=== PATIENT | male | born 1965 | race Caucasian/White ===

== ENCOUNTER 2017-12-15 11:01 | Inpatient (IN) | payer OTHER ==
[~2017-12-15] VITALS: Ht 190.5 cm; Wt 96.6 kg
[2017-12-15] MEDS ORDERED: LIDOCAINE 1%/EPI 1:100,000 20 ML VIAL. INJ ONE (11:45)
--- NOTE | 2017-12-15 12:26 | PHYS DOC ---
Past Medical History Past Medical History: Other Additional Past Medical Histor: DVT IN R LEG, 10/2017 Past Surgical History: Knee Replacement Additional Past Surgical Histo: BACK FUSION Alcohol Use: None Drug Use: None Adult General Chief Complaint Chief Complaint: LACERATION/AVULSION HPI HPI Patient is a 52 year old male who presents to the emergency Department today with complaints of a puncture wound to his lower left leg. Patient is in police custody at this time. He states he was getting down from his bunk at the [facility] when he struck his leg on a metal chair in the cell. He reports the site will not stop bleeding. He has bled through 4 pressure dressings. Pt states he is taking xarelto for a DVT in his RLE currently. He denies any numbness or tingling, loss of consciousness, or weakness. States he walked himself to the nurse in [facility] after the incident happened. Currently, he rates his pain an 8 out of 10 on the pain scale. Review of Systems Review of Systems Constitutional: Denies fever or chills [] Musculoskeletal: Denies back pain; reports left lower leg pain Integument: Denies rash, reports laceration/ puncture wound to medial left lower leg Neurologic: Denies focal weakness or sensory changes [] All other systems were reviewed and found to be within normal limits, except as documented in this note. Current Medications Current Medications Current Medications Medications (Trade) Dose Ordered Sig/Francia Start Time Stop Time Status Last Admin Dose Admin Fentanyl Citrate (Fentanyl 2ml Vial) 50 mcg 1X ONCE 12/15/17 12:30 12/15/17 12:56 DC 12/15/17 13:02 50 MCG Gelatin (Gelfoam Size 100) 1 each 1X ONCE 12/15/17 14:15 12/15/17 14:16 DC 12/15/17 14:06 1 EACH Lidocaine/ Epinephrine (LIDOCAINE 1%-EPI 1:100,000 Multi-Dose) 20 ml 1X ONCE 12/15/17 11:45 12/15/17 12:56 DC 12/15/17 14:56 20 ML Allergies Allergies Allergies Coded Allergies Type Severity Reaction Last Updated Verified No Known Drug Allergies 12/15/17 No Physical Exam Physical Exam Constitutional: Well developed, well nourished, no acute distress, non-toxic appearance. [] HENT: Normocephalic, atraumatic, bilateral external ears normal, oropharynx moist, no oral exudates, nose normal. [] Eyes: normal Skin: Warm, dry, V-shaped 2 cm x 2cm puncture/ laceration to medial left lower extremity bleeding controlled only with direct pressure Extremities: No cyanosis, no clubbing, ROM intact, no edemal; medial LLE tender to palpation [] Neurologic: Alert and oriented X 3, normal motor function, normal sensory function, no focal deficits noted. [] Psychologic: Affect normal, judgement normal, mood normal. [] Current Patient Data Vital Signs Vital Signs Date Time Temp Pulse Resp B/P (MAP) Pulse Ox O2 Delivery O2 Flow Rate FiO2 12/15/17 14:52 80 18 151/85 (107) 97 Room Air 12/15/17 11:19 98.2 98.2 Lab Values Laboratory Tests Test 12/15/17 12:43 White Blood Count 8.9 x10^3/uL (4.0-11.0) Red Blood Count 4.80 x10^6/uL (4.30-5.70) Hemoglobin 15.1 g/dL (13.0-17.5) Hematocrit 43.2 % (39.0-53.0) Mean Corpuscular Volume 90 fL (79-100) Mean Corpuscular Hemoglobin 31 pg (25-35) Mean Corpuscular Hemoglobin Concent 35 g/dL (31-37) Red Cell Distribution Width 14.0 % (11.5-14.5) Platelet Count 199 x10^3/uL (140-400) Neutrophils (%) (Auto) 84 % (31-73) H Lymphocytes (%) (Auto) 9 % (24-48) L Monocytes (%) (Auto) 5 % (0-9) Eosinophils (%) (Auto) 2 % (0-3) Basophils (%) (Auto) 1 % (0-3) Neutrophils # (Auto) 7.5 x10^3uL (1.8-7.7) Lymphocytes # (Auto) 0.8 x10^3/uL (1.0-4.8) L Monocytes # (Auto) 0.4 x10^3/uL (0.0-1.1) Eosinophils # (Auto) 0.2 x10^3/uL (0.0-0.7) Basophils # (Auto) 0.0 x10^3/uL (0.0-0.2) Prothrombin Time 21.8 SEC (11.7-14.0) H Prothrombin Time INR 2.0 (0.8-1.1) H Laboratory Tests 12/15/17 12:43 EKG EKG [] Radiology/Procedures Radiology/Procedures [] Course & Med Decision Making Course & Med Decision Making Pertinent Labs and Imaging studies reviewed. (See chart for details) X-ray was negative for any acute fracture. Bleeding ceased after suturing and gelfoam dressing was placed. Pt was instructed to continue taking xarelto and to follow up with primary care doctor or [facility] doctor tomorrow for recheck of the wound and further evalution of need for xarelto. May take tylenol as needed for pain. Activity as tolerated, sutures out in 10 days. Leave the dressing that was placed in the ER on until follow- up tomorrow. Patient verbalized an understanding of home care, medications, follow-up, and return to ED instructions and was in agreement with the plan of care. 1540- after patient ambulated to the bathroom, wound site began bleeding again, hospitalist paged for admit. 1546- spoke with Dr. Langley, will admit patient for further monitoring of laceration with bleeding. Dragon Disclaimer Dragon Disclaimer This electronic medical record was generated, in whole or in part, using a voice recognition dictation system. Departure Departure Impression: Primary Impression: Laceration of left lower leg without foreign body Additional Impression: Contusion of left lower leg, initial encounter Disposition: ADMITTED INPATIENT Admitting Physician: Angelita Langley Condition: STABLE Referrals: NO PCP (PCP) Patient Instructions: Contusion, [id number], Laceration Care, Adult, Easy-to- Read Additional Instructions: Continue taking xarelto. Follow up with primary care doctor or [facility] doctor tomorrow for recheck of the wound and further evaluation of need for xarelto. May take tylenol as needed for pain. Activity as tolerated, sutures out in 10 days. Leave the dressing that was placed in the ER on until follow- up tomorrow. Laceration/Wound Repair Laceration/Wound Repair : Wound Location: lower extremity (medial left lower leg) Wound's Depth, Shape: flap (chayo) Wound Explored: no foreign body removed Irrigated w/ Saline (ccs): 50 Betadine Prep?: Yes Anesthesia: Lidocaine w/ Epi Volume Anesthetic (ccs): 10 Wound Debrided: moderate Wound Repaired With: sutures Suture Size/Type: 3:0 Number of Sutures: 9 Layer Closure?: No Splint Applied?: No Sling Applied?: No Progress patient tolerated procedure well, mild bleeding at suture sites, gelfoam was applied by nurse and bleeding ceased. Problem Qualifiers Primary Impression: Laceration of left lower leg without foreign body Encounter type: initial encounter Qualified Codes: S81.812A - Laceration without foreign body, left lower leg, initial encounter VASYL MOREAU [employer] PROCESSING TECHNICIAN Dec 15, 2017 12:26
--- NOTE | 2017-12-15 12:29 | RAD ---
Left tibia and fibula, 2 view, 12/15/2017. HISTORY: Puncture wound A leg shackle is in place at the ankle. Mild degenerative change is present at the knee. No acute bony abnormality is detected. A partially radiopaque bandage is projected over the soft tissues medially. No radiopaque foreign body is seen in the soft tissues on this limited exam. IMPRESSION: No acute bony abnormality is detected. Electronically signed by: Eduardo Ramirez MD (12/15/2017 12:26 PM) [facility]
[2017-12-15] MEDS ORDERED: fentaNYL PF VIAL 100 MCG/2 ML VIAL IV ONE (12:30)
[2017-12-15 12:55] LABS: BASO % 1 % (0-3); EOS # 0.2 x10^3/uL (0.0-0.7); EOS % 2 % (0-3); HEMATOCRIT 43.2 % (39.0-53.0); HEMOGLOBIN 15.1 g/dL (13.0-17.5); LYMPH # 0.8 x10^3/uL (1.0-4.8); LYMPH % 9 % (24-48); MEAN CORPUSCULAR HEMOGLOBIN 31 pg (25-35); MEAN CORPUSCULAR HGB CONC 35 g/dL (31-37); MEAN CORPUSCULAR VOLUME 90 fL (79-100); MONO # 0.4 x10^3/uL (0.0-1.1); MONO % 5 % (0-9); NEUT # 7.5 x10^3uL (1.8-7.7); NEUT % 84 % (31-73); PLATELET COUNT 199 x10^3/uL (140-400); WHITE BLOOD COUNT 8.9 x10^3/uL (4.0-11.0)
[2017-12-15 13:10] LABS: PROTHROMBIN TIME PATIENT 21.8 SEC (11.7-14.0)
[2017-12-15] MEDS ORDERED: GELATIN SPONGE SIZE 100. ONE (13:58)
[2017-12-15] MEDS ORDERED: GELATIN SPONGE SIZE 100. TP ONE (14:15)
[2017-12-15] MEDS ORDERED: ONDANSETRON PF 4 MG/2 ML VIAL. IV PRN (16:00)
[2017-12-15] MEDS ORDERED: LORazepam 1 MG TABLET PO ONE (16:00)
--- NOTE | 2017-12-15 17:24 | PDOC1 ---
History and Physical Date of Admission Date of Admission DATE: 12/15/17 TIME: 17:20 Identification/Chief Complaint Chief Complaint bleeding Source Source: Chart review, Patient History of Present Illness History of Present Illness Patient Mr Villarreal is a 52 year old male admit for acute leg wound with extensive laceration, is s/p a puncture wound to his lower left leg. He fell out of his bunk and smashed his leg to a metal chair, and tore open his left lower leg on upper anteroir portion,. He bled prfusely as he is on xarleto for recent DVT He denies any numbness or tingling, loss of consciousness, or weakness. States he walked himself to the nurse in [facility] after the incident happened. Currently, he rates his pain an 8 out of 10 on the pain scale. In [facility] on drug charges, he was previously homeless Past Medical History Cardiovascular: No pertinent hx Psych: Anxiety Rheumatologic: No pertinent hx Infectious disease: No pertinent hx ENT: No pertinent hx Social History Smoke: No ALCOHOL: none Drugs: None, Other Current Problem List Problem List Problems Medical Problems: (1) Contusion of left lower leg, initial encounter Status: Acute (2) Laceration of left lower leg without foreign body Status: Acute Current Medications Current Medications Current Medications Lidocaine/ Epinephrine (LIDOCAINE 1%-EPI 1:100,000 Multi-Dose) 20 ml 1X ONCE INJ Last administered on 12/15/17at 14:56; Start 12/15/17 at 11:45; Stop at 12:56; Status DC Fentanyl Citrate (Fentanyl 2ml Vial) 50 mcg 1X ONCE IV Last administered on at 13:02; Start 12/15/17 at 12:30; Stop 12/15/17 at 12:56; Status DC Gelatin (Gelfoam Size 100) 1 each STK-MED ONCE .ROUTE ; Start 12/15/17 at 13:58 ; Stop 12/15/17 at 13:59; Status DC Gelatin (Gelfoam Size 100) 1 each 1X ONCE TP Last administered on 12/15/17at 14:06; Start 12/15/17 at 14:15; Stop 12/15/17 at 14:16; Status DC Lorazepam (Ativan) 1 mg 1X ONCE PO Last administered on 12/15/17at 16:16; Start 12/15/17 at 16:00; Stop 12/15/17 at 16:01; Status DC Ondansetron HCl (Zofran) 4 mg PRN Q8HRS PRN IV NAUSEA/VOMITING; Start 12/15/17 at 16:00; Stop 12/16/17 at 15:59 Fentanyl Citrate (Fentanyl 2ml Vial) 50 mcg PRN Q2HR PRN IV PAIN; Start at 16:00; Stop 12/16/17 at 15:59 Allergies Allergies: Coded Allergies: No Known Drug Allergies (Unverified , 12/15/17) ROS General: No: Chills, Night Sweats, Fatigue, Malaise, Appetite, Other PSYCHOLOGICAL ROS: YES: Anxiety; No: Behavioral Disorder, Concentration difficultie, Decreased libido, Depression, Disorientation, Hallucinations, Hostility, Irritablity, Memory difficulties, Mood Swings, Obsessive thoughts, Physical abuse, Sexual abuse, Sleep disturbances, Suicidal ideation, Other Eyes: No Blurry vision, No Decreased vision, No Double vision, No Dry eyes, No Excessive tearing, No Eye Pain, No Itchy Eyes, No Loss of vision, No Photophobia , No Scotomata, No Uses contacts, No Uses glasses, No Other HEENT: No: Visual Changes, Hearing change, Nasal congestion, Nasal discharge, Oral lesions, Sinus pain, Sore Throat, Epistaxis, Sneezing, Snoring, Tinnitus, Vertigo, Vocal changes, Other Respiratory: No: Cough, Hemoptysis, Orthopnea, Pleuritic Pain, Shortness of breath, SOB with excertion, Sputum Changes, Stridor, Tachypnea, Wheezing, Other Cardiovascular: No Chest Pain, No Palpitations, No Orthopnea, No Paroxysmal Noc. Dyspnea, No Edema, No Lt Headedness, No Other Gastrointestinal: Yes Nausea; No Vomiting, No Abdominal Pain, No Diarrhea, No Constipation, No Melena, No Hematochezia, No Other Genitourinary: No Dysuria, No Frequency, No Incontinence, No Hematuria, No Retention, No Discharge, No Urgency, No Pain, No Flank Pain, No Other, No , No , No , No , No , No , No Musculoskeletal: Yes Joint Pain; No Gait Disturbance, No Joint Stiffness, No Joint Swelling, No Muscle Pain, No Muscular Weakness, No Pain In:, No Swelling In:, No Other Neurological: No Behavorial Changes, No Bowel/Bladder ControlChng, No Confusion , No Dizziness, No Gait Disturbance, No Headaches, No Impaired Coord/balance, No Memory Loss, No Numbness/Tingling, No Seizures, No Speech Problems, No Tremors, No Visual Changes, No Weakness, No Other Skin: Yes Dry Skin; No Eczema, No Hair Changes, No Lumps, No Mole Changes, No Mottling, No Nail Changes, No Pruritus, No Rash, No Skin Lesion Changes, No Other, No Acne Physical Exam General: Alert, Cooperative, mild distress HEENT: PERRLA, EOMI, Mucous membr. moist/pink Lungs: Clear to auscultation Heart: S1S2, RRR, no gallops Extremities: No clubbing, No edema, Normal pulses Skin: No rashes, No significant lesion Neuro: Normal gait, Normal speech, Normal tone, Sensation intact Psych/Mental Status: Mental status NL, Mood NL Vitals Vitals Vital Signs Date Time Temp Pulse Resp B/P (MAP) Pulse Ox O2 Delivery O2 Flow Rate FiO2 12/15/17 14:52 80 18 151/85 (107) 97 Room Air 12/15/17 11:19 98.2 98.2 Labs Labs Laboratory Tests Test 12/15/17 12:43 White Blood Count 8.9 x10^3/uL (4.0-11.0) Red Blood Count 4.80 x10^6/uL (4.30-5.70) Hemoglobin 15.1 g/dL (13.0-17.5) Hematocrit 43.2 % (39.0-53.0) Mean Corpuscular Volume 90 fL (79-100) Mean Corpuscular Hemoglobin 31 pg (25-35) Mean Corpuscular Hemoglobin Concent 35 g/dL (31-37) Red Cell Distribution Width 14.0 % (11.5-14.5) Platelet Count 199 x10^3/uL (140-400) Neutrophils (%) (Auto) 84 % (31-73) Lymphocytes (%) (Auto) 9 % (24-48) Monocytes (%) (Auto) 5 % (0-9) Eosinophils (%) (Auto) 2 % (0-3) Basophils (%) (Auto) 1 % (0-3) Neutrophils # (Auto) 7.5 x10^3uL (1.8-7.7) Lymphocytes # (Auto) 0.8 x10^3/uL (1.0-4.8) Monocytes # (Auto) 0.4 x10^3/uL (0.0-1.1) Eosinophils # (Auto) 0.2 x10^3/uL (0.0-0.7) Basophils # (Auto) 0.0 x10^3/uL (0.0-0.2) Prothrombin Time 21.8 SEC (11.7-14.0) Prothromb Time International Ratio 2.0 (0.8-1.1) Laboratory Tests Test 12/15/17 12:43 White Blood Count 8.9 x10^3/uL (4.0-11.0) Red Blood Count 4.80 x10^6/uL (4.30-5.70) Hemoglobin 15.1 g/dL (13.0-17.5) Hematocrit 43.2 % (39.0-53.0) Mean Corpuscular Volume 90 fL (79-100) Mean Corpuscular Hemoglobin 31 pg (25-35) Mean Corpuscular Hemoglobin Concent 35 g/dL (31-37) Red Cell Distribution Width 14.0 % (11.5-14.5) Platelet Count 199 x10^3/uL (140-400) Neutrophils (%) (Auto) 84 % (31-73) Lymphocytes (%) (Auto) 9 % (24-48) Monocytes (%) (Auto) 5 % (0-9) Eosinophils (%) (Auto) 2 % (0-3) Basophils (%) (Auto) 1 % (0-3) Neutrophils # (Auto) 7.5 x10^3uL (1.8-7.7) Lymphocytes # (Auto) 0.8 x10^3/uL (1.0-4.8) Monocytes # (Auto) 0.4 x10^3/uL (0.0-1.1) Eosinophils # (Auto) 0.2 x10^3/uL (0.0-0.7) Basophils # (Auto) 0.0 x10^3/uL (0.0-0.2) Prothrombin Time 21.8 SEC (11.7-14.0) Prothromb Time International Ratio 2.0 (0.8-1.1) VTE Prophylaxis Ordered VTE Prophylaxis Devices: No VTE Pharmacological Prophylaxi: No Assessment/Plan Assessment/Plan leg laceration, large and with marked blood loss 9 deep sutures placed, now with marked swelling around, attempting ambulation causes marked bleeding on xarelto for contralateral leg DVT incarcerated anxiety d/o, ativan PRN pain control DC when heme stable LUIS CUTLER MD Dec 15, 2017 17:24
[2017-12-15] MEDS ORDERED: LORazepam 0.5 MG TABLET PO PRN (17:30)
[2017-12-15] MEDS: fentaNYL PF VIAL 100 MCG/2 ML VIAL IV PRN (18:24)
[2017-12-15 19:00] VITALS: BP 146/90
[2017-12-15] MEDS: oxyCODONE/APAP 5/325 1 TAB TABLET PO PRN (21:18)
[2017-12-15 23:00] VITALS: BP 156/90
[2017-12-15] MEDS ORDERED: RIVA20TA2 PO (23:35)
[2017-12-16] MEDS: oxyCODONE/APAP 5/325 1 TAB TABLET PO PRN ×4 (01:15→21:08)
[2017-12-16 03:00] VITALS: BP 164/91
[2017-12-16] MEDS ORDERED: INFLUENZA VAX SCREEN BY RX. MC PRN (03:45)
[2017-12-16 04:17] LABS: BASO % 1 % (0-3); EOS # 0.4 x10^3/uL (0.0-0.7); EOS % 5 % (0-3); HEMATOCRIT 38.6 % (39.0-53.0); HEMOGLOBIN 13.6 g/dL (13.0-17.5); LYMPH # 1.5 x10^3/uL (1.0-4.8); LYMPH % 20 % (24-48); MEAN CORPUSCULAR HEMOGLOBIN 32 pg (25-35); MEAN CORPUSCULAR HGB CONC 35 g/dL (31-37); MEAN CORPUSCULAR VOLUME 90 fL (79-100); MONO # 0.6 x10^3/uL (0.0-1.1); MONO % 8 % (0-9); NEUT # 4.8 x10^3uL (1.8-7.7); NEUT % 66 % (31-73); PLATELET COUNT 184 x10^3/uL (140-400); RED BLOOD COUNT 4.28 x10^6/uL (4.30-5.70); RED CELL DISTRIBUTION WIDTH 13.8 % (11.5-14.5); WHITE BLOOD COUNT 7.3 x10^3/uL (4.0-11.0)
[2017-12-16 07:00] VITALS: BP 149/95
--- NOTE | 2017-12-16 10:51 | PDOC ---
PROGRESS NOTES History of Present Illness History of Present Illness Assessment/Plan Assessment/Plan leg laceration, with marked blood loss 9 deep sutures placed, now with marked swelling around, attempting ambulation causes marked bleeding on xarelto for contralateral leg DVT incarcerated anxiety d/o, ativan PRN pain control DC when heme stable Vitals Vitals Vital Signs Date Time Temp Pulse Resp B/P (MAP) Pulse Ox O2 Delivery O2 Flow Rate FiO2 12/16/17 07:00 97.0 82 149/95 (113) 94 Room Air 97.0 12/15/17 23:00 19 Physical Exam General: Alert, Oriented X3, Cooperative, mild distress Heart: Regular rate, Normal S1, Normal S2 Lungs: Clear Abdomen: Normal bowel sounds, Soft Extremities: No clubbing, No edema, Normal pulses Skin: No rashes, No significant lesion, Other (laceration dressed) Labs LABS Laboratory Tests Test 12/15/17 12:43 12/16/17 03:58 White Blood Count 8.9 x10^3/uL (4.0-11.0) 7.3 x10^3/uL (4.0-11.0) Red Blood Count 4.80 x10^6/uL (4.30-5.70) 4.28 x10^6/uL (4.30-5.70) Hemoglobin 15.1 g/dL (13.0-17.5) 13.6 g/dL (13.0-17.5) Hematocrit 43.2 % (39.0-53.0) 38.6 % (39.0-53.0) Mean Corpuscular Volume 90 fL (79-100) 90 fL (79-100) Mean Corpuscular Hemoglobin 31 pg (25-35) 32 pg (25-35) Mean Corpuscular Hemoglobin Concent 35 g/dL (31-37) 35 g/dL (31-37) Red Cell Distribution Width 14.0 % (11.5-14.5) 13.8 % (11.5-14.5) Platelet Count 199 x10^3/uL (140-400) 184 x10^3/uL (140-400) Neutrophils (%) (Auto) 84 % (31-73) 66 % (31-73) Lymphocytes (%) (Auto) 9 % (24-48) 20 % (24-48) Monocytes (%) (Auto) 5 % (0-9) 8 % (0-9) Eosinophils (%) (Auto) 2 % (0-3) 5 % (0-3) Basophils (%) (Auto) 1 % (0-3) 1 % (0-3) Neutrophils # (Auto) 7.5 x10^3uL (1.8-7.7) 4.8 x10^3uL (1.8-7.7) Lymphocytes # (Auto) 0.8 x10^3/uL (1.0-4.8) 1.5 x10^3/uL (1.0-4.8) Monocytes # (Auto) 0.4 x10^3/uL (0.0-1.1) 0.6 x10^3/uL (0.0-1.1) Eosinophils # (Auto) 0.2 x10^3/uL (0.0-0.7) 0.4 x10^3/uL (0.0-0.7) Basophils # (Auto) 0.0 x10^3/uL (0.0-0.2) 0.0 x10^3/uL (0.0-0.2) Prothrombin Time 21.8 SEC (11.7-14.0) Prothromb Time International Ratio 2.0 (0.8-1.1) Assessment and Plan Assessmemt and Plan Problems Medical Problems: (1) Contusion of left lower leg, initial encounter Status: Acute (2) Laceration of left lower leg without foreign body Status: Acute Comment Review of Relevant I have reviewed the following items jono (where applicable) has been applied. Labs Laboratory Tests Test 12/15/17 12:43 12/16/17 03:58 White Blood Count 8.9 x10^3/uL (4.0-11.0) 7.3 x10^3/uL (4.0-11.0) Red Blood Count 4.80 x10^6/uL (4.30-5.70) 4.28 x10^6/uL (4.30-5.70) Hemoglobin 15.1 g/dL (13.0-17.5) 13.6 g/dL (13.0-17.5) Hematocrit 43.2 % (39.0-53.0) 38.6 % (39.0-53.0) Mean Corpuscular Volume 90 fL (79-100) 90 fL (79-100) Mean Corpuscular Hemoglobin 31 pg (25-35) 32 pg (25-35) Mean Corpuscular Hemoglobin Concent 35 g/dL (31-37) 35 g/dL (31-37) Red Cell Distribution Width 14.0 % (11.5-14.5) 13.8 % (11.5-14.5) Platelet Count 199 x10^3/uL (140-400) 184 x10^3/uL (140-400) Neutrophils (%) (Auto) 84 % (31-73) 66 % (31-73) Lymphocytes (%) (Auto) 9 % (24-48) 20 % (24-48) Monocytes (%) (Auto) 5 % (0-9) 8 % (0-9) Eosinophils (%) (Auto) 2 % (0-3) 5 % (0-3) Basophils (%) (Auto) 1 % (0-3) 1 % (0-3) Neutrophils # (Auto) 7.5 x10^3uL (1.8-7.7) 4.8 x10^3uL (1.8-7.7) Lymphocytes # (Auto) 0.8 x10^3/uL (1.0-4.8) 1.5 x10^3/uL (1.0-4.8) Monocytes # (Auto) 0.4 x10^3/uL (0.0-1.1) 0.6 x10^3/uL (0.0-1.1) Eosinophils # (Auto) 0.2 x10^3/uL (0.0-0.7) 0.4 x10^3/uL (0.0-0.7) Basophils # (Auto) 0.0 x10^3/uL (0.0-0.2) 0.0 x10^3/uL (0.0-0.2) Prothrombin Time 21.8 SEC (11.7-14.0) Prothromb Time International Ratio 2.0 (0.8-1.1) Laboratory Tests Test 12/15/17 12:43 12/16/17 03:58 White Blood Count 8.9 x10^3/uL (4.0-11.0) 7.3 x10^3/uL (4.0-11.0) Red Blood Count 4.80 x10^6/uL (4.30-5.70) 4.28 x10^6/uL (4.30-5.70) Hemoglobin 15.1 g/dL (13.0-17.5) 13.6 g/dL (13.0-17.5) Hematocrit 43.2 % (39.0-53.0) 38.6 % (39.0-53.0) Mean Corpuscular Volume 90 fL (79-100) 90 fL (79-100) Mean Corpuscular Hemoglobin 31 pg (25-35) 32 pg (25-35) Mean Corpuscular Hemoglobin Concent 35 g/dL (31-37) 35 g/dL (31-37) Red Cell Distribution Width 14.0 % (11.5-14.5) 13.8 % (11.5-14.5) Platelet Count 199 x10^3/uL (140-400) 184 x10^3/uL (140-400) Neutrophils (%) (Auto) 84 % (31-73) 66 % (31-73) Lymphocytes (%) (Auto) 9 % (24-48) 20 % (24-48) Monocytes (%) (Auto) 5 % (0-9) 8 % (0-9) Eosinophils (%) (Auto) 2 % (0-3) 5 % (0-3) Basophils (%) (Auto) 1 % (0-3) 1 % (0-3) Neutrophils # (Auto) 7.5 x10^3uL (1.8-7.7) 4.8 x10^3uL (1.8-7.7) Lymphocytes # (Auto) 0.8 x10^3/uL (1.0-4.8) 1.5 x10^3/uL (1.0-4.8) Monocytes # (Auto) 0.4 x10^3/uL (0.0-1.1) 0.6 x10^3/uL (0.0-1.1) Eosinophils # (Auto) 0.2 x10^3/uL (0.0-0.7) 0.4 x10^3/uL (0.0-0.7) Basophils # (Auto) 0.0 x10^3/uL (0.0-0.2) 0.0 x10^3/uL (0.0-0.2) Prothrombin Time 21.8 SEC (11.7-14.0) Prothromb Time International Ratio 2.0 (0.8-1.1) Medications Current Medications Lidocaine/ Epinephrine (LIDOCAINE 1%-EPI 1:100,000 Multi-Dose) 20 ml 1X ONCE INJ Last administered on 12/15/17at 14:56; Start 12/15/17 at 11:45; Stop at 12:56; Status DC Fentanyl Citrate (Fentanyl 2ml Vial) 50 mcg 1X ONCE IV Last administered on at 13:02; Start 12/15/17 at 12:30; Stop 12/15/17 at 12:56; Status DC Gelatin (Gelfoam Size 100) 1 each STK-MED ONCE .ROUTE ; Start 12/15/17 at 13:58 ; Stop 12/15/17 at 13:59; Status DC Gelatin (Gelfoam Size 100) 1 each 1X ONCE TP Last administered on 12/15/17at 14:06; Start 12/15/17 at 14:15; Stop 12/15/17 at 14:16; Status DC Lorazepam (Ativan) 1 mg 1X ONCE PO Last administered on 12/15/17at 16:16; Start 12/15/17 at 16:00; Stop 12/15/17 at 16:01; Status DC Ondansetron HCl (Zofran) 4 mg PRN Q8HRS PRN IV NAUSEA/VOMITING; Start 12/15/17 at 16:00; Stop 12/16/17 at 15:59 Fentanyl Citrate (Fentanyl 2ml Vial) 50 mcg PRN Q2HR PRN IV PAIN Last administered on 12/15/17at 18:24; Start 12/15/17 at 16:00; Stop 12/17/17 at 15:58 Oxycodone/ Acetaminophen (Percocet 5/325) 1 tab PRN Q4HRS PRN PO PAIN Last administered on 12/16/17at 05:18; Start 9/19/18 at 17:30 Lorazepam (Ativan) 0.5 mg PRN Q8HRS PRN PO ANXIETY / AGITATION; Start 12/15/17 at 17:30 Influenza Virus Vaccine (Afluria Trivalent 3128-8757 Syringe) 0.5 ml ONCE ONCE VAX IM ; Start 12/16/17 at 09:00; Stop 12/16/17 at 09:01; Status DC Info (Do NOT chart on this placeholder) 1 each PRN 1X PRN MC SEE COMMENTS; Start 12/16/17 at 03:45; Status Cancel Active Scripts Active Reported Xarelto (Rivaroxaban) 20 Mg Tablet 20 Mg PO DAILY Vitals/I & O Vital Sign - Last 24 Hours 12/15/17 12/15/17 12/15/17 12/15/17 11:19 13:38 14:52 15:22 Temp 98.2 98.2 Pulse 79 82 80 80 Resp 18 16 18 16 B/P (MAP) 151/100 (117) 145/93 (110) 151/85 (107) 147/85 (105) Pulse Ox 97 100 97 97 O2 Delivery Room Air Room Air Room Air Room Air 12/15/17 12/15/17 12/15/17 12/15/17 16:22 16:52 17:22 17:52 Pulse 80 87 110 79 Resp 18 18 B/P (MAP) 159/87 (111) 142/82 (102) 169/134 (146) 148/89 (108) Pulse Ox 97 96 96 96 O2 Delivery Room Air Room Air Room Air Room Air 12/15/17 12/15/17 12/15/17 12/15/17 18:24 19:00 19:00 20:00 Temp 97.7 97.7 Pulse 104 Resp 18 B/P (MAP) 146/90 (108) Pulse Ox 99 95 95 O2 Delivery Room Air Room Air 12/15/17 12/15/17 12/15/17 12/16/17 21:18 22:15 23:00 01:15 Temp 97.7 97.7 Pulse 82 Resp 19 B/P (MAP) 156/90 (112) Pulse Ox 95 95 95 95 O2 Delivery Room Air Room Air Room Air 12/16/17 12/16/17 12/16/17 12/16/17 03:00 05:18 06:18 07:00 Temp 97.7 97.0 97.7 97.0 Pulse 80 82 B/P (MAP) 164/91 (115) 149/95 (113) Pulse Ox 95 95 94 O2 Delivery Room Air Room Air Room Air Room Air Intake and Output 12/15/17 12/15/17 12/16/17 15:00 23:00 07:00 Intake Total 550 ml Output Total 1450 ml Balance -900 ml KAREN LÓPEZ MD Dec 16, 2017 10:50
[2017-12-16 11:00] VITALS: BP 143/103
[2017-12-16 15:00] VITALS: BP 146/95
--- NOTE | 2017-12-16 16:30 | PDOC2 ---
CONSULT Date of Consult Date of Consult DATE: 12/16/17 TIME: 16:25 Reason for Consult Reason for Consult: Bethany is a 52 yo male inmate who fell from his bunk and struck the anterior aspect of his LLE creating a v shaped skin laceration. Reportedly had some "deep stitches" placed. Is having pain, bleeding with ambulation. Referring Physician Referring Physician: HARJEET Identification/Chief Complaint Chief Complaint LLE pain Source Source: Chart review, Patient History of Present Illness Reason for Visit: See reason for consult Past Medical History Cardiovascular: No pertinent hx Psych: Anxiety Rheumatologic: No pertinent hx Infectious disease: No pertinent hx ENT: No pertinent hx Social History No ALCOHOL: none Drugs: None, Other Current Problem List Problem List Problems Medical Problems: (1) Contusion of left lower leg, initial encounter Status: Acute (2) Laceration of left lower leg without foreign body Status: Acute Current Medications Current Medications Current Medications Lidocaine/ Epinephrine (LIDOCAINE 1%-EPI 1:100,000 Multi-Dose) 20 ml 1X ONCE INJ Last administered on 12/15/17at 14:56; Start 12/15/17 at 11:45; Stop at 12:56; Status DC Fentanyl Citrate (Fentanyl 2ml Vial) 50 mcg 1X ONCE IV Last administered on at 13:02; Start 12/15/17 at 12:30; Stop 12/15/17 at 12:56; Status DC Gelatin (Gelfoam Size 100) 1 each STK-MED ONCE .ROUTE ; Start 12/15/17 at 13:58 ; Stop 12/15/17 at 13:59; Status DC Gelatin (Gelfoam Size 100) 1 each 1X ONCE TP Last administered on 12/15/17at 14:06; Start 12/15/17 at 14:15; Stop 12/15/17 at 14:16; Status DC Lorazepam (Ativan) 1 mg 1X ONCE PO Last administered on 12/15/17at 16:16; Start 12/15/17 at 16:00; Stop 12/15/17 at 16:01; Status DC Ondansetron HCl (Zofran) 4 mg PRN Q8HRS PRN IV NAUSEA/VOMITING; Start 12/15/17 at 16:00; Stop 12/16/17 at 15:59; Status DC Fentanyl Citrate (Fentanyl 2ml Vial) 50 mcg PRN Q2HR PRN IV PAIN Last administered on 12/15/17at 18:24; Start 12/15/17 at 16:00; Stop 12/17/17 at 15:58 Oxycodone/ Acetaminophen (Percocet 5/325) 1 tab PRN Q4HRS PRN PO PAIN Last administered on 12/16/17at 11:16; Start 12/15/17 at 17:30 Lorazepam (Ativan) 0.5 mg PRN Q8HRS PRN PO ANXIETY / AGITATION; Start 12/15/17 at 17:30 Influenza Virus Vaccine (Afluria Trivalent 2954-7090 Syringe) 0.5 ml ONCE ONCE VAX IM Last administered on 12/16/17at 11:20; Start 12/16/17 at 09:00; Stop at 09:01; Status DC Info (Do NOT chart on this placeholder) 1 each PRN 1X PRN MC SEE COMMENTS; Start 12/16/17 at 03:45; Status Cancel Active Scripts Active Reported Xarelto (Rivaroxaban) 20 Mg Tablet 20 Mg PO DAILY Allergies Allergies: Coded Allergies: No Known Drug Allergies (Unverified , 12/15/17) ROS Review of System negative with exception of present complaints Physical Exam General: Alert, Oriented X3, No acute distress HEENT: Atraumatic Lungs: Normal air movement Heart: Regular rate Extremities: Other (LLE with some edema, pulses present, dusky skin edges in wound) Vitals VITALS Vital Signs Date Time Temp Pulse Resp B/P (MAP) Pulse Ox O2 Delivery O2 Flow Rate FiO2 12/16/17 15:00 97.0 100 146/95 (112) 96 Room Air 97.0 12/16/17 11:16 14 Labs Labs Laboratory Tests Test 12/15/17 12:43 12/16/17 03:58 White Blood Count 8.9 x10^3/uL (4.0-11.0) 7.3 x10^3/uL (4.0-11.0) Red Blood Count 4.80 x10^6/uL (4.30-5.70) 4.28 x10^6/uL (4.30-5.70) Hemoglobin 15.1 g/dL (13.0-17.5) 13.6 g/dL (13.0-17.5) Hematocrit 43.2 % (39.0-53.0) 38.6 % (39.0-53.0) Mean Corpuscular Volume 90 fL (79-100) 90 fL (79-100) Mean Corpuscular Hemoglobin 31 pg (25-35) 32 pg (25-35) Mean Corpuscular Hemoglobin Concent 35 g/dL (31-37) 35 g/dL (31-37) Red Cell Distribution Width 14.0 % (11.5-14.5) 13.8 % (11.5-14.5) Platelet Count 199 x10^3/uL (140-400) 184 x10^3/uL (140-400) Neutrophils (%) (Auto) 84 % (31-73) 66 % (31-73) Lymphocytes (%) (Auto) 9 % (24-48) 20 % (24-48) Monocytes (%) (Auto) 5 % (0-9) 8 % (0-9) Eosinophils (%) (Auto) 2 % (0-3) 5 % (0-3) Basophils (%) (Auto) 1 % (0-3) 1 % (0-3) Neutrophils # (Auto) 7.5 x10^3uL (1.8-7.7) 4.8 x10^3uL (1.8-7.7) Lymphocytes # (Auto) 0.8 x10^3/uL (1.0-4.8) 1.5 x10^3/uL (1.0-4.8) Monocytes # (Auto) 0.4 x10^3/uL (0.0-1.1) 0.6 x10^3/uL (0.0-1.1) Eosinophils # (Auto) 0.2 x10^3/uL (0.0-0.7) 0.4 x10^3/uL (0.0-0.7) Basophils # (Auto) 0.0 x10^3/uL (0.0-0.2) 0.0 x10^3/uL (0.0-0.2) Prothrombin Time 21.8 SEC (11.7-14.0) Prothromb Time International Ratio 2.0 (0.8-1.1) Laboratory Tests Test 12/16/17 03:58 White Blood Count 7.3 x10^3/uL (4.0-11.0) Red Blood Count 4.28 x10^6/uL (4.30-5.70) Hemoglobin 13.6 g/dL (13.0-17.5) Hematocrit 38.6 % (39.0-53.0) Mean Corpuscular Volume 90 fL (79-100) Mean Corpuscular Hemoglobin 32 pg (25-35) Mean Corpuscular Hemoglobin Concent 35 g/dL (31-37) Red Cell Distribution Width 13.8 % (11.5-14.5) Platelet Count 184 x10^3/uL (140-400) Neutrophils (%) (Auto) 66 % (31-73) Lymphocytes (%) (Auto) 20 % (24-48) Monocytes (%) (Auto) 8 % (0-9) Eosinophils (%) (Auto) 5 % (0-3) Basophils (%) (Auto) 1 % (0-3) Neutrophils # (Auto) 4.8 x10^3uL (1.8-7.7) Lymphocytes # (Auto) 1.5 x10^3/uL (1.0-4.8) Monocytes # (Auto) 0.6 x10^3/uL (0.0-1.1) Eosinophils # (Auto) 0.4 x10^3/uL (0.0-0.7) Basophils # (Auto) 0.0 x10^3/uL (0.0-0.2) Assessment/Plan Assessment/Plan blunt injury to soft tissue anterior LLE suggest ortho eval to further assess wound will follow as needed Thanks JAYA BAPTISTE MD Dec 16, 2017 16:30
[2017-12-16 19:00] VITALS: BP 146/86
[2017-12-16 23:00] VITALS: BP 147/87
[2017-12-17 03:00] VITALS: BP 155/91
[2017-12-17 04:44] LABS: BASO % 1 % (0-3); EOS # 0.4 x10^3/uL (0.0-0.7); EOS % 6 % (0-3); HEMATOCRIT 40.1 % (39.0-53.0); HEMOGLOBIN 14.1 g/dL (13.0-17.5); LYMPH # 1.5 x10^3/uL (1.0-4.8); LYMPH % 22 % (24-48); MEAN CORPUSCULAR HEMOGLOBIN 32 pg (25-35); MEAN CORPUSCULAR HGB CONC 35 g/dL (31-37); MEAN CORPUSCULAR VOLUME 91 fL (79-100); MONO # 0.6 x10^3/uL (0.0-1.1); MONO % 9 % (0-9); NEUT # 4.2 x10^3uL (1.8-7.7); NEUT % 63 % (31-73); PLATELET COUNT 181 x10^3/uL (140-400); RED BLOOD COUNT 4.42 x10^6/uL (4.30-5.70); RED CELL DISTRIBUTION WIDTH 14.3 % (11.5-14.5); WHITE BLOOD COUNT 6.7 x10^3/uL (4.0-11.0)
[2017-12-17] MEDS: fentaNYL PF VIAL 100 MCG/2 ML VIAL IV PRN ×4 (05:24→16:10)
[2017-12-17 05:35] LABS: ALBUMIN 3.2 g/dL (3.4-5.0); CALCIUM 8.3 mg/dL (8.5-10.1); GFR 78.5; POTASSIUM 4.1 mmol/L (3.5-5.1); TOTAL BILIRUBIN 0.2 mg/dL (0.2-1.0); TOTAL PROTEIN 6.3 g/dL (6.4-8.2)
[2017-12-17 07:00] VITALS: BP 154/95
[2017-12-17] MEDS ORDERED: IV RINGERS,LACTATED 1000ML 1,000 ML IV SCH (09:53)
[2017-12-17] MEDS ORDERED: LIDOCAINE 1% PF 2 ML VIAL. ID PRN (10:00)
[2017-12-17] MEDS ORDERED: ONDANSETRON PF 4 MG/2 ML VIAL. IV PRN (10:00)
[2017-12-17] MEDS ORDERED: fentaNYL PF VIAL 100 MCG/2 ML VIAL IV PRN (10:00)
[2017-12-17] MEDS ORDERED: MORPHINE SULFATE 2 MG/ML VIAL. IV PRN (10:00)
[2017-12-17] MEDS ORDERED: PROCHLORPERAZINE 10 MG/2 ML VIAL. IV PRN (10:00)
[2017-12-17] MEDS ORDERED: HYDROmorphone 2 MG/ML VIAL IV PRN (10:00)
[2017-12-17] MEDS: oxyCODONE/APAP 5/325 1 TAB TABLET PO PRN ×3 (10:04→23:24)
[2017-12-17 11:00] VITALS: BP 133/86
--- NOTE | 2017-12-17 12:56 | PDOC ---
PROGRESS NOTES Chief Complaint Chief Complaint blunt injury to soft tissue anterior LLE leg laceration, with marked blood loss s/p deep sutures on xarelto for contralateral leg DVT incarcerated anxiety d/o, History of Present Illness History of Present Illness For surgery on the left leg by orthopedics-Dr. Wilson I appreciate [facility]-they recommended ortho On Xarelto for right leg DVT in October 2017, first episode, seems unprovoked, of course Xarelto being held for the above sx RN and pt tells me now patient is complaining of some sensation of difficulty breathing No hypoxia, not tachycardic Creatinine is normal Plan: CT angio chest rule out DVT In the meantime hold off Xarelto for the above surgical procedure Post op labs Empiric abx Vitals Vitals Vital Signs Date Time Temp Pulse Resp B/P (MAP) Pulse Ox O2 Delivery O2 Flow Rate FiO2 12/17/17 10:04 18 94 Room Air 12/17/17 07:00 97.9 85 154/95 (114) 97.9 Physical Exam General: Alert, Oriented X3, No acute distress Heart: Regular rate Lungs: Clear Abdomen: Normal bowel sounds, Soft Extremities: Other (LLE with some edema, pulses present, dusky skin edges in wound) Skin: No rashes, No significant lesion, Other (laceration dressed) Labs LABS Laboratory Tests Test 12/17/17 03:45 White Blood Count 6.7 x10^3/uL (4.0-11.0) Red Blood Count 4.42 x10^6/uL (4.30-5.70) Hemoglobin 14.1 g/dL (13.0-17.5) Hematocrit 40.1 % (39.0-53.0) Mean Corpuscular Volume 91 fL (79-100) Mean Corpuscular Hemoglobin 32 pg (25-35) Mean Corpuscular Hemoglobin Concent 35 g/dL (31-37) Red Cell Distribution Width 14.3 % (11.5-14.5) Platelet Count 181 x10^3/uL (140-400) Neutrophils (%) (Auto) 63 % (31-73) Lymphocytes (%) (Auto) 22 % (24-48) Monocytes (%) (Auto) 9 % (0-9) Eosinophils (%) (Auto) 6 % (0-3) Basophils (%) (Auto) 1 % (0-3) Neutrophils # (Auto) 4.2 x10^3uL (1.8-7.7) Lymphocytes # (Auto) 1.5 x10^3/uL (1.0-4.8) Monocytes # (Auto) 0.6 x10^3/uL (0.0-1.1) Eosinophils # (Auto) 0.4 x10^3/uL (0.0-0.7) Basophils # (Auto) 0.0 x10^3/uL (0.0-0.2) Sodium Level 141 mmol/L (136-145) Potassium Level 4.1 mmol/L (3.5-5.1) Chloride Level 106 mmol/L (98-107) Carbon Dioxide Level 25 mmol/L (21-32) Anion Gap 10 (6-14) Blood Urea Nitrogen 13 mg/dL (8-26) Creatinine 1.0 mg/dL (0.7-1.3) Estimated GFR (Cockcroft-Gault) 78.5 BUN/Creatinine Ratio 13 (6-20) Glucose Level 80 mg/dL (70-99) Calcium Level 8.3 mg/dL (8.5-10.1) Total Bilirubin 0.2 mg/dL (0.2-1.0) Aspartate Amino Transf (AST/SGOT) 13 U/L (15-37) Alanine Aminotransferase (ALT/SGPT) 26 U/L (16-63) Alkaline Phosphatase 55 U/L (46-116) Total Protein 6.3 g/dL (6.4-8.2) Albumin 3.2 g/dL (3.4-5.0) Albumin/Globulin Ratio 1.0 (1.0-1.7) Review of Systems Review of Systems As per above history of present illness the rest -14 point Assessment and Plan Assessmemt and Plan Problems Medical Problems: (1) Contusion of left lower leg, initial encounter Status: Acute (2) Laceration of left lower leg without foreign body Status: Acute Comment Review of Relevant I have reviewed the following items jono (where applicable) has been applied. Labs Laboratory Tests Test 12/16/17 03:58 12/17/17 03:45 White Blood Count 7.3 x10^3/uL (4.0-11.0) 6.7 x10^3/uL (4.0-11.0) Red Blood Count 4.28 x10^6/uL (4.30-5.70) 4.42 x10^6/uL (4.30-5.70) Hemoglobin 13.6 g/dL (13.0-17.5) 14.1 g/dL (13.0-17.5) Hematocrit 38.6 % (39.0-53.0) 40.1 % (39.0-53.0) Mean Corpuscular Volume 90 fL (79-100) 91 fL (79-100) Mean Corpuscular Hemoglobin 32 pg (25-35) 32 pg (25-35) Mean Corpuscular Hemoglobin Concent 35 g/dL (31-37) 35 g/dL (31-37) Red Cell Distribution Width 13.8 % (11.5-14.5) 14.3 % (11.5-14.5) Platelet Count 184 x10^3/uL (140-400) 181 x10^3/uL (140-400) Neutrophils (%) (Auto) 66 % (31-73) 63 % (31-73) Lymphocytes (%) (Auto) 20 % (24-48) 22 % (24-48) Monocytes (%) (Auto) 8 % (0-9) 9 % (0-9) Eosinophils (%) (Auto) 5 % (0-3) 6 % (0-3) Basophils (%) (Auto) 1 % (0-3) 1 % (0-3) Neutrophils # (Auto) 4.8 x10^3uL (1.8-7.7) 4.2 x10^3uL (1.8-7.7) Lymphocytes # (Auto) 1.5 x10^3/uL (1.0-4.8) 1.5 x10^3/uL (1.0-4.8) Monocytes # (Auto) 0.6 x10^3/uL (0.0-1.1) 0.6 x10^3/uL (0.0-1.1) Eosinophils # (Auto) 0.4 x10^3/uL (0.0-0.7) 0.4 x10^3/uL (0.0-0.7) Basophils # (Auto) 0.0 x10^3/uL (0.0-0.2) 0.0 x10^3/uL (0.0-0.2) Sodium Level 141 mmol/L (136-145) Potassium Level 4.1 mmol/L (3.5-5.1) Chloride Level 106 mmol/L (98-107) Carbon Dioxide Level 25 mmol/L (21-32) Anion Gap 10 (6-14) Blood Urea Nitrogen 13 mg/dL (8-26) Creatinine 1.0 mg/dL (0.7-1.3) Estimated GFR (Cockcroft-Gault) 78.5 BUN/Creatinine Ratio 13 (6-20) Glucose Level 80 mg/dL (70-99) Calcium Level 8.3 mg/dL (8.5-10.1) Total Bilirubin 0.2 mg/dL (0.2-1.0) Aspartate Amino Transf (AST/SGOT) 13 U/L (15-37) Alanine Aminotransferase (ALT/SGPT) 26 U/L (16-63) Alkaline Phosphatase 55 U/L (46-116) Total Protein 6.3 g/dL (6.4-8.2) Albumin 3.2 g/dL (3.4-5.0) Albumin/Globulin Ratio 1.0 (1.0-1.7) Laboratory Tests Test 12/17/17 03:45 White Blood Count 6.7 x10^3/uL (4.0-11.0) Red Blood Count 4.42 x10^6/uL (4.30-5.70) Hemoglobin 14.1 g/dL (13.0-17.5) Hematocrit 40.1 % (39.0-53.0) Mean Corpuscular Volume 91 fL (79-100) Mean Corpuscular Hemoglobin 32 pg (25-35) Mean Corpuscular Hemoglobin Concent 35 g/dL (31-37) Red Cell Distribution Width 14.3 % (11.5-14.5) Platelet Count 181 x10^3/uL (140-400) Neutrophils (%) (Auto) 63 % (31-73) Lymphocytes (%) (Auto) 22 % (24-48) Monocytes (%) (Auto) 9 % (0-9) Eosinophils (%) (Auto) 6 % (0-3) Basophils (%) (Auto) 1 % (0-3) Neutrophils # (Auto) 4.2 x10^3uL (1.8-7.7) Lymphocytes # (Auto) 1.5 x10^3/uL (1.0-4.8) Monocytes # (Auto) 0.6 x10^3/uL (0.0-1.1) Eosinophils # (Auto) 0.4 x10^3/uL (0.0-0.7) Basophils # (Auto) 0.0 x10^3/uL (0.0-0.2) Sodium Level 141 mmol/L (136-145) Potassium Level 4.1 mmol/L (3.5-5.1) Chloride Level 106 mmol/L (98-107) Carbon Dioxide Level 25 mmol/L (21-32) Anion Gap 10 (6-14) Blood Urea Nitrogen 13 mg/dL (8-26) Creatinine 1.0 mg/dL (0.7-1.3) Estimated GFR (Cockcroft-Gault) 78.5 BUN/Creatinine Ratio 13 (6-20) Glucose Level 80 mg/dL (70-99) Calcium Level 8.3 mg/dL (8.5-10.1) Total Bilirubin 0.2 mg/dL (0.2-1.0) Aspartate Amino Transf (AST/SGOT) 13 U/L (15-37) Alanine Aminotransferase (ALT/SGPT) 26 U/L (16-63) Alkaline Phosphatase 55 U/L (46-116) Total Protein 6.3 g/dL (6.4-8.2) Albumin 3.2 g/dL (3.4-5.0) Albumin/Globulin Ratio 1.0 (1.0-1.7) Medications Current Medications Lidocaine/ Epinephrine (LIDOCAINE 1%-EPI 1:100,000 Multi-Dose) 20 ml 1X ONCE INJ Last administered on 12/15/17at 14:56; Start 12/15/17 at 11:45; Stop at 12:56; Status DC Fentanyl Citrate (Fentanyl 2ml Vial) 50 mcg 1X ONCE IV Last administered on at 13:02; Start 12/15/17 at 12:30; Stop 12/15/17 at 12:56; Status DC Gelatin (Gelfoam Size 100) 1 each STK-MED ONCE .ROUTE ; Start 12/15/17 at 13:58 ; Stop 12/15/17 at 13:59; Status DC Gelatin (Gelfoam Size 100) 1 each 1X ONCE TP Last administered on 12/15/17at 14:06; Start 12/15/17 at 14:15; Stop 12/15/17 at 14:16; Status DC Lorazepam (Ativan) 1 mg 1X ONCE PO Last administered on 12/15/17at 16:16; Start 12/15/17 at 16:00; Stop 12/15/17 at 16:01; Status DC Ondansetron HCl (Zofran) 4 mg PRN Q8HRS PRN IV NAUSEA/VOMITING; Start 12/15/17 at 16:00; Stop 12/16/17 at 15:59; Status DC Fentanyl Citrate (Fentanyl 2ml Vial) 50 mcg PRN Q2HR PRN IV PAIN Last administered on 12/17/17at 08:51; Start 12/15/17 at 16:00; Stop 12/17/17 at 15:58 Oxycodone/ Acetaminophen (Percocet 5/325) 1 tab PRN Q4HRS PRN PO MODERATE- SEVERE PAIN Last administered on 12/17/17at 10:04; Start 12/15/17 at 17:30 Lorazepam (Ativan) 0.5 mg PRN Q8HRS PRN PO ANXIETY / AGITATION; Start 12/15/17 at 17:30 Influenza Virus Vaccine (Afluria Trivalent [id number] Syringe) 0.5 ml ONCE ONCE VAX IM Last administered on 12/16/17at 11:20; Start 12/16/17 at 09:00; Stop at 09:01; Status DC Info (Do NOT chart on this placeholder) 1 each PRN 1X PRN MC SEE COMMENTS; Start 12/16/17 at 03:45; Status Cancel Ondansetron HCl (Zofran) 4 mg PRN Q6HRS PRN IV NAUSEA/VOMITING; Start 12/17/17 at 10:00; Stop 12/18/17 at 09:59 Fentanyl Citrate (Fentanyl 2ml Vial) 25 mcg PRN Q5MIN PRN IV MILD PAIN; Start 12/17/17 at 10:00; Stop 12/18/17 at 09:59 Fentanyl Citrate (Fentanyl 2ml Vial) 50 mcg PRN Q5MIN PRN IV MODERATE TO SEVERE PAIN; Start 12/17/17 at 10:00; Stop 12/18/17 at 09:59 Morphine Sulfate (Morphine Sulfate) 1 mg PRN Q10MIN PRN IV SEVERE PAIN; Start 12/17/17 at 10:00; Stop 12/18/17 at 09:59 Ringer's Solution 1,000 ml @ 30 mls/hr Q24H IV ; Start 12/17/17 at 09:53; Stop 12/17/17 at 21:52 Lidocaine HCl (Xylocaine-Mpf 1% 2ml Vial) 2 ml 1X PRN PRN ID IV START; Start at 10:00; Stop 12/18/17 at 09:59 Hydromorphone HCl (Dilaudid) 0.5 mg PRN Q10MIN PRN IV SEV PAIN, Second choice; Start 12/17/17 at 10:00; Stop 12/18/17 at 09:59 Prochlorperazine Edisylate (Compazine) 5 mg PACU PRN PRN IV NAUSEA, MRX1; Start 12/17/17 at 10:00; Stop 12/18/17 at 09:59 Albuterol Sulfate (Ventolin Neb Soln) 2.5 mg PRN Q4HRS PRN NEB SHORTNESS OF BREATH; Start 12/17/17 at 13:00 Acetaminophen (Tylenol) 500 mg PRN Q6HRS PRN PO MILD PAIN / TEMP; Start at 13:00 Active Scripts Active Reported Xarelto (Rivaroxaban) 20 Mg Tablet 20 Mg PO DAILY Vitals/I & O Vital Sign - Last 24 Hours 12/16/17 12/16/17 12/16/17 12/16/17 15:00 19:00 20:00 21:08 Temp 97.0 98.8 97.0 98.8 Pulse 100 97 B/P (MAP) 146/95 (112) 146/86 (106) Pulse Ox 96 95 O2 Delivery Room Air Room Air Room Air Room Air 12/16/17 12/17/17 12/17/17 12/17/17 23:00 03:00 05:24 07:00 Temp 98.1 97.7 97.9 98.1 97.7 97.9 Pulse 79 71 85 Resp 18 18 16 B/P (MAP) 147/87 (107) 155/91 (112) 154/95 (114) Pulse Ox 92 94 94 O2 Delivery Room Air Room Air Room Air Room Air 12/17/17 12/17/17 12/17/17 08:51 09:21 10:04 Resp 18 18 18 Pulse Ox 94 94 94 O2 Delivery Room Air Room Air Room Air Intake and Output 12/16/17 12/16/17 12/17/17 15:00 23:00 07:00 Intake Total 400 ml Output Total 1360 ml 1200 ml Balance -960 ml -1200 ml SARAH VINES MD Dec 17, 2017 12:56
[2017-12-17] MEDS ORDERED: ALBUTEROL SULFATE 2.5 MG/3 ML NEBU. NEB PRN (13:00)
[2017-12-17] MEDS ORDERED: PROPOFOL 20 ML IV ONE (14:00)
[2017-12-17] MEDS ORDERED: DEXAMETHASONE SOD PHOS 20 MG/5 ML VIAL. ONE (14:00)
[2017-12-17] MEDS ORDERED: FAMOTIDINE 20 MG/2 ML VIAL ONE (14:00)
[2017-12-17] MEDS ORDERED: MIDAZOLAM HCL/PF 2 MG/2 ML VIAL. ONE (14:00)
[2017-12-17] MEDS ORDERED: ONDANSETRON PF 4 MG/2 ML VIAL. ONE (14:00)
[2017-12-17] MEDS ORDERED: fentaNYL PF VIAL 100 MCG/2 ML VIAL ONE ×2 (14:00→15:41)
[2017-12-17 15:00] VITALS: BP 145/86
[2017-12-17] MEDS ORDERED: PHENYLEPHRINE in 0.9% NACL PF 1 MG/10 ML SYRINGE. IV ONE (15:01)
[2017-12-17] MEDS ORDERED: SEVOFLURANE 31 TO 60 MINUTES. IH ONE (15:08)
--- NOTE | 2017-12-17 16:06 | PDOC4 ---
Operative Note Operative Note Date of surgery: 12/17/2017 Preoperative diagnosis left leg laceration with surrounding swelling redness possible hematoma versus abscess Postoperative diagnosis: Left leg laceration with hematoma Operative procedure: Irrigation debridement left leg wound with hematoma evacuation and closure Surgeon: Katie Anesthesia: Gen. Estimated blood loss: 15 mL exclusive of hematoma Intraoperative cultures sent Complications: None Operative indications: Bethany is a 52-year-old male that injured himself in his presence cell when he was getting down off his bunk in this leg hit him metal table. He subsequently had a V-shaped laceration and developed a lot of swelling pain and redness in blood through several dressings. He is on Xarelto due to a DVT in the right lower extremity and was evaluated with a concern of possible abscess infection surrounding the left leg wound. He verbalizes understanding of the surgical risks of bleeding and may undergo multiple procedures if there is an issue with ongoing infection. All his questions were answered he wishes to proceed with surgical evaluation and treatment Operative text: Patient was identified procedure verified patient placed in the supine position on the operating table. After adequate amounts of general anesthesia were administered the left lower extremity was prepped and draped in standard sterile fashion with a thigh tourniquet. After timeout was performed patient procedure identified and verified sutures were removed from the previous closure he was noted to have some compromise of the inner portion of the distal wound as it formed a "v". There was no gross. Lengths noted however intraoperative cultures were obtained of the hematoma which was thoroughly debrided from the area and expressed. After evacuation of the hematoma thorough irrigation carried out with normal saline solution no significant bleeding was noted. A loose closure was accomplished of the skin edges with nylon suture sterile dressings were applied and a light wrap with cast padding and Girma wrap. Tourniquet was not inflated throughout the procedure patient was returned to recovery room in stable condition having tolerated procedure well LISA BRUMFIELD MD Dec 17, 2017 16:06
[2017-12-17 19:00] VITALS: BP 131/85
[2017-12-17] MEDS: MORPHINE SULFATE 2 MG/ML VIAL. IV PRN (20:06)
[2017-12-17] MEDS ORDERED: CONTRAST GIVEN. MC PRN (22:00)
[2017-12-17] MEDS ORDERED: IOHEXOL 300 MG/ML 100ML VIAL. IT ONE (22:00)
[2017-12-17 23:00] VITALS: BP 136/86
--- NOTE | 2017-12-17 23:14 | CONS ---
DATE OF CONSULTATION: 12/17/2017 ORTHOPEDIC CONSULTATION REQUESTING PHYSICIAN: Georgi Monterroso M.D. REASON FOR CONSULTATION: Left leg wound. HISTORY OF PRESENT ILLNESS: The patient is a 52-year-old male who is currently incarcerated, who was getting down from his bunk at the long term when he struck his leg on a metal chair in his cell. He was initially treated with pressure dressings and bled through several of those and his ongoing bleeding was a concern as he was taking Xarelto for a right lower extremity DVT. After the area was sutured up, he subsequently developed a large swollen area that was red, painful. It is not necessarily worse with weightbearing, but throbs if it is in the dependent position. Denies any radiating pain, numbness or tingling. PAST MEDICAL HISTORY: Significant for the DVT in his right leg. PAST SURGICAL HISTORY: Back fusion and knee replacement. ALLERGIES: He has no known drug allergies. MEDICATIONS: Medication list is reviewed. SOCIAL HISTORY: Incarcerated. Denies alcohol or drug use. REVIEW OF SYSTEMS: Again, denies any fever, chills, worsening right leg swelling, joint pain, radiating pain, numbness or tingling in the extremities. Significant really for the left leg swelling, around the area of the laceration, pain and redness. PHYSICAL EXAMINATION: On examination of the left leg, he has an irregular V-shaped laceration of his leg that is currently sutured. He has a large, perhaps a hematoma or other fluid collection with some surrounding redness that is very tender to palpation around the area of the swelling only. Really not any distal or proximal problem in terms of sensitivity and directly tender on palpation only. He has normal alignment and stability of bilateral hips, knees and ankles. IMPRESSION: Left leg laceration with hematoma, possible abscess. TREATMENT PLAN: I had gone over with him that there is certainly concern for infection and he is very tender over this area. I told him that our plan would be to open this area up, obtain cultures and treat him appropriately based on the exploration and findings intraoperatively. All his questions were answered. He wishes to proceed with surgical evaluation and treatment, which will occur today pending adequate time for n.p.o. status as he had had breakfast this morning. LISA BRUMFIELD MD DR: KIARRA/perez JOB#: [id number] / [id number]
--- NOTE | 2017-12-17 23:31 | RAD ---
CTA scan of the Chest with Contrast (Pulmonary Embolism protocol) 12/17/2017 Clinical History: Chest pain. History of DVT. Technique: After the intravenous administration of 75 cc of Omnipaque 300, contiguous, 0.625 mm axial sections were obtained through the chest. 2 mm axial and 3D MIP coronal and sagittal reconstructed images were obtained. One or more of the following individualized dose reduction techniques were utilized for this study: 1. Automated exposure control. 2. Adjustment of the mA and/or kV according to patient size. 3. Use of iterative reconstruction technique. Findings: No filling defect is seen within the major branches of either pulmonary artery. There is no CT evidence of pulmonary embolism. The heart is normal in size. The thoracic aorta is mildly tortuous but tapers normally. Dependent subsegmental atelectasis is seen involving both lungs. Linear bands of subsegmental atelectasis are seen involving both lower lobes. No area of consolidation is seen. No pneumothorax or pleural effusion is seen. Impression: There is no CT evidence of pulmonary embolism. Electronically signed by: Manan Murillo MD (12/17/2017 11:28 PM) [facility]
[2017-12-18] MEDS: ACETAMINOPHEN 500 MG TABLET PO PRN ×2 (01:12→14:48)
[2017-12-18 03:00] VITALS: BP 153/76
[2017-12-18 05:45] LABS: BASO % 0 % (0-3); EOS % 0 % (0-3); HEMATOCRIT 41.4 % (39.0-53.0); HEMOGLOBIN 14.3 g/dL (13.0-17.5); LYMPH # 0.7 x10^3/uL (1.0-4.8); LYMPH % 6 % (24-48); MEAN CORPUSCULAR HEMOGLOBIN 31 pg (25-35); MEAN CORPUSCULAR HGB CONC 35 g/dL (31-37); MEAN CORPUSCULAR VOLUME 90 fL (79-100); MONO # 0.5 x10^3/uL (0.0-1.1); MONO % 5 % (0-9); NEUT # 9.5 x10^3uL (1.8-7.7); NEUT % 89 % (31-73); PLATELET COUNT 204 x10^3/uL (140-400); RED BLOOD COUNT 4.58 x10^6/uL (4.30-5.70); WHITE BLOOD COUNT 10.7 x10^3/uL (4.0-11.0)
[2017-12-18 06:10] LABS: ALBUMIN 3.4 g/dL (3.4-5.0); ALBUMIN/GLOBULIN RATIO 0.9 (1.0-1.7); CALCIUM 9.6 mg/dL (8.5-10.1); CREATININE 0.9 mg/dL (0.7-1.3); GFR 88.6; TOTAL PROTEIN 7.1 g/dL (6.4-8.2)
[2017-12-18 06:11] LABS: POTASSIUM 4.2 mmol/L (3.5-5.1); TOTAL BILIRUBIN 0.3 mg/dL (0.2-1.0)
[2017-12-18 07:00] VITALS: BP 145/84
[2017-12-18] MEDS: oxyCODONE/APAP 5/325 1 TAB TABLET PO PRN ×3 (08:09→19:24)
[2017-12-18 09:15] LABS: % ATYL 1 % (0-0); % BANDS 3 % (0-9); % LYMPHS 9 % (24-48); % MONOS 5 % (0-10); % SEGS 82 % (35-66); PLT ESTIMATE ADEQUATE (ADEQUATE)
[2017-12-18 11:34] VITALS: BP 131/87
--- NOTE | 2017-12-18 12:27 | PDOC ---
PROGRESS NOTES Chief Complaint Chief Complaint blunt injury to soft tissue anterior LLE leg laceration, with marked blood loss s/p deep sutures on xarelto for contralateral leg DVT incarcerated anxiety d/o, right arm and leg weakness with parathesia, allodynia and tingling pain, History of Present Illness History of Present Illness s/p surg Dr. 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 Figueroa, probable Meralgia paresthetica Vitals Vitals Vital Signs Date Time Temp Pulse Resp B/P (MAP) Pulse Ox O2 Delivery O2 Flow Rate FiO2 12/18/17 11:34 97.5 94 16 131/87 (102) 96 Room Air 97.5 12/17/17 16:40 10.0 Physical Exam General: Alert, Oriented X3, No acute distress Heart: Regular rate Lungs: Clear Abdomen: Normal bowel sounds, Soft Extremities: Other (LLE with some edema, pulses present, dusky skin edges in wound) Skin: No rashes, No significant lesion, Other (laceration dressed) Labs LABS Laboratory Tests Test 12/18/17 04:40 White Blood Count 10.7 x10^3/uL (4.0-11.0) Red Blood Count 4.58 x10^6/uL (4.30-5.70) Hemoglobin 14.3 g/dL (13.0-17.5) Hematocrit 41.4 % (39.0-53.0) Mean Corpuscular Volume 90 fL (79-100) Mean Corpuscular Hemoglobin 31 pg (25-35) Mean Corpuscular Hemoglobin Concent 35 g/dL (31-37) Red Cell Distribution Width 14.0 % (11.5-14.5) Platelet Count 204 x10^3/uL (140-400) Neutrophils (%) (Auto) 89 % (31-73) Lymphocytes (%) (Auto) 6 % (24-48) Monocytes (%) (Auto) 5 % (0-9) Eosinophils (%) (Auto) 0 % (0-3) Basophils (%) (Auto) 0 % (0-3) Neutrophils # (Auto) 9.5 x10^3uL (1.8-7.7) Lymphocytes # (Auto) 0.7 x10^3/uL (1.0-4.8) Monocytes # (Auto) 0.5 x10^3/uL (0.0-1.1) Eosinophils # (Auto) 0.0 x10^3/uL (0.0-0.7) Basophils # (Auto) 0.0 x10^3/uL (0.0-0.2) Segmented Neutrophils % 82 % (35-66) Band Neutrophils % 3 % (0-9) Lymphocytes % 9 % (24-48) Atypical Lymphocytes % (Manual) 1 % (0-0) Monocytes % 5 % (0-10) Platelet Estimate Adequate (ADEQUATE) Sodium Level 138 mmol/L (136-145) Potassium Level 4.2 mmol/L (3.5-5.1) Chloride Level 102 mmol/L (98-107) Carbon Dioxide Level 27 mmol/L (21-32) Anion Gap 9 (6-14) Blood Urea Nitrogen 12 mg/dL (8-26) Creatinine 0.9 mg/dL (0.7-1.3) Estimated GFR (Cockcroft-Gault) 88.6 BUN/Creatinine Ratio 13 (6-20) Glucose Level 152 mg/dL (70-99) Calcium Level 9.6 mg/dL (8.5-10.1) Total Bilirubin 0.3 mg/dL (0.2-1.0) Aspartate Amino Transf (AST/SGOT) 13 U/L (15-37) Alanine Aminotransferase (ALT/SGPT) 28 U/L (16-63) Alkaline Phosphatase 60 U/L (46-116) Total Protein 7.1 g/dL (6.4-8.2) Albumin 3.4 g/dL (3.4-5.0) Albumin/Globulin Ratio 0.9 (1.0-1.7) Assessment and Plan Assessmemt and Plan Problems Medical Problems: (1) Contusion of left lower leg, initial encounter Status: Acute (2) Laceration of left lower leg without foreign body Status: Acute Comment Review of Relevant I have reviewed the following items jono (where applicable) has been applied. Labs Laboratory Tests Test 12/16/17 22:30 12/17/17 03:45 12/18/17 04:40 Nasal Screen MRSA (PCR) Negative (Negative) White Blood Count 6.7 x10^3/uL (4.0-11.0) 10.7 x10^3/uL (4.0-11.0) Red Blood Count 4.42 x10^6/uL (4.30-5.70) 4.58 x10^6/uL (4.30-5.70) Hemoglobin 14.1 g/dL (13.0-17.5) 14.3 g/dL (13.0-17.5) Hematocrit 40.1 % (39.0-53.0) 41.4 % (39.0-53.0) Mean Corpuscular Volume 91 fL (79-100) 90 fL (79-100) Mean Corpuscular Hemoglobin 32 pg (25-35) 31 pg (25-35) Mean Corpuscular Hemoglobin Concent 35 g/dL (31-37) 35 g/dL (31-37) Red Cell Distribution Width 14.3 % (11.5-14.5) 14.0 % (11.5-14.5) Platelet Count 181 x10^3/uL (140-400) 204 x10^3/uL (140-400) Neutrophils (%) (Auto) 63 % (31-73) 89 % (31-73) Lymphocytes (%) (Auto) 22 % (24-48) 6 % (24-48) Monocytes (%) (Auto) 9 % (0-9) 5 % (0-9) Eosinophils (%) (Auto) 6 % (0-3) 0 % (0-3) Basophils (%) (Auto) 1 % (0-3) 0 % (0-3) Neutrophils # (Auto) 4.2 x10^3uL (1.8-7.7) 9.5 x10^3uL (1.8-7.7) Lymphocytes # (Auto) 1.5 x10^3/uL (1.0-4.8) 0.7 x10^3/uL (1.0-4.8) Monocytes # (Auto) 0.6 x10^3/uL (0.0-1.1) 0.5 x10^3/uL (0.0-1.1) Eosinophils # (Auto) 0.4 x10^3/uL (0.0-0.7) 0.0 x10^3/uL (0.0-0.7) Basophils # (Auto) 0.0 x10^3/uL (0.0-0.2) 0.0 x10^3/uL (0.0-0.2) Sodium Level 141 mmol/L (136-145) 138 mmol/L (136-145) Potassium Level 4.1 mmol/L (3.5-5.1) 4.2 mmol/L (3.5-5.1) Chloride Level 106 mmol/L (98-107) 102 mmol/L (98-107) Carbon Dioxide Level 25 mmol/L (21-32) 27 mmol/L (21-32) Anion Gap 10 (6-14) 9 (6-14) Blood Urea Nitrogen 13 mg/dL (8-26) 12 mg/dL (8-26) Creatinine 1.0 mg/dL (0.7-1.3) 0.9 mg/dL (0.7-1.3) Estimated GFR (Cockcroft-Gault) 78.5 88.6 BUN/Creatinine Ratio 13 (6-20) 13 (6-20) Glucose Level 80 mg/dL (70-99) 152 mg/dL (70-99) Calcium Level 8.3 mg/dL (8.5-10.1) 9.6 mg/dL (8.5-10.1) Total Bilirubin 0.2 mg/dL (0.2-1.0) 0.3 mg/dL (0.2-1.0) Aspartate Amino Transf (AST/SGOT) 13 U/L (15-37) 13 U/L (15-37) Alanine Aminotransferase (ALT/SGPT) 26 U/L (16-63) 28 U/L (16-63) Alkaline Phosphatase 55 U/L (46-116) 60 U/L (46-116) Total Protein 6.3 g/dL (6.4-8.2) 7.1 g/dL (6.4-8.2) Albumin 3.2 g/dL (3.4-5.0) 3.4 g/dL (3.4-5.0) Albumin/Globulin Ratio 1.0 (1.0-1.7) 0.9 (1.0-1.7) Segmented Neutrophils % 82 % (35-66) Band Neutrophils % 3 % (0-9) Lymphocytes % 9 % (24-48) Atypical Lymphocytes % (Manual) 1 % (0-0) Monocytes % 5 % (0-10) Platelet Estimate Adequate (ADEQUATE) Laboratory Tests Test 12/18/17 04:40 White Blood Count 10.7 x10^3/uL (4.0-11.0) Red Blood Count 4.58 x10^6/uL (4.30-5.70) Hemoglobin 14.3 g/dL (13.0-17.5) Hematocrit 41.4 % (39.0-53.0) Mean Corpuscular Volume 90 fL (79-100) Mean Corpuscular Hemoglobin 31 pg (25-35) Mean Corpuscular Hemoglobin Concent 35 g/dL (31-37) Red Cell Distribution Width 14.0 % (11.5-14.5) Platelet Count 204 x10^3/uL (140-400) Neutrophils (%) (Auto) 89 % (31-73) Lymphocytes (%) (Auto) 6 % (24-48) Monocytes (%) (Auto) 5 % (0-9) Eosinophils (%) (Auto) 0 % (0-3) Basophils (%) (Auto) 0 % (0-3) Neutrophils # (Auto) 9.5 x10^3uL (1.8-7.7) Lymphocytes # (Auto) 0.7 x10^3/uL (1.0-4.8) Monocytes # (Auto) 0.5 x10^3/uL (0.0-1.1) Eosinophils # (Auto) 0.0 x10^3/uL (0.0-0.7) Basophils # (Auto) 0.0 x10^3/uL (0.0-0.2) Segmented Neutrophils % 82 % (35-66) Band Neutrophils % 3 % (0-9) Lymphocytes % 9 % (24-48) Atypical Lymphocytes % (Manual) 1 % (0-0) Monocytes % 5 % (0-10) Platelet Estimate Adequate (ADEQUATE) Sodium Level 138 mmol/L (136-145) Potassium Level 4.2 mmol/L (3.5-5.1) Chloride Level 102 mmol/L (98-107) Carbon Dioxide Level 27 mmol/L (21-32) Anion Gap 9 (6-14) Blood Urea Nitrogen 12 mg/dL (8-26) Creatinine 0.9 mg/dL (0.7-1.3) Estimated GFR (Cockcroft-Gault) 88.6 BUN/Creatinine Ratio 13 (6-20) Glucose Level 152 mg/dL (70-99) Calcium Level 9.6 mg/dL (8.5-10.1) Total Bilirubin 0.3 mg/dL (0.2-1.0) Aspartate Amino Transf (AST/SGOT) 13 U/L (15-37) Alanine Aminotransferase (ALT/SGPT) 28 U/L (16-63) Alkaline Phosphatase 60 U/L (46-116) Total Protein 7.1 g/dL (6.4-8.2) Albumin 3.4 g/dL (3.4-5.0) Albumin/Globulin Ratio 0.9 (1.0-1.7) Medications Current Medications Lidocaine/ Epinephrine (LIDOCAINE 1%-EPI 1:100,000 Multi-Dose) 20 ml 1X ONCE INJ Last administered on 12/15/17at 14:56; Start 12/15/17 at 11:45; Stop at 12:56; Status DC Fentanyl Citrate (Fentanyl 2ml Vial) 50 mcg 1X ONCE IV Last administered on at 13:02; Start 12/15/17 at 12:30; Stop 12/15/17 at 12:56; Status DC Gelatin (Gelfoam Size 100) 1 each STK-MED ONCE .ROUTE ; Start 12/15/17 at 13:58 ; Stop 12/15/17 at 13:59; Status DC Gelatin (Gelfoam Size 100) 1 each 1X ONCE TP Last administered on 12/15/17at 14:06; Start 12/15/17 at 14:15; Stop 12/15/17 at 14:16; Status DC Lorazepam (Ativan) 1 mg 1X ONCE PO Last administered on 12/15/17at 16:16; Start 12/15/17 at 16:00; Stop 12/15/17 at 16:01; Status DC Ondansetron HCl (Zofran) 4 mg PRN Q8HRS PRN IV NAUSEA/VOMITING; Start 12/15/17 at 16:00; Stop 12/16/17 at 15:59; Status DC Fentanyl Citrate (Fentanyl 2ml Vial) 50 mcg PRN Q2HR PRN IV PAIN Last administered on 12/17/17at 08:51; Start 12/15/17 at 16:00; Stop 12/17/17 at 15:58 ; Status DC Oxycodone/ Acetaminophen (Percocet 5/325) 1 tab PRN Q4HRS PRN PO MODERATE- SEVERE PAIN Last administered on 12/18/17at 08:09; Start 12/15/17 at 17:30 Lorazepam (Ativan) 0.5 mg PRN Q8HRS PRN PO ANXIETY / AGITATION; Start 12/15/17 at 17:30 Influenza Virus Vaccine (Afluria Trivalent [id number] Syringe) 0.5 ml ONCE ONCE VAX IM Last administered on 12/16/17at 11:20; Start 12/16/17 at 09:00; Stop at 09:01; Status DC Info (Do NOT chart on this placeholder) 1 each PRN 1X PRN MC SEE COMMENTS; Start 12/16/17 at 03:45; Status Cancel Ondansetron HCl (Zofran) 4 mg PRN Q6HRS PRN IV NAUSEA/VOMITING; Start 12/17/17 at 10:00; Stop 12/18/17 at 09:59; Status DC Fentanyl Citrate (Fentanyl 2ml Vial) 25 mcg PRN Q5MIN PRN IV MILD PAIN; Start 12/17/17 at 10:00; Stop 12/18/17 at 09:59; Status DC Fentanyl Citrate (Fentanyl 2ml Vial) 50 mcg PRN Q5MIN PRN IV MODERATE TO SEVERE PAIN Last administered on 12/17/17at 16:10; Start 12/17/17 at 10:00; Stop 12/18/17 at 09:59; Status DC Morphine Sulfate (Morphine Sulfate) 1 mg PRN Q10MIN PRN IV SEVERE PAIN; Start 12/17/17 at 10:00; Stop 12/18/17 at 09:59; Status DC Ringer's Solution 1,000 ml @ 30 mls/hr Q24H IV Last administered on 12/17/17at 09:53; Start 12/17/17 at 09:53; Stop 12/17/17 at 17:08; Status DC Lidocaine HCl (Xylocaine-Mpf 1% 2ml Vial) 2 ml 1X PRN PRN ID IV START; Start at 10:00; Stop 12/18/17 at 09:59; Status DC Hydromorphone HCl (Dilaudid) 0.5 mg PRN Q10MIN PRN IV SEV PAIN, Second choice; Start 12/17/17 at 10:00; Stop 12/18/17 at 09:59; Status DC Prochlorperazine Edisylate (Compazine) 5 mg PACU PRN PRN IV NAUSEA, MRX1; Start 12/17/17 at 10:00; Stop 12/18/17 at 09:59; Status DC Albuterol Sulfate (Ventolin Neb Soln) 2.5 mg PRN Q4HRS PRN NEB SHORTNESS OF BREATH; Start 12/17/17 at 13:00 Acetaminophen (Tylenol) 500 mg PRN Q6HRS PRN PO MILD PAIN / TEMP Last administered on 12/18/17at 01:12; Start 12/17/17 at 13:00 Dexamethasone Sodium Phosphate (Decadron) 20 mg STK-MED ONCE .ROUTE ; Start at 14:00; Stop 12/17/17 at 14:01; Status DC Famotidine (Pepcid Vial) 20 mg STK-MED ONCE .ROUTE ; Start 12/17/17 at 14:00; Stop 12/17/17 at 14:01; Status DC Ondansetron HCl (Zofran) 4 mg STK-MED ONCE .ROUTE ; Start 12/17/17 at 14:00; Stop 12/17/17 at 14:01; Status DC Propofol 20 ml @ As Directed STK-MED ONCE IV ; Start 12/17/17 at 14:00; Stop at 14:01; Status DC Fentanyl Citrate (Fentanyl 2ml Vial) 100 mcg STK-MED ONCE .ROUTE ; Start at 14:00; Stop 12/17/17 at 14:01; Status DC Midazolam HCl (Versed) 2 mg STK-MED ONCE .ROUTE ; Start 12/17/17 at 14:00; Stop 12/17/17 at 14:02; Status DC Phenylephrine HCl (PHENYLEPHRINE in 0.9% NACL PF) 1 mg STK-MED ONCE IV ; Start 12/17/17 at 15:01; Stop 12/17/17 at 15:02; Status DC Sevoflurane (Ultane) 30 ml STK-MED ONCE IH ; Start 12/17/17 at 15:08; Stop 12/17 at 15:09; Status DC Fentanyl Citrate (Fentanyl 2ml Vial) 100 mcg STK-MED ONCE .ROUTE ; Start at 15:41; Stop 12/17/17 at 15:42; Status DC Morphine Sulfate (Morphine Sulfate) 2 mg PRN Q4HRS PRN IV PAIN Last administered on 12/17/17at 20:06; Start 12/17/17 at 19:45 Iohexol (Omnipaque 300 Mg/ml) 75 ml 1X ONCE IT Last administered on 12/17/17at 22:00; Start 12/17/17 at 22:00; Stop 12/17/17 at 22:01; Status DC Info (CONTRAST GIVEN -- Rx MONITORING) 1 each PRN DAILY PRN MC SEE COMMENTS; Start 12/17/17 at 22:00; Stop 12/19/17 at 21:59 Enoxaparin Sodium (Lovenox 40mg Syringe) 40 mg 1X ONCE SQ ; Start 12/18/17 at 12:30; Stop 12/18/17 at 12:31 Active Scripts Active Reported Xarelto (Rivaroxaban) 20 Mg Tablet 20 Mg PO DAILY Vitals/I & O Vital Sign - Last 24 Hours 12/17/17 12/17/17 12/17/17 12/17/17 13:56 15:00 15:29 15:44 Temp 97.3 98.4 97.7 97.3 98.4 97.7 Pulse 82 90 88 82 Resp 15 16 18 18 B/P (MAP) 147/93 145/86 (105) 141/86 141/86 Pulse Ox 94 94 98 94 O2 Delivery Room Air Room Air Simple Mask Room Air O2 Flow Rate 10 12/17/17 12/17/17 12/17/17 12/17/17 15:46 15:59 16:10 16:13 Temp 98.1 98.1 Pulse 93 82 Resp 18 16 18 16 B/P (MAP) 157/97 154/99 Pulse Ox 93 95 97 94 O2 Delivery Room Air Room Air Room Air Room Air 12/17/17 12/17/17 12/17/17 12/17/17 16:40 16:52 19:00 20:00 Temp 97.5 97.5 Pulse 97 Resp 18 B/P (MAP) 131/85 (100) Pulse Ox 94 94 92 O2 Delivery Room Air Room Air Room Air Room Air O2 Flow Rate 10.0 12/17/17 12/17/17 12/17/17 12/17/17 20:06 20:36 23:00 23:24 Temp 97.9 97.9 Pulse 93 Resp 18 B/P (MAP) 136/86 (103) Pulse Ox 93 O2 Delivery Room Air Room Air Room Air Room Air 12/18/17 12/18/17 12/18/17 12/18/17 03:00 07:00 08:09 09:09 Temp 97.9 97.4 97.9 97.4 Pulse 98 87 Resp 18 16 20 20 B/P (MAP) 153/76 (101) 145/84 (104) Pulse Ox 95 95 95 95 O2 Delivery Room Air Room Air Room Air Room Air 12/18/17 11:34 Temp 97.5 97.5 Pulse 94 Resp 16 B/P (MAP) 131/87 (102) Pulse Ox 96 O2 Delivery Room Air Intake and Output 12/17/17 12/17/17 12/18/17 15:00 23:00 07:00 Intake Total 190 ml 1080 ml Output Total 2000 ml 950 ml Balance -1810 ml 130 ml LUIS CUTLER MD Dec 18, 2017 12:27
[2017-12-18] MEDS ORDERED: MAGNESIUM HYDROXIDE 2,400 MG/30 ML ORAL.SUSP. PO PRN (12:30)
[2017-12-18] MEDS ORDERED: BISACODYL 10 MG SUPP.RECT. PR PRN (12:30)
[2017-12-18] MEDS ORDERED: ENOXAPARIN 40 MG/0.4 ML SYRINGE. SQ ONE (12:30)
[2017-12-18] MEDS ORDERED: POLYETHYLENE GLYCOL 3350 17 GM PACKET. PO ONE (12:30)
[2017-12-18] MEDS ORDERED: DOCUSATE SODIUM 100 MG CAPSULE. PO PRN (12:30)
[2017-12-18] MEDS ORDERED: GADOBUTROL 10 MMOL/10 ML VIAL IV ONE (14:00)
[2017-12-18] MEDS: GABAPENTIN 300 MG CAPSULE. PO SCH ×2 (14:41→20:46)
--- NOTE | 2017-12-18 15:10 | RAD ---
MRI Cervical Spine with and without contrast History:] Arm and leg tingling, numbness Technique: Multiplanar, multi sequential pre and postcontrast MR imaging was performed of the cervical spine. Contrast: 9 cc Gadavist Comparison: None Findings: There is some motion degradation Cervical vertebral body stature is overall maintained other than some inferior plate concavity and Schmorl's node of C5. Cervical cord caliber is within normal limits without significant focal signal abnormality or enhancement allowing for artifact. There is negligible grade 1 anterior spondylolisthesis at C3-4, negligible posterior subluxation C5 relative to C6. There is more advanced degenerative disc disease C5-6 and to lesser degree C6-7. There is degenerative endplate change and minimal endplate edema at C3-5-6 and to lesser degree at C6-C7. There is no significant abnormality of the cervical medullary junction. There is small mucous retention cyst at the floor of the left maxillary sinus about 1.7 cm. C2-C3: Neural foramina and spinal canal are adequate. C3-C4: There is severe right facet degenerative change, to lesser degree on the left. Spinal canal and left neural foramen are adequate, mild narrowing of the right neural foramen. C4-C5: There is bilateral facet hypertrophic change. Spinal canal is adequate. Neural foramina are overall adequate. C5-C6: There is broad posterior disc osteophyte complex. Central canal is borderline about 10 mm, mild left lateral recess stenosis. There is bilateral facet hypertrophic change, also uncovertebral degenerative change greater on the left. There is fairly severe narrowing of the left neural foramen, probable moderate to severe narrowing on the right. C6-C7: There is minimal disc osteophyte complex. Central canal is adequate about 12 mm. There is facet degenerative change, also minimal uncovertebral degenerative change. Neural foramina are overall adequate. C7-T1: Spinal canal and neural foramina are adequate. Impression: 1. There is degenerative disc disease greatest at C5-C6 and to lesser degree at C6-7. There is also spondylosis at the same levels. There is mild left lateral recess stenosis C5-6. There is left greater than right C5-C6 neural foramina compromise due to facet and uncovertebral degenerative change. There is mild abnormal alignment, multilevel facet degenerative change. Electronically signed by: Serg Goins MD (12/18/2017 3:07 PM) [place] [id number]
[2017-12-18 15:31] VITALS: BP 133/89
[2017-12-18 15:57] LABS: BARBITURATES NEG (NEG); BENZODIAZEPINES NEG (NEG); CANNABINOIDS NEG (NEG); COCAINE NEG (NEG); METHADONE NEG (NEG); OPIATES POS (NEG); PHENCYCLIDINE NEG (NEG)
[2017-12-18 15:58] LABS: AMPHETAMINE/METHAMPHETAMINE NEG (NEG)
--- NOTE | 2017-12-18 16:50 | PDOC2 ---
NEUROLOGY CONSULT Date of Admission Date of Admission DATE: 12/18/17 TIME: 16:33 Reason for Consult Reason for Consult: IMPRESSION: Right UE and LE numbness, tingling and pain. Right side neck pain. Right lateral femoral cutaneous neuropathy? Punctuate wound and laceration in left LE. Right LE DVT, Hx. Degenerative C-spine disease. RECOMMENDATIONS/PLAN: Continue Neurontin. Brain MRI w/o contrast. Lab: see orders. Wound care. Treat medical diseases. HISTORY OF THE PRESENT ILLNESS: This is a 52 year old male admit for acute left leg wound with extensive laceration, is s/p a puncture wound to his lower left leg. He fell out of his bunk and smashed his leg to a metal chair, and tore open his left lower leg on upper anterior portion. He bled perfusely as he is on Xarelto for recent DVT. He has symptoms of numbness, paresthesia, tingling and pain in his right UE and LE associated with pain in his right side of neck. He stated he felt obvious numbness in his lateral femoral aspect. Past Medical History Cardiovascular: No pertinent hx Psych: Anxiety Rheumatologic: No pertinent hx Infectious disease: No pertinent hx ENT: No pertinent hx PAST SURGERY HISTORY: Back surgery. Knee replacement. ALLERGY: NKDA MEDICATIONS: Refer to [facility] FAMILY HISTORY: Non contributory. SOCIAL HISTORY: Currently in half-way. Denies current smoking, drinking, and illicit drug use. REVIEW OF SYSTEMS: Constitutional: No cachexia. Head: No traumatic brain or head injury. Skin: No edema, or rash. Ear: No infection. Eyes: No vision loss or color blindness. Nose: No bleeding or purulent discharges. Hearing: No hearing decrease. Neck: neck pain. Cardiac: No W[place], arrhythmia,claudication, DVT. Pulmonary: No COPD. GI: No GI ulcer, GI bleeding. Urinary/genital: No dysuria, incontinence, urinary retention. Endocrinologic: No cousin face, craniofacial dysmorphism, polydactyly. Skeletomuscular: No muscular atrophy, deformity. Neurological: see HP. Psychiatric: Denies drug use/abuse. Otherwise, not [id number] review of systems. PHYSICAL EXAMINATION: General appearance is in subacute distress. HEENT: Normocephalic and nontraumatic. Eyes, nose, ears, and throat are unremarkable. Neck is supple. No lymphadenopathy. No bruits are heard over the carotid artery. No crepitus. Cardiovascular: S1, S2, regular rate and rhythm. Pulmonary: Clear to auscultation bilaterally. Abdomen: Bowel sounds are positive. Abdomen is soft, nontender, and nondistended. Extremities: No rash, lesions, or edema. Mild restriction of range of motion in left LE due to wound. NEUROLOGICAL EXAMINATION: Alert Oriented to time, place and person. PERRL. EOMI. CN: no focal findings. Muscle tone: within normal. Muscle strength: 5- right UE, 5 the rest. DTR: 2- Plantar reflex: Flexor response bilaterally Gait: not examined in bed. Sensory exam: no abnormal findings. No cerebellar signs elicited. F-T-N test accurate. Current Medications Current Medications Current Medications Lidocaine/ Epinephrine (LIDOCAINE 1%-EPI 1:100,000 Multi-Dose) 20 ml 1X ONCE INJ Last administered on 12/15/17at 14:56; Start 12/15/17 at 11:45; Stop at 12:56; Status DC Fentanyl Citrate (Fentanyl 2ml Vial) 50 mcg 1X ONCE IV Last administered on at 13:02; Start 12/15/17 at 12:30; Stop 12/15/17 at 12:56; Status DC Gelatin (Gelfoam Size 100) 1 each STK-MED ONCE .ROUTE ; Start 12/15/17 at 13:58 ; Stop 12/15/17 at 13:59; Status DC Gelatin (Gelfoam Size 100) 1 each 1X ONCE TP Last administered on 12/15/17at 14:06; Start 12/15/17 at 14:15; Stop 12/15/17 at 14:16; Status DC Lorazepam (Ativan) 1 mg 1X ONCE PO Last administered on 12/15/17at 16:16; Start 12/15/17 at 16:00; Stop 12/15/17 at 16:01; Status DC Ondansetron HCl (Zofran) 4 mg PRN Q8HRS PRN IV NAUSEA/VOMITING; Start 12/15/17 at 16:00; Stop 12/16/17 at 15:59; Status DC Fentanyl Citrate (Fentanyl 2ml Vial) 50 mcg PRN Q2HR PRN IV PAIN Last administered on 12/17/17at 08:51; Start 12/15/17 at 16:00; Stop 12/17/17 at 15:58 ; Status DC Oxycodone/ Acetaminophen (Percocet 5/325) 1 tab PRN Q4HRS PRN PO MODERATE- SEVERE PAIN Last administered on 12/18/17at 12:30; Start 12/15/17 at 17:30 Lorazepam (Ativan) 0.5 mg PRN Q8HRS PRN PO ANXIETY / AGITATION; Start 12/15/17 at 17:30 Influenza Virus Vaccine (Afluria Trivalent [id number] Syringe) 0.5 ml ONCE ONCE VAX IM Last administered on 12/16/17at 11:20; Start 12/16/17 at 09:00; Stop at 09:01; Status DC Info (Do NOT chart on this placeholder) 1 each PRN 1X PRN MC SEE COMMENTS; Start 12/16/17 at 03:45; Status Cancel Ondansetron HCl (Zofran) 4 mg PRN Q6HRS PRN IV NAUSEA/VOMITING; Start 12/17/17 at 10:00; Stop 12/18/17 at 09:59; Status DC Fentanyl Citrate (Fentanyl 2ml Vial) 25 mcg PRN Q5MIN PRN IV MILD PAIN; Start 12/17/17 at 10:00; Stop 12/18/17 at 09:59; Status DC Fentanyl Citrate (Fentanyl 2ml Vial) 50 mcg PRN Q5MIN PRN IV MODERATE TO SEVERE PAIN Last administered on 12/17/17at 16:10; Start 12/17/17 at 10:00; Stop 12/18/17 at 09:59; Status DC Morphine Sulfate (Morphine Sulfate) 1 mg PRN Q10MIN PRN IV SEVERE PAIN; Start 12/17/17 at 10:00; Stop 12/18/17 at 09:59; Status DC Ringer's Solution 1,000 ml @ 30 mls/hr Q24H IV Last administered on 12/17/17at 09:53; Start 12/17/17 at 09:53; Stop 12/17/17 at 17:08; Status DC Lidocaine HCl (Xylocaine-Mpf 1% 2ml Vial) 2 ml 1X PRN PRN ID IV START; Start at 10:00; Stop 12/18/17 at 09:59; Status DC Hydromorphone HCl (Dilaudid) 0.5 mg PRN Q10MIN PRN IV SEV PAIN, Second choice; Start 12/17/17 at 10:00; Stop 12/18/17 at 09:59; Status DC Prochlorperazine Edisylate (Compazine) 5 mg PACU PRN PRN IV NAUSEA, MRX1; Start 12/17/17 at 10:00; Stop 12/18/17 at 09:59; Status DC Albuterol Sulfate (Ventolin Neb Soln) 2.5 mg PRN Q4HRS PRN NEB SHORTNESS OF BREATH; Start 12/17/17 at 13:00 Acetaminophen (Tylenol) 500 mg PRN Q6HRS PRN PO MILD PAIN / TEMP Last administered on 12/18/17at 14:48; Start 12/17/17 at 13:00 Dexamethasone Sodium Phosphate (Decadron) 20 mg STK-MED ONCE .ROUTE ; Start at 14:00; Stop 12/17/17 at 14:01; Status DC Famotidine (Pepcid Vial) 20 mg STK-MED ONCE .ROUTE ; Start 12/17/17 at 14:00; Stop 12/17/17 at 14:01; Status DC Ondansetron HCl (Zofran) 4 mg STK-MED ONCE .ROUTE ; Start 12/17/17 at 14:00; Stop 12/17/17 at 14:01; Status DC Propofol 20 ml @ As Directed STK-MED ONCE IV ; Start 12/17/17 at 14:00; Stop at 14:01; Status DC Fentanyl Citrate (Fentanyl 2ml Vial) 100 mcg STK-MED ONCE .ROUTE ; Start at 14:00; Stop 12/17/17 at 14:01; Status DC Midazolam HCl (Versed) 2 mg STK-MED ONCE .ROUTE ; Start 12/17/17 at 14:00; Stop 12/17/17 at 14:02; Status DC Phenylephrine HCl (PHENYLEPHRINE in 0.9% NACL PF) 1 mg STK-MED ONCE IV ; Start 12/17/17 at 15:01; Stop 12/17/17 at 15:02; Status DC Sevoflurane (Ultane) 30 ml STK-MED ONCE IH ; Start 12/17/17 at 15:08; Stop 12/17 at 15:09; Status DC Fentanyl Citrate (Fentanyl 2ml Vial) 100 mcg STK-MED ONCE .ROUTE ; Start at 15:41; Stop 12/17/17 at 15:42; Status DC Morphine Sulfate (Morphine Sulfate) 2 mg PRN Q4HRS PRN IV PAIN Last administered on 12/17/17at 20:06; Start 12/17/17 at 19:45 Iohexol (Omnipaque 300 Mg/ml) 75 ml 1X ONCE IT Last administered on 12/17/17at 22:00; Start 12/17/17 at 22:00; Stop 12/17/17 at 22:01; Status DC Info (CONTRAST GIVEN -- Rx MONITORING) 1 each PRN DAILY PRN MC SEE COMMENTS; Start 12/17/17 at 22:00; Stop 12/19/17 at 21:59 Enoxaparin Sodium (Lovenox 40mg Syringe) 40 mg 1X ONCE SQ ; Start 12/18/17 at 12:30; Stop 12/18/17 at 12:30; Status DC Docusate Sodium (Colace) 100 mg DAILY PO ; Start 12/19/17 at 09:00 Docusate Sodium (Colace) 100 mg PRN DAILY PRN PO CONSTIPATION (1st Choice); Start 12/18/17 at 12:30 Polyethylene Glycol (miraLAX PACKET) 17 gm 1X ONCE PO Last administered on at 14:41; Start 12/18/17 at 12:30; Stop 12/18/17 at 12:31; Status DC Polyethylene Glycol (miraLAX PACKET) 17 gm DAILY PO ; Start 12/19/17 at 09:00 Magnesium Hydroxide (Milk Of Magnesia) 2,400 mg PRN DAILY PRN PO CONSTIPATION ( 2nd Choice); Start 12/18/17 at 12:30 Bisacodyl (Dulcolax Supp) 10 mg PRN DAILY PRN [place] CONSTIPATION; Start 12/18/17 at 12:30 Rivaroxaban (Xarelto) 20 mg DAILYWSUP PO ; Start 12/18/17 at 17:00 Info (Anti-Coagulation Monitoring By Pharmacy) 1 each PRN DAILY PRN MC SEE COMMENTS; Start 12/18/17 at 12:45 Gabapentin (Neurontin) 300 mg TID PO Last administered on 12/18/17at 14:41; Start 12/18/17 at 14:00 Gadobutrol (Gadavist) 9 mmol 1X ONCE IV Last administered on 12/18/17at 14:19; Start 12/18/17 at 14:00; Stop 12/18/17 at 14:01; Status DC Active Scripts Active Reported Xarelto (Rivaroxaban) 20 Mg Tablet 20 Mg PO DAILY Allergies Allergies: Allergies Coded Allergies Type Severity Reaction Last Updated Verified No Known Drug Allergies 12/15/17 No ROS Review of System The patient denies any associated fevers, chills, headache, ear pain, rhinorrhea , sore throat, stiff neck, productive cough, chest pain, shortness of breath, back or flank pain, abdominal pain, nausea, vomiting, diarrhea, constipation, dysuria, rash, numbness, weakness, tingling, incontinence, difficulty ambulating, or diaphoresis. Physical Exam Physical Exam General: Well developed, well nourished, no acute distress, well appearing HEENT: Pupils equally round and reactive to light, EOMI, no discharge, normal conjunctiva Neck: Supple, no nuchal rigidity, no JVD, trachea midline, no tenderness Cardiac: RRR, no murmurs, no gallops, no rubs Chest/Lungs: CTAB, no wheeze, no rhonchi, no crackles Abdomen: soft, non-distended, no guarding, no peritoneal signs, non-tender Back: No tenderness Extremities: no edema, pulses intact, non-tender,capillary refill <3 sec bilateral upper and lower extremities, Neuro: Alert and oriented x 4, no focal deficits, normal speech Vitals Vitals: Vital Signs Date Time Temp Pulse Resp B/P (MAP) Pulse Ox O2 Delivery O2 Flow Rate FiO2 12/18/17 15:31 98.6 99 16 133/89 (104) 95 Room Air 98.6 12/17/17 16:40 10.0 Labs Labs Laboratory Tests Test 12/16/17 22:30 12/17/17 03:45 12/18/17 04:40 12/18/17 15:05 Nasal Screen MRSA (PCR) Negative (Negative) White Blood Count 6.7 x10^3/uL (4.0-11.0) 10.7 x10^3/uL (4.0-11.0) Red Blood Count 4.42 x10^6/uL (4.30-5.70) 4.58 x10^6/uL (4.30-5.70) Hemoglobin 14.1 g/dL (13.0-17.5) 14.3 g/dL (13.0-17.5) Hematocrit 40.1 % (39.0-53.0) 41.4 % (39.0-53.0) Mean Corpuscular Volume 91 fL (79-100) 90 fL (79-100) Mean Corpuscular Hemoglobin 32 pg (25-35) 31 pg (25-35) Mean Corpuscular Hemoglobin Concent 35 g/dL (31-37) 35 g/dL (31-37) Red Cell Distribution Width 14.3 % (11.5-14.5) 14.0 % (11.5-14.5) Platelet Count 181 x10^3/uL (140-400) 204 x10^3/uL (140-400) Neutrophils (%) (Auto) 63 % (31-73) 89 % (31-73) Lymphocytes (%) (Auto) 22 % (24-48) 6 % (24-48) Monocytes (%) (Auto) 9 % (0-9) 5 % (0-9) Eosinophils (%) (Auto) 6 % (0-3) 0 % (0-3) Basophils (%) (Auto) 1 % (0-3) 0 % (0-3) Neutrophils # (Auto) 4.2 x10^3uL (1.8-7.7) 9.5 x10^3uL (1.8-7.7) Lymphocytes # (Auto) 1.5 x10^3/uL (1.0-4.8) 0.7 x10^3/uL (1.0-4.8) Monocytes # (Auto) 0.6 x10^3/uL (0.0-1.1) 0.5 x10^3/uL (0.0-1.1) Eosinophils # (Auto) 0.4 x10^3/uL (0.0-0.7) 0.0 x10^3/uL (0.0-0.7) Basophils # (Auto) 0.0 x10^3/uL (0.0-0.2) 0.0 x10^3/uL (0.0-0.2) Sodium Level 141 mmol/L (136-145) 138 mmol/L (136-145) Potassium Level 4.1 mmol/L (3.5-5.1) 4.2 mmol/L (3.5-5.1) Chloride Level 106 mmol/L (98-107) 102 mmol/L (98-107) Carbon Dioxide Level 25 mmol/L (21-32) 27 mmol/L (21-32) Anion Gap 10 (6-14) 9 (6-14) Blood Urea Nitrogen 13 mg/dL (8-26) 12 mg/dL (8-26) Creatinine 1.0 mg/dL (0.7-1.3) 0.9 mg/dL (0.7-1.3) Estimated GFR (Cockcroft-Gault) 78.5 88.6 BUN/Creatinine Ratio 13 (6-20) 13 (6-20) Glucose Level 80 mg/dL (70-99) 152 mg/dL (70-99) Calcium Level 8.3 mg/dL (8.5-10.1) 9.6 mg/dL (8.5-10.1) Total Bilirubin 0.2 mg/dL (0.2-1.0) 0.3 mg/dL (0.2-1.0) Aspartate Amino Transf (AST/SGOT) 13 U/L (15-37) 13 U/L (15-37) Alanine Aminotransferase (ALT/SGPT) 26 U/L (16-63) 28 U/L (16-63) Alkaline Phosphatase 55 U/L (46-116) 60 U/L (46-116) Total Protein 6.3 g/dL (6.4-8.2) 7.1 g/dL (6.4-8.2) Albumin 3.2 g/dL (3.4-5.0) 3.4 g/dL (3.4-5.0) Albumin/Globulin Ratio 1.0 (1.0-1.7) 0.9 (1.0-1.7) Segmented Neutrophils % 82 % (35-66) Band Neutrophils % 3 % (0-9) Lymphocytes % 9 % (24-48) Atypical Lymphocytes % (Manual) 1 % (0-0) Monocytes % 5 % (0-10) Platelet Estimate Adequate (ADEQUATE) Urine Opiates Screen Pos (NEG) Urine Methadone Screen Neg (NEG) Urine Barbiturates Neg (NEG) Urine Phencyclidine Screen Neg (NEG) Urine Amphetamine/Methamphetamine Neg (NEG) Urine Benzodiazepines Screen Neg (NEG) Urine Cocaine Screen Neg (NEG) Urine Cannabinoids Screen Neg (NEG) Urine Ethyl Alcohol Neg (NEG) Laboratory Tests Test 12/18/17 04:40 12/18/17 15:05 White Blood Count 10.7 x10^3/uL (4.0-11.0) Red Blood Count 4.58 x10^6/uL (4.30-5.70) Hemoglobin 14.3 g/dL (13.0-17.5) Hematocrit 41.4 % (39.0-53.0) Mean Corpuscular Volume 90 fL (79-100) Mean Corpuscular Hemoglobin 31 pg (25-35) Mean Corpuscular Hemoglobin Concent 35 g/dL (31-37) Red Cell Distribution Width 14.0 % (11.5-14.5) Platelet Count 204 x10^3/uL (140-400) Neutrophils (%) (Auto) 89 % (31-73) Lymphocytes (%) (Auto) 6 % (24-48) Monocytes (%) (Auto) 5 % (0-9) Eosinophils (%) (Auto) 0 % (0-3) Basophils (%) (Auto) 0 % (0-3) Neutrophils # (Auto) 9.5 x10^3uL (1.8-7.7) Lymphocytes # (Auto) 0.7 x10^3/uL (1.0-4.8) Monocytes # (Auto) 0.5 x10^3/uL (0.0-1.1) Eosinophils # (Auto) 0.0 x10^3/uL (0.0-0.7) Basophils # (Auto) 0.0 x10^3/uL (0.0-0.2) Segmented Neutrophils % 82 % (35-66) Band Neutrophils % 3 % (0-9) Lymphocytes % 9 % (24-48) Atypical Lymphocytes % (Manual) 1 % (0-0) Monocytes % 5 % (0-10) Platelet Estimate Adequate (ADEQUATE) Sodium Level 138 mmol/L (136-145) Potassium Level 4.2 mmol/L (3.5-5.1) Chloride Level 102 mmol/L (98-107) Carbon Dioxide Level 27 mmol/L (21-32) Anion Gap 9 (6-14) Blood Urea Nitrogen 12 mg/dL (8-26) Creatinine 0.9 mg/dL (0.7-1.3) Estimated GFR (Cockcroft-Gault) 88.6 BUN/Creatinine Ratio 13 (6-20) Glucose Level 152 mg/dL (70-99) Calcium Level 9.6 mg/dL (8.5-10.1) Total Bilirubin 0.3 mg/dL (0.2-1.0) Aspartate Amino Transf (AST/SGOT) 13 U/L (15-37) Alanine Aminotransferase (ALT/SGPT) 28 U/L (16-63) Alkaline Phosphatase 60 U/L (46-116) Total Protein 7.1 g/dL (6.4-8.2) Albumin 3.4 g/dL (3.4-5.0) Albumin/Globulin Ratio 0.9 (1.0-1.7) Urine Opiates Screen Pos (NEG) Urine Methadone Screen Neg (NEG) Urine Barbiturates Neg (NEG) Urine Phencyclidine Screen Neg (NEG) Urine Amphetamine/Methamphetamine Neg (NEG) Urine Benzodiazepines Screen Neg (NEG) Urine Cocaine Screen Neg (NEG) Urine Cannabinoids Screen Neg (NEG) Urine Ethyl Alcohol Neg (NEG) DAPHNE MARIE MD Dec 18, 2017 16:50
[2017-12-18] MEDS: RIVAROXABAN 10 MG TABLET. PO SCH (17:30)
[2017-12-18 19:00] VITALS: BP 131/75
[2017-12-18 23:00] VITALS: BP 162/85
[2017-12-19 03:00] VITALS: BP 143/87
[2017-12-19 07:00] VITALS: BP 140/89
[2017-12-19] MEDS: GABAPENTIN 300 MG CAPSULE. PO SCH ×2 (08:30→14:54)
[2017-12-19] MEDS: POLYETHYLENE GLYCOL 3350 17 GM PACKET. PO SCH (08:30)
[2017-12-19] MEDS: DOCUSATE SODIUM 100 MG CAPSULE. PO SCH (08:30)
[2017-12-19] MEDS: oxyCODONE/APAP 5/325 1 TAB TABLET PO PRN ×2 (08:35→19:09)
[2017-12-19 11:53] VITALS: BP 133/83
--- NOTE | 2017-12-19 12:00 | RAD ---
MRI Brain without contrast History: Right-sided paresthesia and pain Technique: Multiplanar, multisequential noncontrast MR imaging was performed of the brain. Contrast: None Comparison: None Findings: There is motion degradation. There is no evidence of recent infarct or cytotoxic edema. The ventricles, sulci, and cisterns are within normal limits in size and configuration. There is no significant midline shift, intraaxial mass effect, or focal abnormal extra-axial fluid collection. There is very minimal T2 and FLAIR hyperintense signal such as near the occipital and frontal horns, degree which can be seen in asymptomatic individuals. There is also probable tiny focus of the left frontal deep white matter. There is no significant hemosiderin deposition of the brain parenchyma. There is preservation of the major intracranial flow-voids at the skull base. The mastoid air cells are aerated. The cerebellar tonsils are normal in location. There is no significant abnormality of the pineal gland or pituitary gland. There is patchy fdtp-ha-scjhrlll ethmoid air cell mucosal thickening, mild left maxillary sinus mucosal thickening and left maxillary sinus mucous retention cyst about 1.3 cm. There is preserved marrow signal of the clivus. Impression: 1. There is no evidence of recent infarct or intracranial mass effect. There is very minimal T2 and FLAIR hyperintense signal of the periventricular white matter, degree of which can be seen in asymptomatic individuals, also likely tiny focus of nonspecific gliosis of the left frontal deep white matter. 2. There is patchy vsao-yq-ipygohaz ethmoid air cell mucosal thickening bilaterally. Electronically signed by: Serg Goins MD (12/19/2017 11:56 AM) [facility]
--- NOTE | 2017-12-19 14:33 | PDOC ---
PROGRESS NOTES Assessment Assessment Right UE and LE numbness, tingling and pain. Right side neck pain. Right lateral femoral cutaneous neuropathy? Punctuate wound and laceration in left LE. Right LE DVT, Hx. Degenerative C-spine disease. No evidence of acute CVA this time. RECOMMENDATIONS/PLAN: Continue Neurontin, increase to 400 mg tid. Wound care, left LE.. Treat medical diseases. HISTORY OF THE PRESENT ILLNESS: This is a 52 year old male admit for acute left leg wound with extensive laceration, is s/p a puncture wound to his lower left leg. He fell out of his bunk and smashed his leg to a metal chair, and tore open his left lower leg on upper anterior portion. He bled perfuselly as he is on Xarelto for recent DVT. He has symptoms of numbness, paresthesia, tingling and pain in his right UE and LE at right lateral femoral aspect associated with pain in his right side of neck. He stated he felt obvious numbness in his lateral femoral aspect. Past Medical History Cardiovascular: No pertinent hx Psych: Anxiety Rheumatologic: No pertinent hx Infectious disease: No pertinent hx ENT: No pertinent hx PAST SURGERY HISTORY: Back surgery. Knee replacement. ALLERGY: NKDA MEDICATIONS: Refer to [facility] FAMILY HISTORY: Non contributory. SOCIAL HISTORY: Currently in half-way. Denies current smoking, drinking, and illicit drug use. REVIEW OF SYSTEMS: Constitutional: No cachexia. Head: No traumatic brain or head injury. Skin: No edema, or rash. Ear: No infection. Eyes: No vision loss or color blindness. Nose: No bleeding or purulent discharges. Hearing: No hearing decrease. Neck: neck pain. Cardiac: No GA, arrhythmia,claudication, DVT. Pulmonary: No COPD. GI: No GI ulcer, GI bleeding. Urinary/genital: No dysuria, incontinence, urinary retention. Endocrinologic: No cousin face, craniofacial dysmorphism, polydactyly. Skeletomuscular: No muscular atrophy, deformity. Neurological: see HP. Psychiatric: Denies drug use/abuse. Otherwise, not [id number] review of systems. PHYSICAL EXAMINATION: General appearance is in subacute distress. HEENT: Normocephalic and nontraumatic. Eyes, nose, ears, and throat are unremarkable. Neck is supple. No lymphadenopathy. No bruits are heard over the carotid artery. No crepitus. Cardiovascular: S1, S2, regular rate and rhythm. Pulmonary: Clear to auscultation bilaterally. Abdomen: Bowel sounds are positive. Abdomen is soft, nontender, and nondistended. Extremities: No rash, lesions, or edema. Mild restriction of range of motion in left LE due to wound. NEUROLOGICAL EXAMINATION: Alert Oriented to time, place and person. PERRL. EOMI. CN: no focal findings. Muscle tone: within normal. Muscle strength: 5. DTR: 2- Plantar reflex: Flexor response bilaterally Gait: not examined in bed. Sensory exam: no abnormal findings. No cerebellar signs elicited. F-T-N test accurate. Objective Objective Vital Signs Date Time Temp Pulse Resp B/P (MAP) Pulse Ox O2 Delivery O2 Flow Rate FiO2 12/19/17 11:53 97.7 83 16 133/83 (100) 94 Room Air 97.7 Intake and Output 12/19/17 07:00 Intake Total 580 ml Output Total 2000 ml Balance -1420 ml Intake Oral 580 ml Output Urine Total 2000 ml # Voids 1 Vitals Signs Vitals VS - Last 72 Hours, by Label Date Time Temp Pulse Resp B/P (MAP) Pulse Ox O2 Delivery O2 Flow Rate FiO2 12/19/17 11:53 97.7 83 16 133/83 (100) 94 Room Air 97.7 12/19/17 09:35 20 94 Room Air 12/19/17 08:35 20 94 Room Air 12/19/17 07:00 97.7 78 16 140/89 (106) 95 Room Air 97.7 12/19/17 03:00 97.9 81 18 143/87 (105) 94 Room Air 97.9 12/18/17 23:00 97.9 95 18 162/85 (110) 94 Room Air 97.9 12/18/17 19:24 16 95 Room Air 12/18/17 19:05 Room Air 12/18/17 19:00 98.1 99 18 131/75 (93) 94 Room Air 98.1 12/18/17 15:31 98.6 99 16 133/89 (104) 95 Room Air 98.6 12/18/17 12:30 20 96 Room Air 12/18/17 11:34 97.5 94 16 131/87 (102) 96 Room Air 97.5 9/22/18 08:09 20 95 Room Air 12/18/17 08:00 Room Air 12/18/17 07:00 97.4 87 16 145/84 (104) 95 Room Air 97.4 Laboratory Laboratory Laboratory Tests Test 12/18/17 15:05 12/19/17 03:55 12/19/17 04:00 Urine Opiates Screen Pos (NEG) Urine Methadone Screen Neg (NEG) Urine Barbiturates Neg (NEG) Urine Phencyclidine Screen Neg (NEG) Urine Amphetamine/Methamphetamine Neg (NEG) Urine Benzodiazepines Screen Neg (NEG) Urine Cocaine Screen Neg (NEG) Urine Cannabinoids Screen Neg (NEG) Urine Ethyl Alcohol Neg (NEG) Erythrocyte Sedimentation Rate 12 (0-15) Thyroid Stimulating Hormone (TSH) 1.331 uIU/mL (0.358-3.74) Microbiology 12/17/17 Anaerobic/Aerobic Culture, Resulted Pending 12/17/17 Anaerobic Culture Result 1 (BO), Resulted Pending 12/17/17 Aerobic Culture, Resulted Pending 12/17/17 Aerobic Culture Result 1 (BO), Resulted Pending 12/17/17 Gram Stain - Final, Resulted 12/17/17 Gram Stain Result 1 (BO) - Final, Resulted 12/17/17 Gram Stain Result 2 (BO) - Final, Resulted Medication Medications Current Medications Docusate Sodium (Colace) 100 mg DAILY PO Last administered on 12/19/17at 08:30; Start 12/19/17 at 09:00 Polyethylene Glycol (miraLAX PACKET) 17 gm DAILY PO Last administered on at 08:30; Start 12/19/17 at 09:00 Rivaroxaban (Xarelto) 20 mg DAILYWSUP PO Last administered on 12/18/17at 17:30; Start 12/18/17 at 17:00 Comment Review of Relevant I have reviewed the following items jono (where applicable) has been applied. DAPHNE MARIE MD Dec 19, 2017 14:33
[2017-12-19 15:27] VITALS: BP 144/83
[2017-12-19] MEDS: RIVAROXABAN 10 MG TABLET. PO SCH (17:17)
[2017-12-19 19:00] VITALS: BP 164/92
[2017-12-19] MEDS: GABAPENTIN 400 MG CAPSULE. PO SCH (20:33)
[2017-12-19 22:55] VITALS: BP 131/83
--- NOTE | 2017-12-20 01:01 | PDOC ---
PROGRESS NOTES Subjective Subjective Problems overnight: Left leg is sore tonight but overall much better since the hematoma was evacuated during surgery Objective Vital Signs Vital Signs Date Time Temp Pulse Resp B/P (MAP) Pulse Ox O2 Delivery O2 Flow Rate FiO2 12/19/17 22:55 97.9 94 18 131/83 (99) 93 Room Air 97.9 12/17/17 16:40 10.0 Physical Exam Incision appears to be healing well with some minimal bloody drainage overlying skin is overall viable with the most at risk area at the distal the portion of the laceration on the left leg Labs Laboratory Tests Test 12/18/17 04:40 12/18/17 15:05 12/19/17 03:55 12/19/17 04:00 White Blood Count 10.7 x10^3/uL (4.0-11.0) Red Blood Count 4.58 x10^6/uL (4.30-5.70) Hemoglobin 14.3 g/dL (13.0-17.5) Hematocrit 41.4 % (39.0-53.0) Mean Corpuscular Volume 90 fL (79-100) Mean Corpuscular Hemoglobin 31 pg (25-35) Mean Corpuscular Hemoglobin Concent 35 g/dL (31-37) Red Cell Distribution Width 14.0 % (11.5-14.5) Platelet Count 204 x10^3/uL (140-400) Neutrophils (%) (Auto) 89 % (31-73) Lymphocytes (%) (Auto) 6 % (24-48) Monocytes (%) (Auto) 5 % (0-9) Eosinophils (%) (Auto) 0 % (0-3) Basophils (%) (Auto) 0 % (0-3) Neutrophils # (Auto) 9.5 x10^3uL (1.8-7.7) Lymphocytes # (Auto) 0.7 x10^3/uL (1.0-4.8) Monocytes # (Auto) 0.5 x10^3/uL (0.0-1.1) Eosinophils # (Auto) 0.0 x10^3/uL (0.0-0.7) Basophils # (Auto) 0.0 x10^3/uL (0.0-0.2) Segmented Neutrophils % 82 % (35-66) Band Neutrophils % 3 % (0-9) Lymphocytes % 9 % (24-48) Atypical Lymphocytes % (Manual) 1 % (0-0) Monocytes % 5 % (0-10) Platelet Estimate Adequate (ADEQUATE) Sodium Level 138 mmol/L (136-145) Potassium Level 4.2 mmol/L (3.5-5.1) Chloride Level 102 mmol/L (98-107) Carbon Dioxide Level 27 mmol/L (21-32) Anion Gap 9 (6-14) Blood Urea Nitrogen 12 mg/dL (8-26) Creatinine 0.9 mg/dL (0.7-1.3) Estimated GFR (Cockcroft-Gault) 88.6 BUN/Creatinine Ratio 13 (6-20) Glucose Level 152 mg/dL (70-99) Calcium Level 9.6 mg/dL (8.5-10.1) Total Bilirubin 0.3 mg/dL (0.2-1.0) Aspartate Amino Transf (AST/SGOT) 13 U/L (15-37) Alanine Aminotransferase (ALT/SGPT) 28 U/L (16-63) Alkaline Phosphatase 60 U/L (46-116) Total Protein 7.1 g/dL (6.4-8.2) Albumin 3.4 g/dL (3.4-5.0) Albumin/Globulin Ratio 0.9 (1.0-1.7) Urine Opiates Screen Pos (NEG) Urine Methadone Screen Neg (NEG) Urine Barbiturates Neg (NEG) Urine Phencyclidine Screen Neg (NEG) Urine Amphetamine/Methamphetamine Neg (NEG) Urine Benzodiazepines Screen Neg (NEG) Urine Cocaine Screen Neg (NEG) Urine Cannabinoids Screen Neg (NEG) Urine Ethyl Alcohol Neg (NEG) Erythrocyte Sedimentation Rate 12 (0-15) Thyroid Stimulating Hormone (TSH) 1.331 uIU/mL (0.358-3.74) Laboratory Tests Test 12/19/17 03:55 12/19/17 04:00 Erythrocyte Sedimentation Rate 12 (0-15) Thyroid Stimulating Hormone (TSH) 1.331 uIU/mL (0.358-3.74) Assessment Assessment POD# [], S/P [irrigation debridement left leg with evacuation hematoma] Plan Plan of Care Cultures pending, no gross evidence of deep infection only hematoma Routine wound care, antibiotics pending culture results Weightbearing as tolerated activity as tolerated LISA BRUMFIELD MD Dec 20, 2017 01:00
[2017-12-20 03:00] VITALS: BP 138/86
[2017-12-20 05:29] LABS: BASO # 0.1 x10^3/uL (0.0-0.2); BASO % 1 % (0-3); EOS # 0.5 x10^3/uL (0.0-0.7); EOS % 6 % (0-3); HEMATOCRIT 41.6 % (39.0-53.0); HEMOGLOBIN 14.5 g/dL (13.0-17.5); LYMPH # 1.5 x10^3/uL (1.0-4.8); LYMPH % 18 % (24-48); MEAN CORPUSCULAR HEMOGLOBIN 32 pg (25-35); MEAN CORPUSCULAR HGB CONC 35 g/dL (31-37); MEAN CORPUSCULAR VOLUME 91 fL (79-100); MONO # 0.7 x10^3/uL (0.0-1.1); MONO % 9 % (0-9); NEUT # 5.8 x10^3uL (1.8-7.7); NEUT % 67 % (31-73); PLATELET COUNT 231 x10^3/uL (140-400); RED BLOOD COUNT 4.58 x10^6/uL (4.30-5.70); RED CELL DISTRIBUTION WIDTH 14.6 % (11.5-14.5); WHITE BLOOD COUNT 8.6 x10^3/uL (4.0-11.0)
[2017-12-20 05:46] LABS: ALBUMIN 3.2 g/dL (3.4-5.0); ALBUMIN/GLOBULIN RATIO 0.9 (1.0-1.7); CALCIUM 9.3 mg/dL (8.5-10.1); TOTAL PROTEIN 6.7 g/dL (6.4-8.2)
[2017-12-20 05:47] LABS: GFR 78.5; POTASSIUM 4.2 mmol/L (3.5-5.1); TOTAL BILIRUBIN 0.3 mg/dL (0.2-1.0)
[2017-12-20 07:00] VITALS: BP 138/95
[2017-12-20] MEDS: oxyCODONE/APAP 5/325 1 TAB TABLET PO PRN ×4 (07:08→23:05)
[2017-12-20] MEDS: GABAPENTIN 400 MG CAPSULE. PO SCH ×3 (08:50→20:52)
[2017-12-20] MEDS: DOCUSATE SODIUM 100 MG CAPSULE. PO SCH (08:51)
[2017-12-20] MEDS: POLYETHYLENE GLYCOL 3350 17 GM PACKET. PO SCH (08:51)
[2017-12-20 11:00] VITALS: BP 142/78
--- NOTE | 2017-12-20 11:59 | PDOC ---
PROGRESS NOTES Chief Complaint Chief Complaint blunt injury to soft tissue anterior LLE leg laceration, with marked blood loss s/p deep sutures on xarelto for contralateral leg DVT incarcerated anxiety d/o, right arm and leg weakness with parathesia, allodynia and tingling pain, BEGINNING AMBULATION [facility] History of Present Illness History of Present Illness s/p surg Dr. 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 Figueroa, probable Meralgia paresthetica Vitals Vitals Vital Signs Date Time Temp Pulse Resp B/P (MAP) Pulse Ox O2 Delivery O2 Flow Rate FiO2 12/20/17 08:53 Room Air 12/20/17 07:08 16 94 12/20/17 07:00 97.9 83 138/95 (109) 97.9 Physical Exam General: Alert, Oriented X3, Cooperative, No acute distress Heart: Regular rate, Normal S1, Normal S2 Lungs: Clear Abdomen: Normal bowel sounds, Soft Extremities: No cyanosis, Other (LLE with some edema, pulses present, skin edges in wound) Skin: No rashes, No significant lesion, Other (laceration dressed) Labs LABS Laboratory Tests Test 12/20/17 04:50 White Blood Count 8.6 x10^3/uL (4.0-11.0) Red Blood Count 4.58 x10^6/uL (4.30-5.70) Hemoglobin 14.5 g/dL (13.0-17.5) Hematocrit 41.6 % (39.0-53.0) Mean Corpuscular Volume 91 fL (79-100) Mean Corpuscular Hemoglobin 32 pg (25-35) Mean Corpuscular Hemoglobin Concent 35 g/dL (31-37) Red Cell Distribution Width 14.6 % (11.5-14.5) Platelet Count 231 x10^3/uL (140-400) Neutrophils (%) (Auto) 67 % (31-73) Lymphocytes (%) (Auto) 18 % (24-48) Monocytes (%) (Auto) 9 % (0-9) Eosinophils (%) (Auto) 6 % (0-3) Basophils (%) (Auto) 1 % (0-3) Neutrophils # (Auto) 5.8 x10^3uL (1.8-7.7) Lymphocytes # (Auto) 1.5 x10^3/uL (1.0-4.8) Monocytes # (Auto) 0.7 x10^3/uL (0.0-1.1) Eosinophils # (Auto) 0.5 x10^3/uL (0.0-0.7) Basophils # (Auto) 0.1 x10^3/uL (0.0-0.2) Sodium Level 140 mmol/L (136-145) Potassium Level 4.2 mmol/L (3.5-5.1) Chloride Level 103 mmol/L (98-107) Carbon Dioxide Level 31 mmol/L (21-32) Anion Gap 6 (6-14) Blood Urea Nitrogen 14 mg/dL (8-26) Creatinine 1.0 mg/dL (0.7-1.3) Estimated GFR (Cockcroft-Gault) 78.5 BUN/Creatinine Ratio 14 (6-20) Glucose Level 94 mg/dL (70-99) Calcium Level 9.3 mg/dL (8.5-10.1) Total Bilirubin 0.3 mg/dL (0.2-1.0) Aspartate Amino Transf (AST/SGOT) 11 U/L (15-37) Alanine Aminotransferase (ALT/SGPT) 29 U/L (16-63) Alkaline Phosphatase 79 U/L (46-116) Total Protein 6.7 g/dL (6.4-8.2) Albumin 3.2 g/dL (3.4-5.0) Albumin/Globulin Ratio 0.9 (1.0-1.7) Assessment and Plan Assessmemt and Plan Problems Medical Problems: (1) Contusion of left lower leg, initial encounter Status: Acute (2) Laceration of left lower leg without foreign body Status: Acute Comment Review of Relevant I have reviewed the following items jono (where applicable) has been applied. Labs Laboratory Tests Test 12/18/17 15:05 12/19/17 03:55 12/19/17 04:00 12/20/17 04:50 Urine Opiates Screen Pos (NEG) Urine Methadone Screen Neg (NEG) Urine Barbiturates Neg (NEG) Urine Phencyclidine Screen Neg (NEG) Urine Amphetamine/Methamphetamine Neg (NEG) Urine Benzodiazepines Screen Neg (NEG) Urine Cocaine Screen Neg (NEG) Urine Cannabinoids Screen Neg (NEG) Urine Ethyl Alcohol Neg (NEG) Erythrocyte Sedimentation Rate 12 (0-15) Vitamin B12 Level 350 pg/mL (247-911) Thyroid Stimulating Hormone (TSH) 1.331 uIU/mL (0.358-3.74) White Blood Count 8.6 x10^3/uL (4.0-11.0) Red Blood Count 4.58 x10^6/uL (4.30-5.70) Hemoglobin 14.5 g/dL (13.0-17.5) Hematocrit 41.6 % (39.0-53.0) Mean Corpuscular Volume 91 fL (79-100) Mean Corpuscular Hemoglobin 32 pg (25-35) Mean Corpuscular Hemoglobin Concent 35 g/dL (31-37) Red Cell Distribution Width 14.6 % (11.5-14.5) Platelet Count 231 x10^3/uL (140-400) Neutrophils (%) (Auto) 67 % (31-73) Lymphocytes (%) (Auto) 18 % (24-48) Monocytes (%) (Auto) 9 % (0-9) Eosinophils (%) (Auto) 6 % (0-3) Basophils (%) (Auto) 1 % (0-3) Neutrophils # (Auto) 5.8 x10^3uL (1.8-7.7) Lymphocytes # (Auto) 1.5 x10^3/uL (1.0-4.8) Monocytes # (Auto) 0.7 x10^3/uL (0.0-1.1) Eosinophils # (Auto) 0.5 x10^3/uL (0.0-0.7) Basophils # (Auto) 0.1 x10^3/uL (0.0-0.2) Sodium Level 140 mmol/L (136-145) Potassium Level 4.2 mmol/L (3.5-5.1) Chloride Level 103 mmol/L (98-107) Carbon Dioxide Level 31 mmol/L (21-32) Anion Gap 6 (6-14) Blood Urea Nitrogen 14 mg/dL (8-26) Creatinine 1.0 mg/dL (0.7-1.3) Estimated GFR (Cockcroft-Gault) 78.5 BUN/Creatinine Ratio 14 (6-20) Glucose Level 94 mg/dL (70-99) Calcium Level 9.3 mg/dL (8.5-10.1) Total Bilirubin 0.3 mg/dL (0.2-1.0) Aspartate Amino Transf (AST/SGOT) 11 U/L (15-37) Alanine Aminotransferase (ALT/SGPT) 29 U/L (16-63) Alkaline Phosphatase 79 U/L (46-116) Total Protein 6.7 g/dL (6.4-8.2) Albumin 3.2 g/dL (3.4-5.0) Albumin/Globulin Ratio 0.9 (1.0-1.7) Laboratory Tests Test 12/20/17 04:50 White Blood Count 8.6 x10^3/uL (4.0-11.0) Red Blood Count 4.58 x10^6/uL (4.30-5.70) Hemoglobin 14.5 g/dL (13.0-17.5) Hematocrit 41.6 % (39.0-53.0) Mean Corpuscular Volume 91 fL (79-100) Mean Corpuscular Hemoglobin 32 pg (25-35) Mean Corpuscular Hemoglobin Concent 35 g/dL (31-37) Red Cell Distribution Width 14.6 % (11.5-14.5) Platelet Count 231 x10^3/uL (140-400) Neutrophils (%) (Auto) 67 % (31-73) Lymphocytes (%) (Auto) 18 % (24-48) Monocytes (%) (Auto) 9 % (0-9) Eosinophils (%) (Auto) 6 % (0-3) Basophils (%) (Auto) 1 % (0-3) Neutrophils # (Auto) 5.8 x10^3uL (1.8-7.7) Lymphocytes # (Auto) 1.5 x10^3/uL (1.0-4.8) Monocytes # (Auto) 0.7 x10^3/uL (0.0-1.1) Eosinophils # (Auto) 0.5 x10^3/uL (0.0-0.7) Basophils # (Auto) 0.1 x10^3/uL (0.0-0.2) Sodium Level 140 mmol/L (136-145) Potassium Level 4.2 mmol/L (3.5-5.1) Chloride Level 103 mmol/L (98-107) Carbon Dioxide Level 31 mmol/L (21-32) Anion Gap 6 (6-14) Blood Urea Nitrogen 14 mg/dL (8-26) Creatinine 1.0 mg/dL (0.7-1.3) Estimated GFR (Cockcroft-Gault) 78.5 BUN/Creatinine Ratio 14 (6-20) Glucose Level 94 mg/dL (70-99) Calcium Level 9.3 mg/dL (8.5-10.1) Total Bilirubin 0.3 mg/dL (0.2-1.0) Aspartate Amino Transf (AST/SGOT) 11 U/L (15-37) Alanine Aminotransferase (ALT/SGPT) 29 U/L (16-63) Alkaline Phosphatase 79 U/L (46-116) Total Protein 6.7 g/dL (6.4-8.2) Albumin 3.2 g/dL (3.4-5.0) Albumin/Globulin Ratio 0.9 (1.0-1.7) Microbiology 12/17/17 Anaerobic/Aerobic Culture, Resulted Pending 12/17/17 Anaerobic Culture Result 1 (BO), Resulted Pending 12/17/17 Aerobic Culture - Preliminary, Resulted 12/17/17 Aerobic Culture Result 1 (BO) - Preliminary, Resulted 12/17/17 Gram Stain - Final, Resulted 12/17/17 Gram Stain Result 1 (BO) - Final, Resulted 12/17/17 Gram Stain Result 2 (BO) - Final, Resulted Medications Current Medications Lidocaine/ Epinephrine (LIDOCAINE 1%-EPI 1:100,000 Multi-Dose) 20 ml 1X ONCE INJ Last administered on 12/15/17at 14:56; Start 12/15/17 at 11:45; Stop at 12:56; Status DC Fentanyl Citrate (Fentanyl 2ml Vial) 50 mcg 1X ONCE IV Last administered on at 13:02; Start 12/15/17 at 12:30; Stop 12/15/17 at 12:56; Status DC Gelatin (Gelfoam Size 100) 1 each STK-MED ONCE .ROUTE ; Start 12/15/17 at 13:58 ; Stop 12/15/17 at 13:59; Status DC Gelatin (Gelfoam Size 100) 1 each 1X ONCE TP Last administered on 12/15/17at 14:06; Start 12/15/17 at 14:15; Stop 12/15/17 at 14:16; Status DC Lorazepam (Ativan) 1 mg 1X ONCE PO Last administered on 12/15/17at 16:16; Start 12/15/17 at 16:00; Stop 12/15/17 at 16:01; Status DC Ondansetron HCl (Zofran) 4 mg PRN Q8HRS PRN IV NAUSEA/VOMITING; Start 12/15/17 at 16:00; Stop 12/16/17 at 15:59; Status DC Fentanyl Citrate (Fentanyl 2ml Vial) 50 mcg PRN Q2HR PRN IV PAIN Last administered on 12/17/17at 08:51; Start 12/15/17 at 16:00; Stop 12/17/17 at 15:58 ; Status DC Oxycodone/ Acetaminophen (Percocet 5/325) 1 tab PRN Q4HRS PRN PO MODERATE- SEVERE PAIN Last administered on 12/20/17at 07:08; Start 12/15/17 at 17:30 Lorazepam (Ativan) 0.5 mg PRN Q8HRS PRN PO ANXIETY / AGITATION; Start 12/15/17 at 17:30 Influenza Virus Vaccine (Afluria Trivalent [id number] Syringe) 0.5 ml ONCE ONCE VAX IM Last administered on 12/16/17at 11:20; Start 12/16/17 at 09:00; Stop at 09:01; Status DC Info (Do NOT chart on this placeholder) 1 each PRN 1X PRN MC SEE COMMENTS; Start 12/16/17 at 03:45; Status Cancel Ondansetron HCl (Zofran) 4 mg PRN Q6HRS PRN IV NAUSEA/VOMITING; Start 12/17/17 at 10:00; Stop 12/18/17 at 09:59; Status DC Fentanyl Citrate (Fentanyl 2ml Vial) 25 mcg PRN Q5MIN PRN IV MILD PAIN; Start 12/17/17 at 10:00; Stop 12/18/17 at 09:59; Status DC Fentanyl Citrate (Fentanyl 2ml Vial) 50 mcg PRN Q5MIN PRN IV MODERATE TO SEVERE PAIN Last administered on 12/17/17at 16:10; Start 12/17/17 at 10:00; Stop 12/18/17 at 09:59; Status DC Morphine Sulfate (Morphine Sulfate) 1 mg PRN Q10MIN PRN IV SEVERE PAIN; Start 12/17/17 at 10:00; Stop 12/18/17 at 09:59; Status DC Ringer's Solution 1,000 ml @ 30 mls/hr Q24H IV Last administered on 12/17/17at 09:53; Start 12/17/17 at 09:53; Stop 12/17/17 at 17:08; Status DC Lidocaine HCl (Xylocaine-Mpf 1% 2ml Vial) 2 ml 1X PRN PRN ID IV START; Start at 10:00; Stop 12/18/17 at 09:59; Status DC Hydromorphone HCl (Dilaudid) 0.5 mg PRN Q10MIN PRN IV SEV PAIN, Second choice; Start 12/17/17 at 10:00; Stop 12/18/17 at 09:59; Status DC Prochlorperazine Edisylate (Compazine) 5 mg PACU PRN PRN IV NAUSEA, MRX1; Start 12/17/17 at 10:00; Stop 12/18/17 at 09:59; Status DC Albuterol Sulfate (Ventolin Neb Soln) 2.5 mg PRN Q4HRS PRN NEB SHORTNESS OF BREATH; Start 12/17/17 at 13:00 Acetaminophen (Tylenol) 500 mg PRN Q6HRS PRN PO MILD PAIN / TEMP Last administered on 12/18/17at 14:48; Start 12/17/17 at 13:00 Dexamethasone Sodium Phosphate (Decadron) 20 mg STK-MED ONCE .ROUTE ; Start at 14:00; Stop 12/17/17 at 14:01; Status DC Famotidine (Pepcid Vial) 20 mg STK-MED ONCE .ROUTE ; Start 12/17/17 at 14:00; Stop 12/17/17 at 14:01; Status DC Ondansetron HCl (Zofran) 4 mg STK-MED ONCE .ROUTE ; Start 12/17/17 at 14:00; Stop 12/17/17 at 14:01; Status DC Propofol 20 ml @ As Directed STK-MED ONCE IV ; Start 12/17/17 at 14:00; Stop at 14:01; Status DC Fentanyl Citrate (Fentanyl 2ml Vial) 100 mcg STK-MED ONCE .ROUTE ; Start at 14:00; Stop 12/17/17 at 14:01; Status DC Midazolam HCl (Versed) 2 mg STK-MED ONCE .ROUTE ; Start 12/17/17 at 14:00; Stop 12/17/17 at 14:02; Status DC Phenylephrine HCl (PHENYLEPHRINE in 0.9% NACL PF) 1 mg STK-MED ONCE IV ; Start 12/17/17 at 15:01; Stop 12/17/17 at 15:02; Status DC Sevoflurane (Ultane) 30 ml STK-MED ONCE IH ; Start 12/17/17 at 15:08; Stop 12/17 at 15:09; Status DC Fentanyl Citrate (Fentanyl 2ml Vial) 100 mcg STK-MED ONCE .ROUTE ; Start at 15:41; Stop 12/17/17 at 15:42; Status DC Morphine Sulfate (Morphine Sulfate) 2 mg PRN Q4HRS PRN IV PAIN Last administered on 12/17/17at 20:06; Start 12/17/17 at 19:45 Iohexol (Omnipaque 300 Mg/ml) 75 ml 1X ONCE IT Last administered on 12/17/17at 22:00; Start 12/17/17 at 22:00; Stop 12/17/17 at 22:01; Status DC Info (CONTRAST GIVEN -- Rx MONITORING) 1 each PRN DAILY PRN MC SEE COMMENTS; Start 12/17/17 at 22:00; Stop 12/19/17 at 21:59; Status DC Enoxaparin Sodium (Lovenox 40mg Syringe) 40 mg 1X ONCE SQ ; Start 12/18/17 at 12:30; Stop 12/18/17 at 12:30; Status DC Docusate Sodium (Colace) 100 mg DAILY PO Last administered on 12/20/17at 08:51; Start 12/19/17 at 09:00 Docusate Sodium (Colace) 100 mg PRN DAILY PRN PO CONSTIPATION (1st Choice); Start 12/18/17 at 12:30 Polyethylene Glycol (miraLAX PACKET) 17 gm 1X ONCE PO Last administered on at 14:41; Start 12/18/17 at 12:30; Stop 12/18/17 at 12:31; Status DC Polyethylene Glycol (miraLAX PACKET) 17 gm DAILY PO Last administered on at 08:51; Start 12/19/17 at 09:00 Magnesium Hydroxide (Milk Of Magnesia) 2,400 mg PRN DAILY PRN PO CONSTIPATION ( 2nd Choice); Start 12/18/17 at 12:30 Bisacodyl (Dulcolax Supp) 10 mg PRN DAILY PRN [place] CONSTIPATION; Start 12/18/17 at 12:30 Rivaroxaban (Xarelto) 20 mg DAILYWSUP PO Last administered on 12/19/17at 17:17; Start 12/18/17 at 17:00 Info (Anti-Coagulation Monitoring By Pharmacy) 1 each PRN DAILY PRN MC SEE COMMENTS; Start 12/18/17 at 12:45 Gabapentin (Neurontin) 300 mg TID PO Last administered on 12/19/17at 14:54; Start 12/18/17 at 14:00; Stop 12/19/17 at 16:42; Status DC Gadobutrol (Gadavist) 9 mmol 1X ONCE IV Last administered on 12/18/17at 14:19; Start 12/18/17 at 14:00; Stop 12/18/17 at 14:01; Status DC Gabapentin (Neurontin) 400 mg TID PO Last administered on 12/20/17at 08:50; Start 12/19/17 at 21:00 Active Scripts Active Reported Xarelto (Rivaroxaban) 20 Mg Tablet 20 Mg PO DAILY Vitals/I & O Vital Sign - Last 24 Hours 12/19/17 12/19/17 12/19/17 12/19/17 15:27 19:00 19:00 19:09 Temp 97.7 98.1 97.7 98.1 Pulse 97 112 Resp 16 18 16 B/P (MAP) 144/83 (103) 164/92 (116) Pulse Ox 95 94 95 O2 Delivery Room Air Room Air Room Air Room Air 9/12/19/17 12/20/17 12/20/17 19:59 22:55 03:00 07:00 Temp 97.9 97.9 97.9 97.9 97.9 97.9 Pulse 94 92 83 Resp 16 18 18 18 B/P (MAP) 131/83 (99) 138/86 (103) 138/95 (109) Pulse Ox 95 93 94 93 O2 Delivery Room Air Room Air Room Air 12/20/17 12/20/17 07:08 08:53 Resp 16 Pulse Ox 94 O2 Delivery Room Air Room Air Intake and Output 12/19/17 12/19/17 12/20/17 15:00 23:00 07:00 Intake Total 1000 ml Output Total 700 ml 2700 ml Balance -700 ml -1700 ml KAREN LÓPEZ MD Dec 20, 2017 11:59
--- NOTE | 2017-12-20 12:12 | PDOC ---
PROGRESS NOTES Assessment Problems Medical Problems: (1) Contusion of left lower leg, initial encounter Status: Acute (2) Laceration of left lower leg without foreign body Status: Acute Right arm and leg paresthesias, right-sided neck pain, workup negative for stroke or myelopathy Right lateral femoral cutaneous neuropathy? Punctuate wound and laceration in left LE. Right LE DVT, Hx. Degenerative C-spine disease. Plan Continue Neurontin, increase to 400 mg tid. Wound care, left LE.. Treat medical diseases. Okay for discharge any time from neurological perspective Objective Vital Signs Date Time Temp Pulse Resp B/P (MAP) Pulse Ox O2 Delivery O2 Flow Rate FiO2 12/20/17 08:53 Room Air 12/20/17 07:08 16 94 12/20/17 07:00 97.9 83 138/95 (109) 97.9 Intake and Output 12/20/17 07:00 Intake Total 1000 ml Output Total 3400 ml Balance -2400 ml Intake Oral 1000 ml Output Urine Total 3400 ml # Bowel Movements 1 PHYSICAL EXAM Alert. Oriented to time, place and person. PERRL. EOMI. CN: no focal findings. Muscle tone: normal. Muscle strength: 5/5 DTR: 2+ Plantar reflex: flexor Gait: not examined. Sensory exam: patchy loss in right thigh. No cerebellar signs elicited. Review of Relevant I have reviewed the following items jono (where applicable) has been applied. Labs Laboratory Tests Test 12/18/17 15:05 12/19/17 03:55 12/19/17 04:00 12/20/17 04:50 Urine Opiates Screen Pos (NEG) Urine Methadone Screen Neg (NEG) Urine Barbiturates Neg (NEG) Urine Phencyclidine Screen Neg (NEG) Urine Amphetamine/Methamphetamine Neg (NEG) Urine Benzodiazepines Screen Neg (NEG) Urine Cocaine Screen Neg (NEG) Urine Cannabinoids Screen Neg (NEG) Urine Ethyl Alcohol Neg (NEG) Erythrocyte Sedimentation Rate 12 (0-15) Vitamin B12 Level 350 pg/mL (247-911) Thyroid Stimulating Hormone (TSH) 1.331 uIU/mL (0.358-3.74) White Blood Count 8.6 x10^3/uL (4.0-11.0) Red Blood Count 4.58 x10^6/uL (4.30-5.70) Hemoglobin 14.5 g/dL (13.0-17.5) Hematocrit 41.6 % (39.0-53.0) Mean Corpuscular Volume 91 fL (79-100) Mean Corpuscular Hemoglobin 32 pg (25-35) Mean Corpuscular Hemoglobin Concent 35 g/dL (31-37) Red Cell Distribution Width 14.6 % (11.5-14.5) Platelet Count 231 x10^3/uL (140-400) Neutrophils (%) (Auto) 67 % (31-73) Lymphocytes (%) (Auto) 18 % (24-48) Monocytes (%) (Auto) 9 % (0-9) Eosinophils (%) (Auto) 6 % (0-3) Basophils (%) (Auto) 1 % (0-3) Neutrophils # (Auto) 5.8 x10^3uL (1.8-7.7) Lymphocytes # (Auto) 1.5 x10^3/uL (1.0-4.8) Monocytes # (Auto) 0.7 x10^3/uL (0.0-1.1) Eosinophils # (Auto) 0.5 x10^3/uL (0.0-0.7) Basophils # (Auto) 0.1 x10^3/uL (0.0-0.2) Sodium Level 140 mmol/L (136-145) Potassium Level 4.2 mmol/L (3.5-5.1) Chloride Level 103 mmol/L (98-107) Carbon Dioxide Level 31 mmol/L (21-32) Anion Gap 6 (6-14) Blood Urea Nitrogen 14 mg/dL (8-26) Creatinine 1.0 mg/dL (0.7-1.3) Estimated GFR (Cockcroft-Gault) 78.5 BUN/Creatinine Ratio 14 (6-20) Glucose Level 94 mg/dL (70-99) Calcium Level 9.3 mg/dL (8.5-10.1) Total Bilirubin 0.3 mg/dL (0.2-1.0) Aspartate Amino Transf (AST/SGOT) 11 U/L (15-37) Alanine Aminotransferase (ALT/SGPT) 29 U/L (16-63) Alkaline Phosphatase 79 U/L (46-116) Total Protein 6.7 g/dL (6.4-8.2) Albumin 3.2 g/dL (3.4-5.0) Albumin/Globulin Ratio 0.9 (1.0-1.7) Laboratory Tests Test 12/20/17 04:50 White Blood Count 8.6 x10^3/uL (4.0-11.0) Red Blood Count 4.58 x10^6/uL (4.30-5.70) Hemoglobin 14.5 g/dL (13.0-17.5) Hematocrit 41.6 % (39.0-53.0) Mean Corpuscular Volume 91 fL (79-100) Mean Corpuscular Hemoglobin 32 pg (25-35) Mean Corpuscular Hemoglobin Concent 35 g/dL (31-37) Red Cell Distribution Width 14.6 % (11.5-14.5) Platelet Count 231 x10^3/uL (140-400) Neutrophils (%) (Auto) 67 % (31-73) Lymphocytes (%) (Auto) 18 % (24-48) Monocytes (%) (Auto) 9 % (0-9) Eosinophils (%) (Auto) 6 % (0-3) Basophils (%) (Auto) 1 % (0-3) Neutrophils # (Auto) 5.8 x10^3uL (1.8-7.7) Lymphocytes # (Auto) 1.5 x10^3/uL (1.0-4.8) Monocytes # (Auto) 0.7 x10^3/uL (0.0-1.1) Eosinophils # (Auto) 0.5 x10^3/uL (0.0-0.7) Basophils # (Auto) 0.1 x10^3/uL (0.0-0.2) Sodium Level 140 mmol/L (136-145) Potassium Level 4.2 mmol/L (3.5-5.1) Chloride Level 103 mmol/L (98-107) Carbon Dioxide Level 31 mmol/L (21-32) Anion Gap 6 (6-14) Blood Urea Nitrogen 14 mg/dL (8-26) Creatinine 1.0 mg/dL (0.7-1.3) Estimated GFR (Cockcroft-Gault) 78.5 BUN/Creatinine Ratio 14 (6-20) Glucose Level 94 mg/dL (70-99) Calcium Level 9.3 mg/dL (8.5-10.1) Total Bilirubin 0.3 mg/dL (0.2-1.0) Aspartate Amino Transf (AST/SGOT) 11 U/L (15-37) Alanine Aminotransferase (ALT/SGPT) 29 U/L (16-63) Alkaline Phosphatase 79 U/L (46-116) Total Protein 6.7 g/dL (6.4-8.2) Albumin 3.2 g/dL (3.4-5.0) Albumin/Globulin Ratio 0.9 (1.0-1.7) Microbiology 12/17/17 Anaerobic/Aerobic Culture, Resulted Pending 12/17/17 Anaerobic Culture Result 1 (BO), Resulted Pending 12/17/17 Aerobic Culture - Preliminary, Resulted 12/17/17 Aerobic Culture Result 1 (BO) - Preliminary, Resulted 12/17/17 Gram Stain - Final, Resulted 12/17/17 Gram Stain Result 1 (BO) - Final, Resulted 12/17/17 Gram Stain Result 2 (BO) - Final, Resulted Medications Current Medications Lidocaine/ Epinephrine (LIDOCAINE 1%-EPI 1:100,000 Multi-Dose) 20 ml 1X ONCE INJ Last administered on 12/15/17at 14:56; Start 12/15/17 at 11:45; Stop at 12:56; Status DC Fentanyl Citrate (Fentanyl 2ml Vial) 50 mcg 1X ONCE IV Last administered on at 13:02; Start 12/15/17 at 12:30; Stop 12/15/17 at 12:56; Status DC Gelatin (Gelfoam Size 100) 1 each STK-MED ONCE .ROUTE ; Start 12/15/17 at 13:58 ; Stop 12/15/17 at 13:59; Status DC Gelatin (Gelfoam Size 100) 1 each 1X ONCE TP Last administered on 12/15/17at 14:06; Start 12/15/17 at 14:15; Stop 12/15/17 at 14:16; Status DC Lorazepam (Ativan) 1 mg 1X ONCE PO Last administered on 12/15/17at 16:16; Start 12/15/17 at 16:00; Stop 12/15/17 at 16:01; Status DC Ondansetron HCl (Zofran) 4 mg PRN Q8HRS PRN IV NAUSEA/VOMITING; Start 12/15/17 at 16:00; Stop 12/16/17 at 15:59; Status DC Fentanyl Citrate (Fentanyl 2ml Vial) 50 mcg PRN Q2HR PRN IV PAIN Last administered on 12/17/17at 08:51; Start 12/15/17 at 16:00; Stop 12/17/17 at 15:58 ; Status DC Oxycodone/ Acetaminophen (Percocet 5/325) 1 tab PRN Q4HRS PRN PO MODERATE- SEVERE PAIN Last administered on 12/20/17at 07:08; Start 12/15/17 at 17:30 Lorazepam (Ativan) 0.5 mg PRN Q8HRS PRN PO ANXIETY / AGITATION; Start 12/15/17 at 17:30 Influenza Virus Vaccine (Afluria Trivalent [id number] Syringe) 0.5 ml ONCE ONCE VAX IM Last administered on 12/16/17at 11:20; Start 12/16/17 at 09:00; Stop at 09:01; Status DC Info (Do NOT chart on this placeholder) 1 each PRN 1X PRN MC SEE COMMENTS; Start 12/16/17 at 03:45; Status Cancel Ondansetron HCl (Zofran) 4 mg PRN Q6HRS PRN IV NAUSEA/VOMITING; Start 12/17/17 at 10:00; Stop 12/18/17 at 09:59; Status DC Fentanyl Citrate (Fentanyl 2ml Vial) 25 mcg PRN Q5MIN PRN IV MILD PAIN; Start 12/17/17 at 10:00; Stop 12/18/17 at 09:59; Status DC Fentanyl Citrate (Fentanyl 2ml Vial) 50 mcg PRN Q5MIN PRN IV MODERATE TO SEVERE PAIN Last administered on 12/17/17at 16:10; Start 12/17/17 at 10:00; Stop 12/18/17 at 09:59; Status DC Morphine Sulfate (Morphine Sulfate) 1 mg PRN Q10MIN PRN IV SEVERE PAIN; Start 12/17/17 at 10:00; Stop 12/18/17 at 09:59; Status DC Ringer's Solution 1,000 ml @ 30 mls/hr Q24H IV Last administered on 12/17/17at 09:53; Start 12/17/17 at 09:53; Stop 12/17/17 at 17:08; Status DC Lidocaine HCl (Xylocaine-Mpf 1% 2ml Vial) 2 ml 1X PRN PRN ID IV START; Start at 10:00; Stop 12/18/17 at 09:59; Status DC Hydromorphone HCl (Dilaudid) 0.5 mg PRN Q10MIN PRN IV SEV PAIN, Second choice; Start 12/17/17 at 10:00; Stop 12/18/17 at 09:59; Status DC Prochlorperazine Edisylate (Compazine) 5 mg PACU PRN PRN IV NAUSEA, MRX1; Start 12/17/17 at 10:00; Stop 12/18/17 at 09:59; Status DC Albuterol Sulfate (Ventolin Neb Soln) 2.5 mg PRN Q4HRS PRN NEB SHORTNESS OF BREATH; Start 12/17/17 at 13:00 Acetaminophen (Tylenol) 500 mg PRN Q6HRS PRN PO MILD PAIN / TEMP Last administered on 12/18/17at 14:48; Start 12/17/17 at 13:00 Dexamethasone Sodium Phosphate (Decadron) 20 mg STK-MED ONCE .ROUTE ; Start at 14:00; Stop 12/17/17 at 14:01; Status DC Famotidine (Pepcid Vial) 20 mg STK-MED ONCE .ROUTE ; Start 12/17/17 at 14:00; Stop 12/17/17 at 14:01; Status DC Ondansetron HCl (Zofran) 4 mg STK-MED ONCE .ROUTE ; Start 12/17/17 at 14:00; Stop 12/17/17 at 14:01; Status DC Propofol 20 ml @ As Directed STK-MED ONCE IV ; Start 12/17/17 at 14:00; Stop at 14:01; Status DC Fentanyl Citrate (Fentanyl 2ml Vial) 100 mcg STK-MED ONCE .ROUTE ; Start at 14:00; Stop 12/17/17 at 14:01; Status DC Midazolam HCl (Versed) 2 mg STK-MED ONCE .ROUTE ; Start 12/17/17 at 14:00; Stop 12/17/17 at 14:02; Status DC Phenylephrine HCl (PHENYLEPHRINE in 0.9% NACL PF) 1 mg STK-MED ONCE IV ; Start 12/17/17 at 15:01; Stop 12/17/17 at 15:02; Status DC Sevoflurane (Ultane) 30 ml STK-MED ONCE IH ; Start 12/17/17 at 15:08; Stop 12/17 at 15:09; Status DC Fentanyl Citrate (Fentanyl 2ml Vial) 100 mcg STK-MED ONCE .ROUTE ; Start at 15:41; Stop 12/17/17 at 15:42; Status DC Morphine Sulfate (Morphine Sulfate) 2 mg PRN Q4HRS PRN IV PAIN Last administered on 12/17/17at 20:06; Start 12/17/17 at 19:45 Iohexol (Omnipaque 300 Mg/ml) 75 ml 1X ONCE IT Last administered on 12/17/17at 22:00; Start 12/17/17 at 22:00; Stop 12/17/17 at 22:01; Status DC Info (CONTRAST GIVEN -- Rx MONITORING) 1 each PRN DAILY PRN MC SEE COMMENTS; Start 12/17/17 at 22:00; Stop 12/19/17 at 21:59; Status DC Enoxaparin Sodium (Lovenox 40mg Syringe) 40 mg 1X ONCE SQ ; Start 12/18/17 at 12:30; Stop 12/18/17 at 12:30; Status DC Docusate Sodium (Colace) 100 mg DAILY PO Last administered on 12/20/17at 08:51; Start 12/19/17 at 09:00 Docusate Sodium (Colace) 100 mg PRN DAILY PRN PO CONSTIPATION (1st Choice); Start 12/18/17 at 12:30 Polyethylene Glycol (miraLAX PACKET) 17 gm 1X ONCE PO Last administered on at 14:41; Start 12/18/17 at 12:30; Stop 12/18/17 at 12:31; Status DC Polyethylene Glycol (miraLAX PACKET) 17 gm DAILY PO Last administered on at 08:51; Start 12/19/17 at 09:00 Magnesium Hydroxide (Milk Of Magnesia) 2,400 mg PRN DAILY PRN PO CONSTIPATION ( 2nd Choice); Start 12/18/17 at 12:30 Bisacodyl (Dulcolax Supp) 10 mg PRN DAILY PRN SC CONSTIPATION; Start 12/18/17 at 12:30 Rivaroxaban (Xarelto) 20 mg DAILYWSUP PO Last administered on 12/19/17at 17:17; Start 12/18/17 at 17:00 Info (Anti-Coagulation Monitoring By Pharmacy) 1 each PRN DAILY PRN MC SEE COMMENTS; Start 12/18/17 at 12:45 Gabapentin (Neurontin) 300 mg TID PO Last administered on 12/19/17at 14:54; Start 12/18/17 at 14:00; Stop 12/19/17 at 16:42; Status DC Gadobutrol (Gadavist) 9 mmol 1X ONCE IV Last administered on 12/18/17at 14:19; Start 12/18/17 at 14:00; Stop 12/18/17 at 14:01; Status DC Gabapentin (Neurontin) 400 mg TID PO Last administered on 12/20/17at 08:50; Start 12/19/17 at 21:00 Active Scripts Active Reported Xarelto (Rivaroxaban) 20 Mg Tablet 20 Mg PO DAILY Vitals/I & O Vital Sign - Last 24 Hours 12/19/17 12/19/17 12/19/17 12/19/17 15:27 19:00 19:00 19:09 Temp 97.7 98.1 97.7 98.1 Pulse 97 112 Resp 16 18 16 B/P (MAP) 144/83 (103) 164/92 (116) Pulse Ox 95 94 95 O2 Delivery Room Air Room Air Room Air Room Air 12/19/17 12/19/17 12/20/17 12/20/17 19:59 22:55 03:00 07:00 Temp 97.9 97.9 97.9 97.9 97.9 97.9 Pulse 94 92 83 Resp 16 18 18 18 B/P (MAP) 131/83 (99) 138/86 (103) 138/95 (109) Pulse Ox 95 93 94 93 O2 Delivery Room Air Room Air Room Air 12/20/17 12/20/17 07:08 08:53 Resp 16 Pulse Ox 94 O2 Delivery Room Air Room Air Intake and Output 12/19/17 12/19/17 12/20/17 15:00 23:00 07:00 Intake Total 1000 ml Output Total 700 ml 2700 ml Balance -700 ml -1700 ml MANSI SANTOS MD Dec 20, 2017 12:12
[2017-12-20] MEDS: ANTI-COAG MONITOR BY PHARMACY. MC PRN (14:24)
[2017-12-20 15:00] VITALS: BP 140/95
--- NOTE | 2017-12-20 15:23 | PDOC ---
PROGRESS NOTES Chief Complaint Chief Complaint LATE ENTRY, pt seen 12/19 blunt injury to soft tissue anterior LLE leg laceration, with marked blood loss s/p deep sutures on xarelto for contralateral leg DVT, restarted after surgery, incarcerated anxiety d/o, right arm and leg weakness with parathesia, allodynia and tingling pain, cervical spine with mult problems on Mri degenerative disc disease C5-C6 w/ spondylosis and mild stenosis History of Present Illness History of Present Illness s/p surg Dr. Wilson, area looks much improved from admit, less swollen restarted Xarelto for right leg DVT - Dx October 2017, first episode, Creatinine is normal anxiety is better today 12/19 will MRI C-spine showed mult problems, discussed with Dr. Figueroa, probable Meralgia paresthetica Vitals Vitals Vital Signs Date Time Temp Pulse Resp B/P (MAP) Pulse Ox O2 Delivery O2 Flow Rate FiO2 12/20/17 13:30 Room Air 12/20/17 11:00 97.9 84 18 142/78 (99) 92 97.9 Physical Exam General: Alert, Oriented X3, No acute distress Heart: Regular rate Lungs: Clear Abdomen: Normal bowel sounds, Soft Extremities: Other (LLE with some edema, pulses present, dusky skin edges in wound) Skin: No rashes, No significant lesion, Other (laceration dressed) Labs LABS Laboratory Tests Test 12/20/17 04:50 White Blood Count 8.6 x10^3/uL (4.0-11.0) Red Blood Count 4.58 x10^6/uL (4.30-5.70) Hemoglobin 14.5 g/dL (13.0-17.5) Hematocrit 41.6 % (39.0-53.0) Mean Corpuscular Volume 91 fL (79-100) Mean Corpuscular Hemoglobin 32 pg (25-35) Mean Corpuscular Hemoglobin Concent 35 g/dL (31-37) Red Cell Distribution Width 14.6 % (11.5-14.5) Platelet Count 231 x10^3/uL (140-400) Neutrophils (%) (Auto) 67 % (31-73) Lymphocytes (%) (Auto) 18 % (24-48) Monocytes (%) (Auto) 9 % (0-9) Eosinophils (%) (Auto) 6 % (0-3) Basophils (%) (Auto) 1 % (0-3) Neutrophils # (Auto) 5.8 x10^3uL (1.8-7.7) Lymphocytes # (Auto) 1.5 x10^3/uL (1.0-4.8) Monocytes # (Auto) 0.7 x10^3/uL (0.0-1.1) Eosinophils # (Auto) 0.5 x10^3/uL (0.0-0.7) Basophils # (Auto) 0.1 x10^3/uL (0.0-0.2) Sodium Level 140 mmol/L (136-145) Potassium Level 4.2 mmol/L (3.5-5.1) Chloride Level 103 mmol/L (98-107) Carbon Dioxide Level 31 mmol/L (21-32) Anion Gap 6 (6-14) Blood Urea Nitrogen 14 mg/dL (8-26) Creatinine 1.0 mg/dL (0.7-1.3) Estimated GFR (Cockcroft-Gault) 78.5 BUN/Creatinine Ratio 14 (6-20) Glucose Level 94 mg/dL (70-99) Calcium Level 9.3 mg/dL (8.5-10.1) Total Bilirubin 0.3 mg/dL (0.2-1.0) Aspartate Amino Transf (AST/SGOT) 11 U/L (15-37) Alanine Aminotransferase (ALT/SGPT) 29 U/L (16-63) Alkaline Phosphatase 79 U/L (46-116) Total Protein 6.7 g/dL (6.4-8.2) Albumin 3.2 g/dL (3.4-5.0) Albumin/Globulin Ratio 0.9 (1.0-1.7) Assessment and Plan Assessmemt and Plan Problems Medical Problems: (1) Contusion of left lower leg, initial encounter Status: Acute (2) Laceration of left lower leg without foreign body Status: Acute Comment Review of Relevant I have reviewed the following items jono (where applicable) has been applied. Labs Laboratory Tests Test 12/19/17 03:55 12/19/17 04:00 12/20/17 04:50 Erythrocyte Sedimentation Rate 12 (0-15) Vitamin B12 Level 350 pg/mL (247-911) Thyroid Stimulating Hormone (TSH) 1.331 uIU/mL (0.358-3.74) White Blood Count 8.6 x10^3/uL (4.0-11.0) Red Blood Count 4.58 x10^6/uL (4.30-5.70) Hemoglobin 14.5 g/dL (13.0-17.5) Hematocrit 41.6 % (39.0-53.0) Mean Corpuscular Volume 91 fL (79-100) Mean Corpuscular Hemoglobin 32 pg (25-35) Mean Corpuscular Hemoglobin Concent 35 g/dL (31-37) Red Cell Distribution Width 14.6 % (11.5-14.5) Platelet Count 231 x10^3/uL (140-400) Neutrophils (%) (Auto) 67 % (31-73) Lymphocytes (%) (Auto) 18 % (24-48) Monocytes (%) (Auto) 9 % (0-9) Eosinophils (%) (Auto) 6 % (0-3) Basophils (%) (Auto) 1 % (0-3) Neutrophils # (Auto) 5.8 x10^3uL (1.8-7.7) Lymphocytes # (Auto) 1.5 x10^3/uL (1.0-4.8) Monocytes # (Auto) 0.7 x10^3/uL (0.0-1.1) Eosinophils # (Auto) 0.5 x10^3/uL (0.0-0.7) Basophils # (Auto) 0.1 x10^3/uL (0.0-0.2) Sodium Level 140 mmol/L (136-145) Potassium Level 4.2 mmol/L (3.5-5.1) Chloride Level 103 mmol/L (98-107) Carbon Dioxide Level 31 mmol/L (21-32) Anion Gap 6 (6-14) Blood Urea Nitrogen 14 mg/dL (8-26) Creatinine 1.0 mg/dL (0.7-1.3) Estimated GFR (Cockcroft-Gault) 78.5 BUN/Creatinine Ratio 14 (6-20) Glucose Level 94 mg/dL (70-99) Calcium Level 9.3 mg/dL (8.5-10.1) Total Bilirubin 0.3 mg/dL (0.2-1.0) Aspartate Amino Transf (AST/SGOT) 11 U/L (15-37) Alanine Aminotransferase (ALT/SGPT) 29 U/L (16-63) Alkaline Phosphatase 79 U/L (46-116) Total Protein 6.7 g/dL (6.4-8.2) Albumin 3.2 g/dL (3.4-5.0) Albumin/Globulin Ratio 0.9 (1.0-1.7) Laboratory Tests Test 12/20/17 04:50 White Blood Count 8.6 x10^3/uL (4.0-11.0) Red Blood Count 4.58 x10^6/uL (4.30-5.70) Hemoglobin 14.5 g/dL (13.0-17.5) Hematocrit 41.6 % (39.0-53.0) Mean Corpuscular Volume 91 fL (79-100) Mean Corpuscular Hemoglobin 32 pg (25-35) Mean Corpuscular Hemoglobin Concent 35 g/dL (31-37) Red Cell Distribution Width 14.6 % (11.5-14.5) Platelet Count 231 x10^3/uL (140-400) Neutrophils (%) (Auto) 67 % (31-73) Lymphocytes (%) (Auto) 18 % (24-48) Monocytes (%) (Auto) 9 % (0-9) Eosinophils (%) (Auto) 6 % (0-3) Basophils (%) (Auto) 1 % (0-3) Neutrophils # (Auto) 5.8 x10^3uL (1.8-7.7) Lymphocytes # (Auto) 1.5 x10^3/uL (1.0-4.8) Monocytes # (Auto) 0.7 x10^3/uL (0.0-1.1) Eosinophils # (Auto) 0.5 x10^3/uL (0.0-0.7) Basophils # (Auto) 0.1 x10^3/uL (0.0-0.2) Sodium Level 140 mmol/L (136-145) Potassium Level 4.2 mmol/L (3.5-5.1) Chloride Level 103 mmol/L (98-107) Carbon Dioxide Level 31 mmol/L (21-32) Anion Gap 6 (6-14) Blood Urea Nitrogen 14 mg/dL (8-26) Creatinine 1.0 mg/dL (0.7-1.3) Estimated GFR (Cockcroft-Gault) 78.5 BUN/Creatinine Ratio 14 (6-20) Glucose Level 94 mg/dL (70-99) Calcium Level 9.3 mg/dL (8.5-10.1) Total Bilirubin 0.3 mg/dL (0.2-1.0) Aspartate Amino Transf (AST/SGOT) 11 U/L (15-37) Alanine Aminotransferase (ALT/SGPT) 29 U/L (16-63) Alkaline Phosphatase 79 U/L (46-116) Total Protein 6.7 g/dL (6.4-8.2) Albumin 3.2 g/dL (3.4-5.0) Albumin/Globulin Ratio 0.9 (1.0-1.7) Microbiology 12/17/17 Anaerobic/Aerobic Culture, Resulted Pending 12/17/17 Anaerobic Culture Result 1 (BO), Resulted Pending 12/17/17 Aerobic Culture - Final, Resulted 12/17/17 Aerobic Culture Result 1 (BO) - Final, Resulted 12/17/17 Antimicrobic Susceptibility - Final, Resulted 12/17/17 Gram Stain - Final, Resulted 12/17/17 Gram Stain Result 1 (BO) - Final, Resulted 12/17/17 Gram Stain Result 2 (BO) - Final, Resulted Medications Current Medications Lidocaine/ Epinephrine (LIDOCAINE 1%-EPI 1:100,000 Multi-Dose) 20 ml 1X ONCE INJ Last administered on 12/15/17at 14:56; Start 12/15/17 at 11:45; Stop at 12:56; Status DC Fentanyl Citrate (Fentanyl 2ml Vial) 50 mcg 1X ONCE IV Last administered on at 13:02; Start 12/15/17 at 12:30; Stop 12/15/17 at 12:56; Status DC Gelatin (Gelfoam Size 100) 1 each STK-MED ONCE .ROUTE ; Start 12/15/17 at 13:58 ; Stop 12/15/17 at 13:59; Status DC Gelatin (Gelfoam Size 100) 1 each 1X ONCE TP Last administered on 12/15/17at 14:06; Start 12/15/17 at 14:15; Stop 12/15/17 at 14:16; Status DC Lorazepam (Ativan) 1 mg 1X ONCE PO Last administered on 12/15/17at 16:16; Start 12/15/17 at 16:00; Stop 12/15/17 at 16:01; Status DC Ondansetron HCl (Zofran) 4 mg PRN Q8HRS PRN IV NAUSEA/VOMITING; Start 12/15/17 at 16:00; Stop 12/16/17 at 15:59; Status DC Fentanyl Citrate (Fentanyl 2ml Vial) 50 mcg PRN Q2HR PRN IV PAIN Last administered on 12/17/17at 08:51; Start 12/15/17 at 16:00; Stop 12/17/17 at 15:58 ; Status DC Oxycodone/ Acetaminophen (Percocet 5/325) 1 tab PRN Q4HRS PRN PO MODERATE- SEVERE PAIN Last administered on 12/20/17at 13:30; Start 12/15/17 at 17:30 Lorazepam (Ativan) 0.5 mg PRN Q8HRS PRN PO ANXIETY / AGITATION; Start 12/15/17 at 17:30 Influenza Virus Vaccine (Afluria Trivalent 1208-6704 Syringe) 0.5 ml ONCE ONCE VAX IM Last administered on 12/16/17at 11:20; Start 12/16/17 at 09:00; Stop at 09:01; Status DC Info (Do NOT chart on this placeholder) 1 each PRN 1X PRN MC SEE COMMENTS; Start 12/16/17 at 03:45; Status Cancel Ondansetron HCl (Zofran) 4 mg PRN Q6HRS PRN IV NAUSEA/VOMITING; Start 12/17/17 at 10:00; Stop 12/18/17 at 09:59; Status DC Fentanyl Citrate (Fentanyl 2ml Vial) 25 mcg PRN Q5MIN PRN IV MILD PAIN; Start 12/17/17 at 10:00; Stop 12/18/17 at 09:59; Status DC Fentanyl Citrate (Fentanyl 2ml Vial) 50 mcg PRN Q5MIN PRN IV MODERATE TO SEVERE PAIN Last administered on 12/17/17at 16:10; Start 12/17/17 at 10:00; Stop 12/18/17 at 09:59; Status DC Morphine Sulfate (Morphine Sulfate) 1 mg PRN Q10MIN PRN IV SEVERE PAIN; Start 12/17/17 at 10:00; Stop 12/18/17 at 09:59; Status DC Ringer's Solution 1,000 ml @ 30 mls/hr Q24H IV Last administered on 12/17/17at 09:53; Start 12/17/17 at 09:53; Stop 12/17/17 at 17:08; Status DC Lidocaine HCl (Xylocaine-Mpf 1% 2ml Vial) 2 ml 1X PRN PRN ID IV START; Start at 10:00; Stop 12/18/17 at 09:59; Status DC Hydromorphone HCl (Dilaudid) 0.5 mg PRN Q10MIN PRN IV SEV PAIN, Second choice; Start 12/17/17 at 10:00; Stop 12/18/17 at 09:59; Status DC Prochlorperazine Edisylate (Compazine) 5 mg PACU PRN PRN IV NAUSEA, MRX1; Start 12/17/17 at 10:00; Stop 12/18/17 at 09:59; Status DC Albuterol Sulfate (Ventolin Neb Soln) 2.5 mg PRN Q4HRS PRN NEB SHORTNESS OF BREATH; Start 12/17/17 at 13:00 Acetaminophen (Tylenol) 500 mg PRN Q6HRS PRN PO MILD PAIN / TEMP Last administered on 12/18/17at 14:48; Start 12/17/17 at 13:00 Dexamethasone Sodium Phosphate (Decadron) 20 mg STK-MED ONCE .ROUTE ; Start at 14:00; Stop 12/17/17 at 14:01; Status DC Famotidine (Pepcid Vial) 20 mg STK-MED ONCE .ROUTE ; Start 12/17/17 at 14:00; Stop 12/17/17 at 14:01; Status DC Ondansetron HCl (Zofran) 4 mg STK-MED ONCE .ROUTE ; Start 12/17/17 at 14:00; Stop 12/17/17 at 14:01; Status DC Propofol 20 ml @ As Directed STK-MED ONCE IV ; Start 12/17/17 at 14:00; Stop at 14:01; Status DC Fentanyl Citrate (Fentanyl 2ml Vial) 100 mcg STK-MED ONCE .ROUTE ; Start at 14:00; Stop 12/17/17 at 14:01; Status DC Midazolam HCl (Versed) 2 mg STK-MED ONCE .ROUTE ; Start 12/17/17 at 14:00; Stop 12/17/17 at 14:02; Status DC Phenylephrine HCl (PHENYLEPHRINE in 0.9% NACL PF) 1 mg STK-MED ONCE IV ; Start 12/17/17 at 15:01; Stop 12/17/17 at 15:02; Status DC Sevoflurane (Ultane) 30 ml STK-MED ONCE IH ; Start 12/17/17 at 15:08; Stop 12/17 at 15:09; Status DC Fentanyl Citrate (Fentanyl 2ml Vial) 100 mcg STK-MED ONCE .ROUTE ; Start at 15:41; Stop 12/17/17 at 15:42; Status DC Morphine Sulfate (Morphine Sulfate) 2 mg PRN Q4HRS PRN IV PAIN Last administered on 12/17/17at 20:06; Start 12/17/17 at 19:45 Iohexol (Omnipaque 300 Mg/ml) 75 ml 1X ONCE IT Last administered on 12/17/17at 22:00; Start 12/17/17 at 22:00; Stop 12/17/17 at 22:01; Status DC Info (CONTRAST GIVEN -- Rx MONITORING) 1 each PRN DAILY PRN MC SEE COMMENTS; Start 12/17/17 at 22:00; Stop 12/19/17 at 21:59; Status DC Enoxaparin Sodium (Lovenox 40mg Syringe) 40 mg 1X ONCE SQ ; Start 12/18/17 at 12:30; Stop 12/18/17 at 12:30; Status DC Docusate Sodium (Colace) 100 mg DAILY PO Last administered on 12/20/17at 08:51; Start 12/19/17 at 09:00 Docusate Sodium (Colace) 100 mg PRN DAILY PRN PO CONSTIPATION (1st Choice); Start 12/18/17 at 12:30 Polyethylene Glycol (miraLAX PACKET) 17 gm 1X ONCE PO Last administered on at 14:41; Start 12/18/17 at 12:30; Stop 9/22/18 at 12:31; Status DC Polyethylene Glycol (miraLAX PACKET) 17 gm DAILY PO Last administered on at 08:51; Start 12/19/17 at 09:00 Magnesium Hydroxide (Milk Of Magnesia) 2,400 mg PRN DAILY PRN PO CONSTIPATION ( 2nd Choice); Start 12/18/17 at 12:30 Bisacodyl (Dulcolax Supp) 10 mg PRN DAILY PRN CA CONSTIPATION; Start 12/18/17 at 12:30 Rivaroxaban (Xarelto) 20 mg DAILYWSUP PO Last administered on 12/19/17at 17:17; Start 12/18/17 at 17:00 Info (Anti-Coagulation Monitoring By Pharmacy) 1 each PRN DAILY PRN MC SEE COMMENTS Last administered on 12/20/17at 14:24; Start 12/18/17 at 12:45 Gabapentin (Neurontin) 300 mg TID PO Last administered on 12/19/17at 14:54; Start 12/18/17 at 14:00; Stop 12/19/17 at 16:42; Status DC Gadobutrol (Gadavist) 9 mmol 1X ONCE IV Last administered on 12/18/17at 14:19; Start 12/18/17 at 14:00; Stop 12/18/17 at 14:01; Status DC Gabapentin (Neurontin) 400 mg TID PO Last administered on 12/20/17at 13:31; Start 12/19/17 at 21:00 Active Scripts Active Reported Xarelto (Rivaroxaban) 20 Mg Tablet 20 Mg PO DAILY Vitals/I & O Vital Sign - Last 24 Hours 12/19/17 12/19/17 12/19/17 12/19/17 15:27 19:00 19:00 19:09 Temp 97.7 98.1 97.7 98.1 Pulse 97 112 Resp 16 18 16 B/P (MAP) 144/83 (103) 164/92 (116) Pulse Ox 95 94 95 O2 Delivery Room Air Room Air Room Air Room Air 12/19/17 12/19/17 12/20/17 12/20/17 19:59 22:55 03:00 07:00 Temp 97.9 97.9 97.9 97.9 97.9 97.9 Pulse 94 92 83 Resp 16 18 18 18 B/P (MAP) 131/83 (99) 138/86 (103) 138/95 (109) Pulse Ox 95 93 94 93 O2 Delivery Room Air Room Air Room Air 12/20/17 12/20/17 12/20/17 12/20/17 07:08 08:00 08:53 11:00 Temp 97.9 97.9 Pulse 84 Resp 16 18 B/P (MAP) 142/78 (99) Pulse Ox 94 92 O2 Delivery Room Air Room Air Room Air Room Air 12/20/17 13:30 O2 Delivery Room Air Intake and Output 12/19/17 12/19/17 12/20/17 15:00 23:00 07:00 Intake Total 1000 ml Output Total 700 ml 2700 ml Balance -700 ml -1700 ml LUIS CUTLER MD Dec 20, 2017 15:23
[2017-12-20] MEDS: RIVAROXABAN 10 MG TABLET. PO SCH (17:05)
[2017-12-20] MEDS: ACETAMINOPHEN 500 MG TABLET PO PRN (17:12)
[2017-12-20] MEDS ORDERED: VANCOMYCIN 1 GM in IV NORMAL SALINE 250ML 250 ML IV SCH (17:45)
[2017-12-20] MEDS ORDERED: VANCOMYCIN 2 GM in IV NORMAL SALINE 500ML BAG 500 ML IV ONE (18:00)
[2017-12-20] MEDS ORDERED: VANCOMYCIN PER PHARMACY MC PRN (18:00)
[2017-12-20 19:00] VITALS: BP 139/88
[2017-12-20 23:00] VITALS: BP 139/88
--- NOTE | 2017-12-20 23:06 | RAD ---
Exam performed: Left lower extremity venous Doppler History: Redness and swelling injury to admission patient is on blood thinners for right DVT DATE OF SERVICE: 12/20/2017. COMPARISON: None available TECHNIQUE: Real-time grayscale, color-flow duplex Doppler and spectral analysis of the left lower extremity deep venous system was performed and images are obtained. FINDINGS: The study somewhat limited due to diffuse swelling, thereby causing limited compressibility. There is a possible filling defect in the left proximal peroneal vein seen only in 1 of the 2 paired peroneal veins. The remainder left lower extremity deep venous system appears patent and compressible. No intraluminal clot is identified. Note is made of large left groin lymph nodes. IMPRESSION: Questionable clot in the left peroneal vein. Electronically signed by: Ellen Hickman MD (12/20/2017 11:03 PM) [facility]
[2017-12-21] VITALS (7 sets, daily range): BP systolic 123–147; BP diastolic 87–97
[2017-12-21] MEDS: oxyCODONE/APAP 5/325 1 TAB TABLET PO PRN ×3 (05:49→19:13)
[2017-12-21 06:02] LABS: BASO # 0.1 x10^3/uL (0.0-0.2); BASO % 1 % (0-3); EOS # 0.5 x10^3/uL (0.0-0.7); EOS % 6 % (0-3); HEMATOCRIT 42.6 % (39.0-53.0); LYMPH # 1.1 x10^3/uL (1.0-4.8); LYMPH % 12 % (24-48); MEAN CORPUSCULAR HEMOGLOBIN 32 pg (25-35); MEAN CORPUSCULAR HGB CONC 35 g/dL (31-37); MEAN CORPUSCULAR VOLUME 90 fL (79-100); MONO # 0.8 x10^3/uL (0.0-1.1); MONO % 9 % (0-9); NEUT # 6.1 x10^3uL (1.8-7.7); NEUT % 72 % (31-73); PLATELET COUNT 232 x10^3/uL (140-400); RED BLOOD COUNT 4.71 x10^6/uL (4.30-5.70); RED CELL DISTRIBUTION WIDTH 14.4 % (11.5-14.5); WHITE BLOOD COUNT 8.5 x10^3/uL (4.0-11.0)
[2017-12-21 06:30] LABS: ALBUMIN 3.3 g/dL (3.4-5.0); ALBUMIN/GLOBULIN RATIO 0.9 (1.0-1.7); CALCIUM 8.9 mg/dL (8.5-10.1); GFR 78.5; POTASSIUM 4.6 mmol/L (3.5-5.1); TOTAL BILIRUBIN 0.4 mg/dL (0.2-1.0)
[2017-12-21] MEDS ORDERED: VANCOMYCIN 1.5 GM in IV NORMAL SALINE 500ML BAG 500 ML IV SCH (06:30)
[2017-12-21] MEDS: DOCUSATE SODIUM 100 MG CAPSULE. PO SCH (08:35)
[2017-12-21] MEDS: GABAPENTIN 400 MG CAPSULE. PO SCH ×3 (08:35→20:59)
[2017-12-21] MEDS: POLYETHYLENE GLYCOL 3350 17 GM PACKET. PO SCH (08:35)
--- NOTE | 2017-12-21 09:58 | PDOC ---
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 Plan Continue Neurontin Wound care, left LE.. Treat medical diseases. I get a flavor of nonorganic overlay, but we could consider outpatient EMG for completeness. Okay for discharge any time from neurological perspective Subjective Complains of increased right arm numbness Objective Vital Signs Date Time Temp Pulse Resp B/P (MAP) Pulse Ox O2 Delivery O2 Flow Rate FiO2 12/21/17 08:39 97.8 86 18 144/94 (111) 94 Room Air 97.8 Intake and Output 12/21/17 07:00 Intake Total 1940 ml Output Total 1150 ml Balance 790 ml Intake Oral 1440 ml IV Total 500 ml Output Urine Total 1150 ml PHYSICAL EXAM Alert. Oriented to time, place and person. PERRL. EOMI. CN: no focal findings. Muscle tone: normal. Muscle strength: 5/5 DTR: 2+ Plantar reflex: flexor Gait: not examined. Sensory exam: patchy loss in right thigh, right arm, not in right torso, nondermatomal. No cerebellar signs elicited. Review of Relevant I have reviewed the following items jono (where applicable) has been applied. Labs Laboratory Tests Test 12/20/17 04:50 12/21/17 05:30 White Blood Count 8.6 x10^3/uL (4.0-11.0) 8.5 x10^3/uL (4.0-11.0) Red Blood Count 4.58 x10^6/uL (4.30-5.70) 4.71 x10^6/uL (4.30-5.70) Hemoglobin 14.5 g/dL (13.0-17.5) 15.0 g/dL (13.0-17.5) Hematocrit 41.6 % (39.0-53.0) 42.6 % (39.0-53.0) Mean Corpuscular Volume 91 fL (79-100) 90 fL (79-100) Mean Corpuscular Hemoglobin 32 pg (25-35) 32 pg (25-35) Mean Corpuscular Hemoglobin Concent 35 g/dL (31-37) 35 g/dL (31-37) Red Cell Distribution Width 14.6 % (11.5-14.5) 14.4 % (11.5-14.5) Platelet Count 231 x10^3/uL (140-400) 232 x10^3/uL (140-400) Neutrophils (%) (Auto) 67 % (31-73) 72 % (31-73) Lymphocytes (%) (Auto) 18 % (24-48) 12 % (24-48) Monocytes (%) (Auto) 9 % (0-9) 9 % (0-9) Eosinophils (%) (Auto) 6 % (0-3) 6 % (0-3) Basophils (%) (Auto) 1 % (0-3) 1 % (0-3) Neutrophils # (Auto) 5.8 x10^3uL (1.8-7.7) 6.1 x10^3uL (1.8-7.7) Lymphocytes # (Auto) 1.5 x10^3/uL (1.0-4.8) 1.1 x10^3/uL (1.0-4.8) Monocytes # (Auto) 0.7 x10^3/uL (0.0-1.1) 0.8 x10^3/uL (0.0-1.1) Eosinophils # (Auto) 0.5 x10^3/uL (0.0-0.7) 0.5 x10^3/uL (0.0-0.7) Basophils # (Auto) 0.1 x10^3/uL (0.0-0.2) 0.1 x10^3/uL (0.0-0.2) Sodium Level 140 mmol/L (136-145) 140 mmol/L (136-145) Potassium Level 4.2 mmol/L (3.5-5.1) 4.6 mmol/L (3.5-5.1) Chloride Level 103 mmol/L (98-107) 103 mmol/L (98-107) Carbon Dioxide Level 31 mmol/L (21-32) 30 mmol/L (21-32) Anion Gap 6 (6-14) 7 (6-14) Blood Urea Nitrogen 14 mg/dL (8-26) 15 mg/dL (8-26) Creatinine 1.0 mg/dL (0.7-1.3) 1.0 mg/dL (0.7-1.3) Estimated GFR (Cockcroft-Gault) 78.5 78.5 BUN/Creatinine Ratio 14 (6-20) 15 (6-20) Glucose Level 94 mg/dL (70-99) 95 mg/dL (70-99) Calcium Level 9.3 mg/dL (8.5-10.1) 8.9 mg/dL (8.5-10.1) Total Bilirubin 0.3 mg/dL (0.2-1.0) 0.4 mg/dL (0.2-1.0) Aspartate Amino Transf (AST/SGOT) 11 U/L (15-37) 13 U/L (15-37) Alanine Aminotransferase (ALT/SGPT) 29 U/L (16-63) 29 U/L (16-63) Alkaline Phosphatase 79 U/L (46-116) 71 U/L (46-116) Total Protein 6.7 g/dL (6.4-8.2) 7.0 g/dL (6.4-8.2) Albumin 3.2 g/dL (3.4-5.0) 3.3 g/dL (3.4-5.0) Albumin/Globulin Ratio 0.9 (1.0-1.7) 0.9 (1.0-1.7) Laboratory Tests Test 12/21/17 05:30 White Blood Count 8.5 x10^3/uL (4.0-11.0) Red Blood Count 4.71 x10^6/uL (4.30-5.70) Hemoglobin 15.0 g/dL (13.0-17.5) Hematocrit 42.6 % (39.0-53.0) Mean Corpuscular Volume 90 fL (79-100) Mean Corpuscular Hemoglobin 32 pg (25-35) Mean Corpuscular Hemoglobin Concent 35 g/dL (31-37) Red Cell Distribution Width 14.4 % (11.5-14.5) Platelet Count 232 x10^3/uL (140-400) Neutrophils (%) (Auto) 72 % (31-73) Lymphocytes (%) (Auto) 12 % (24-48) Monocytes (%) (Auto) 9 % (0-9) Eosinophils (%) (Auto) 6 % (0-3) Basophils (%) (Auto) 1 % (0-3) Neutrophils # (Auto) 6.1 x10^3uL (1.8-7.7) Lymphocytes # (Auto) 1.1 x10^3/uL (1.0-4.8) Monocytes # (Auto) 0.8 x10^3/uL (0.0-1.1) Eosinophils # (Auto) 0.5 x10^3/uL (0.0-0.7) Basophils # (Auto) 0.1 x10^3/uL (0.0-0.2) Sodium Level 140 mmol/L (136-145) Potassium Level 4.6 mmol/L (3.5-5.1) Chloride Level 103 mmol/L (98-107) Carbon Dioxide Level 30 mmol/L (21-32) Anion Gap 7 (6-14) Blood Urea Nitrogen 15 mg/dL (8-26) Creatinine 1.0 mg/dL (0.7-1.3) Estimated GFR (Cockcroft-Gault) 78.5 BUN/Creatinine Ratio 15 (6-20) Glucose Level 95 mg/dL (70-99) Calcium Level 8.9 mg/dL (8.5-10.1) Total Bilirubin 0.4 mg/dL (0.2-1.0) Aspartate Amino Transf (AST/SGOT) 13 U/L (15-37) Alanine Aminotransferase (ALT/SGPT) 29 U/L (16-63) Alkaline Phosphatase 71 U/L (46-116) Total Protein 7.0 g/dL (6.4-8.2) Albumin 3.3 g/dL (3.4-5.0) Albumin/Globulin Ratio 0.9 (1.0-1.7) Microbiology 12/17/17 Anaerobic/Aerobic Culture - Preliminary, Resulted 12/17/17 Anaerobic Culture Result 1 (BO) - Preliminary, Resulted 12/17/17 Aerobic Culture - Final, Resulted 12/17/17 Aerobic Culture Result 1 (BO) - Final, Resulted 12/17/17 Antimicrobic Susceptibility - Final, Resulted 12/17/17 Gram Stain - Final, Resulted 12/17/17 Gram Stain Result 1 (BO) - Final, Resulted 12/17/17 Gram Stain Result 2 (BO) - Final, Resulted Medications Current Medications Lidocaine/ Epinephrine (LIDOCAINE 1%-EPI 1:100,000 Multi-Dose) 20 ml 1X ONCE INJ Last administered on 12/15/17at 14:56; Start 12/15/17 at 11:45; Stop at 12:56; Status DC Fentanyl Citrate (Fentanyl 2ml Vial) 50 mcg 1X ONCE IV Last administered on at 13:02; Start 12/15/17 at 12:30; Stop 12/15/17 at 12:56; Status DC Gelatin (Gelfoam Size 100) 1 each STK-MED ONCE .ROUTE ; Start 12/15/17 at 13:58 ; Stop 12/15/17 at 13:59; Status DC Gelatin (Gelfoam Size 100) 1 each 1X ONCE TP Last administered on 12/15/17at 14:06; Start 12/15/17 at 14:15; Stop 12/15/17 at 14:16; Status DC Lorazepam (Ativan) 1 mg 1X ONCE PO Last administered on 12/15/17at 16:16; Start 12/15/17 at 16:00; Stop 12/15/17 at 16:01; Status DC Ondansetron HCl (Zofran) 4 mg PRN Q8HRS PRN IV NAUSEA/VOMITING; Start 12/15/17 at 16:00; Stop 12/16/17 at 15:59; Status DC Fentanyl Citrate (Fentanyl 2ml Vial) 50 mcg PRN Q2HR PRN IV PAIN Last administered on 12/17/17at 08:51; Start 12/15/17 at 16:00; Stop 12/17/17 at 15:58 ; Status DC Oxycodone/ Acetaminophen (Percocet 5/325) 1 tab PRN Q4HRS PRN PO MODERATE- SEVERE PAIN Last administered on 12/21/17at 05:49; Start 12/15/17 at 17:30 Lorazepam (Ativan) 0.5 mg PRN Q8HRS PRN PO ANXIETY / AGITATION Last administered on 12/20/17at 23:07; Start 12/15/17 at 17:30 Influenza Virus Vaccine (Afluria Trivalent [id number] Syringe) 0.5 ml ONCE ONCE VAX IM Last administered on 12/16/17at 11:20; Start 12/16/17 at 09:00; Stop at 09:01; Status DC Info (Do NOT chart on this placeholder) 1 each PRN 1X PRN MC SEE COMMENTS; Start 12/16/17 at 03:45; Status Cancel Ondansetron HCl (Zofran) 4 mg PRN Q6HRS PRN IV NAUSEA/VOMITING; Start 12/17/17 at 10:00; Stop 12/18/17 at 09:59; Status DC Fentanyl Citrate (Fentanyl 2ml Vial) 25 mcg PRN Q5MIN PRN IV MILD PAIN; Start 12/17/17 at 10:00; Stop 12/18/17 at 09:59; Status DC Fentanyl Citrate (Fentanyl 2ml Vial) 50 mcg PRN Q5MIN PRN IV MODERATE TO SEVERE PAIN Last administered on 12/17/17at 16:10; Start 12/17/17 at 10:00; Stop 12/18/17 at 09:59; Status DC Morphine Sulfate (Morphine Sulfate) 1 mg PRN Q10MIN PRN IV SEVERE PAIN; Start 12/17/17 at 10:00; Stop 12/18/17 at 09:59; Status DC Ringer's Solution 1,000 ml @ 30 mls/hr Q24H IV Last administered on 12/17/17at 09:53; Start 12/17/17 at 09:53; Stop 12/17/17 at 17:08; Status DC Lidocaine HCl (Xylocaine-Mpf 1% 2ml Vial) 2 ml 1X PRN PRN ID IV START; Start at 10:00; Stop 12/18/17 at 09:59; Status DC Hydromorphone HCl (Dilaudid) 0.5 mg PRN Q10MIN PRN IV SEV PAIN, Second choice; Start 12/17/17 at 10:00; Stop 12/18/17 at 09:59; Status DC Prochlorperazine Edisylate (Compazine) 5 mg PACU PRN PRN IV NAUSEA, MRX1; Start 12/17/17 at 10:00; Stop 12/18/17 at 09:59; Status DC Albuterol Sulfate (Ventolin Neb Soln) 2.5 mg PRN Q4HRS PRN NEB SHORTNESS OF BREATH; Start 12/17/17 at 13:00 Acetaminophen (Tylenol) 500 mg PRN Q6HRS PRN PO MILD PAIN / TEMP Last administered on 12/20/17at 17:12; Start 12/17/17 at 13:00 Dexamethasone Sodium Phosphate (Decadron) 20 mg STK-MED ONCE .ROUTE ; Start at 14:00; Stop 12/17/17 at 14:01; Status DC Famotidine (Pepcid Vial) 20 mg STK-MED ONCE .ROUTE ; Start 12/17/17 at 14:00; Stop 12/17/17 at 14:01; Status DC Ondansetron HCl (Zofran) 4 mg STK-MED ONCE .ROUTE ; Start 12/17/17 at 14:00; Stop 12/17/17 at 14:01; Status DC Propofol 20 ml @ As Directed STK-MED ONCE IV ; Start 12/17/17 at 14:00; Stop at 14:01; Status DC Fentanyl Citrate (Fentanyl 2ml Vial) 100 mcg STK-MED ONCE .ROUTE ; Start at 14:00; Stop 12/17/17 at 14:01; Status DC Midazolam HCl (Versed) 2 mg STK-MED ONCE .ROUTE ; Start 12/17/17 at 14:00; Stop 12/17/17 at 14:02; Status DC Phenylephrine HCl (PHENYLEPHRINE in 0.9% NACL PF) 1 mg STK-MED ONCE IV ; Start 12/17/17 at 15:01; Stop 12/17/17 at 15:02; Status DC Sevoflurane (Ultane) 30 ml STK-MED ONCE IH ; Start 12/17/17 at 15:08; Stop 12/17 at 15:09; Status DC Fentanyl Citrate (Fentanyl 2ml Vial) 100 mcg STK-MED ONCE .ROUTE ; Start at 15:41; Stop 12/17/17 at 15:42; Status DC Morphine Sulfate (Morphine Sulfate) 2 mg PRN Q4HRS PRN IV PAIN Last administered on 12/17/17at 20:06; Start 12/17/17 at 19:45 Iohexol (Omnipaque 300 Mg/ml) 75 ml 1X ONCE IT Last administered on 12/17/17at 22:00; Start 12/17/17 at 22:00; Stop 12/17/17 at 22:01; Status DC Info (CONTRAST GIVEN -- Rx MONITORING) 1 each PRN DAILY PRN MC SEE COMMENTS; Start 12/17/17 at 22:00; Stop 12/19/17 at 21:59; Status DC Enoxaparin Sodium (Lovenox 40mg Syringe) 40 mg 1X ONCE SQ ; Start 12/18/17 at 12:30; Stop 12/18/17 at 12:30; Status DC Docusate Sodium (Colace) 100 mg DAILY PO Last administered on 12/21/17at 08:35; Start 12/19/17 at 09:00 Docusate Sodium (Colace) 100 mg PRN DAILY PRN PO CONSTIPATION (1st Choice); Start 12/18/17 at 12:30 Polyethylene Glycol (miraLAX PACKET) 17 gm 1X ONCE PO Last administered on at 14:41; Start 12/18/17 at 12:30; Stop 12/18/17 at 12:31; Status DC Polyethylene Glycol (miraLAX PACKET) 17 gm DAILY PO Last administered on at 08:35; Start 12/19/17 at 09:00 Magnesium Hydroxide (Milk Of Magnesia) 2,400 mg PRN DAILY PRN PO CONSTIPATION ( 2nd Choice); Start 12/18/17 at 12:30 Bisacodyl (Dulcolax Supp) 10 mg PRN DAILY PRN ME CONSTIPATION; Start 12/18/17 at 12:30 Rivaroxaban (Xarelto) 20 mg DAILYWSUP PO Last administered on 12/20/17at 17:05; Start 12/18/17 at 17:00 Info (Anti-Coagulation Monitoring By Pharmacy) 1 each PRN DAILY PRN MC SEE COMMENTS Last administered on 12/20/17at 14:24; Start 12/18/17 at 12:45 Gabapentin (Neurontin) 300 mg TID PO Last administered on 12/19/17at 14:54; Start 12/18/17 at 14:00; Stop 12/19/17 at 16:42; Status DC Gadobutrol (Gadavist) 9 mmol 1X ONCE IV Last administered on 12/18/17at 14:19; Start 12/18/17 at 14:00; Stop 12/18/17 at 14:01; Status DC Gabapentin (Neurontin) 400 mg TID PO Last administered on 12/21/17at 08:35; Start 12/19/17 at 21:00 Vancomycin HCl 1 gm/Sodium Chloride 250 ml @ 250 mls/hr Q12H IV ; Start at 17:45; Status UNV Vancomycin HCl 2 gm/Sodium Chloride 500 ml @ 250 mls/hr 1X ONCE IV Last administered on 12/20/17at 18:26; Start 12/20/17 at 18:00; Stop 12/20/17 at 19:59 ; Status DC Vancomycin HCl (Vanco Per Pharmacy) 1 each PRN DAILY PRN MC SEE COMMENTS Last administered on 12/20/17at 18:42; Start 12/20/17 at 18:00 Vancomycin HCl 1.5 gm/Sodium Chloride 500 ml @ 250 mls/hr Q12H IV Last administered on 12/21/17at 05:51; Start 12/21/17 at 06:30 Vancomycin HCl (Vancomycin Trough Level) 1 each 1X ONCE MC ; Start 12/22/17 at 06:00; Stop 12/22/17 at 06:01 Active Scripts Active Reported Xarelto (Rivaroxaban) 20 Mg Tablet 20 Mg PO DAILY Vitals/I & O Vital Sign - Last 24 Hours 12/20/17 12/20/17 12/20/17 12/20/17 11:00 13:30 15:00 19:00 Temp 97.9 98.4 98.4 97.9 98.4 98.4 Pulse 84 100 90 Resp 18 18 B/P (MAP) 142/78 (99) 140/95 (110) 139/88 (105) Pulse Ox 92 94 93 O2 Delivery Room Air Room Air Room Air Room Air 12/20/17 12/20/17 12/20/17 12/20/17 19:05 19:07 23:00 23:05 Temp 98.4 98.4 Pulse 90 Resp 16 18 14 B/P (MAP) 139/88 (105) Pulse Ox 94 93 93 O2 Delivery Room Air Room Air Room Air Room Air 12/21/17 12/21/17 12/21/17 12/21/17 03:00 05:49 06:35 07:00 Temp 97.6 97.8 97.6 97.8 Pulse 92 86 Resp 18 14 16 18 B/P (MAP) 147/95 (112) 144/94 (111) Pulse Ox 94 94 94 94 O2 Delivery Room Air Room Air Room Air Room Air 12/21/17 08:39 Temp 97.8 97.8 Pulse 86 Resp 18 B/P (MAP) 144/94 (111) Pulse Ox 94 O2 Delivery Room Air Intake and Output 12/20/17 12/20/17 12/21/17 15:00 23:00 07:00 Intake Total 1200 ml 740 ml Output Total 550 ml 600 ml Balance -550 ml 600 ml 740 ml MANSI SANTOS MD Dec 21, 2017 09:58
[2017-12-21] MEDS ORDERED: ceFAZolin SODIUM 2 GM in IV DEXTROSE 5% 50 ML IV SCH (10:15)
--- NOTE | 2017-12-21 10:29 | PDOC ---
PROGRESS NOTES Chief Complaint Chief Complaint blunt injury to soft tissue anterior LLE leg laceration, with marked blood loss s/p deep sutures on xarelto for contralateral leg DVT incarcerated anxiety d/o, right arm and leg weakness with parathesia, allodynia and tingling pain, CELLULITIS OF WOUND SITE MSSA Left LE hematoma ? Clot Left peroneal vein continue xarelto PLAN D/C IV VANC, BEGIN IV ANCEF ID CONSULT History of Present Illness History of Present Illness s/p surg Dr. Wilson, area looks much improved from admit, less swollen restarted Xarelto for right leg DVT - Dx October 2017, first episode, Creatinine is normal anxiety is better today 12/19 will MRI C-spine showed mult problems, discussed with Dr. Figueroa, probable Meralgia paresthetica Vitals Vitals Vital Signs Date Time Temp Pulse Resp B/P (MAP) Pulse Ox O2 Delivery O2 Flow Rate FiO2 12/21/17 10:20 Room Air 12/21/17 08:39 97.8 86 18 144/94 (111) 94 97.8 Physical Exam General: Alert, Oriented X3, Cooperative, No acute distress, mild distress Heart: Regular rate, Normal S1, Normal S2 Lungs: Clear Abdomen: Normal bowel sounds, Soft Extremities: No cyanosis, Other (LLE with some edema, pulses present, skin edges in wound) Skin: No rashes, No significant lesion, Other (laceration dressed) Labs LABS PROCEDURE: VENOUS LOWER EXTREMITY LEFT Exam performed: Left lower extremity venous Doppler History: Redness and swelling injury to admission patient is on blood thinners for right DVT DATE OF SERVICE: 12/20/2017. COMPARISON: None available TECHNIQUE: Real-time grayscale, color-flow duplex Doppler and spectral analysis of the left lower extremity deep venous system was performed and images are obtained. FINDINGS: The study somewhat limited due to diffuse swelling, thereby causing limited compressibility. There is a possible filling defect in the left proximal peroneal vein seen only in 1 of the 2 paired peroneal veins. The remainder left lower extremity deep venous system appears patent and compressible. No intraluminal clot is identified. Note is made of large left groin lymph nodes. IMPRESSION: Questionable clot in the left peroneal vein. Electronically signed by: Ellen Hickman MD (12/20/2017 11:03 PM) [facility] HITESH RANDHAWA MD ORDERED: ANAER/AEROB/GS Procedure Result ANAEROBIC-AEROBIC CULTURE Preliminary Preliminary report ANAEROBIC RES 1 Preliminary Comment No anaerobes recovered in 48 hours. AEROBIC CULT Final Final report AEROBIC RES 1 Final Staphylococcus aureus 2+ Based on susceptibility to oxacillin this isolate would be susceptible to: *Penicillinase-stable penicillins, such as: Cloxacillin, Dicloxacillin, Nafcillin *Beta-lactam combination agents, such as: Amoxicillin-clavulanic acid, Ampicillin-sulbactam, Piperacillin-tazobactam *Oral cephems, such as: Cefaclor, Cefdinir, Cefpodoxime, Cefprozil, Cefuroxime, Cephalexin, Loracarbef *Parenteral cephems, such as: Cefazolin, Cefepime, Cefotaxime, Cefotetan, Ceftaroline, Ceftizoxime, Ceftriaxone, Cefuroxime *Carbapenems, such as: Doripenem, Ertapenem, Imipenem, Meropenem ANTIMICROBIAL SUSCEPTIBILITY Final Comment Laboratory Tests Test 12/21/17 05:30 White Blood Count 8.5 x10^3/uL (4.0-11.0) Red Blood Count 4.71 x10^6/uL (4.30-5.70) Hemoglobin 15.0 g/dL (13.0-17.5) Hematocrit 42.6 % (39.0-53.0) Mean Corpuscular Volume 90 fL (79-100) Mean Corpuscular Hemoglobin 32 pg (25-35) Mean Corpuscular Hemoglobin Concent 35 g/dL (31-37) Red Cell Distribution Width 14.4 % (11.5-14.5) Platelet Count 232 x10^3/uL (140-400) Neutrophils (%) (Auto) 72 % (31-73) Lymphocytes (%) (Auto) 12 % (24-48) Monocytes (%) (Auto) 9 % (0-9) Eosinophils (%) (Auto) 6 % (0-3) Basophils (%) (Auto) 1 % (0-3) Neutrophils # (Auto) 6.1 x10^3uL (1.8-7.7) Lymphocytes # (Auto) 1.1 x10^3/uL (1.0-4.8) Monocytes # (Auto) 0.8 x10^3/uL (0.0-1.1) Eosinophils # (Auto) 0.5 x10^3/uL (0.0-0.7) Basophils # (Auto) 0.1 x10^3/uL (0.0-0.2) Sodium Level 140 mmol/L (136-145) Potassium Level 4.6 mmol/L (3.5-5.1) Chloride Level 103 mmol/L (98-107) Carbon Dioxide Level 30 mmol/L (21-32) Anion Gap 7 (6-14) Blood Urea Nitrogen 15 mg/dL (8-26) Creatinine 1.0 mg/dL (0.7-1.3) Estimated GFR (Cockcroft-Gault) 78.5 BUN/Creatinine Ratio 15 (6-20) Glucose Level 95 mg/dL (70-99) Calcium Level 8.9 mg/dL (8.5-10.1) Total Bilirubin 0.4 mg/dL (0.2-1.0) Aspartate Amino Transf (AST/SGOT) 13 U/L (15-37) Alanine Aminotransferase (ALT/SGPT) 29 U/L (16-63) Alkaline Phosphatase 71 U/L (46-116) Total Protein 7.0 g/dL (6.4-8.2) Albumin 3.3 g/dL (3.4-5.0) Albumin/Globulin Ratio 0.9 (1.0-1.7) Assessment and Plan Assessmemt and Plan Problems Medical Problems: (1) Contusion of left lower leg, initial encounter Status: Acute (2) Laceration of left lower leg without foreign body Status: Acute Comment Review of Relevant I have reviewed the following items jono (where applicable) has been applied. Labs Laboratory Tests Test 12/20/17 04:50 12/21/17 05:30 White Blood Count 8.6 x10^3/uL (4.0-11.0) 8.5 x10^3/uL (4.0-11.0) Red Blood Count 4.58 x10^6/uL (4.30-5.70) 4.71 x10^6/uL (4.30-5.70) Hemoglobin 14.5 g/dL (13.0-17.5) 15.0 g/dL (13.0-17.5) Hematocrit 41.6 % (39.0-53.0) 42.6 % (39.0-53.0) Mean Corpuscular Volume 91 fL (79-100) 90 fL (79-100) Mean Corpuscular Hemoglobin 32 pg (25-35) 32 pg (25-35) Mean Corpuscular Hemoglobin Concent 35 g/dL (31-37) 35 g/dL (31-37) Red Cell Distribution Width 14.6 % (11.5-14.5) 14.4 % (11.5-14.5) Platelet Count 231 x10^3/uL (140-400) 232 x10^3/uL (140-400) Neutrophils (%) (Auto) 67 % (31-73) 72 % (31-73) Lymphocytes (%) (Auto) 18 % (24-48) 12 % (24-48) Monocytes (%) (Auto) 9 % (0-9) 9 % (0-9) Eosinophils (%) (Auto) 6 % (0-3) 6 % (0-3) Basophils (%) (Auto) 1 % (0-3) 1 % (0-3) Neutrophils # (Auto) 5.8 x10^3uL (1.8-7.7) 6.1 x10^3uL (1.8-7.7) Lymphocytes # (Auto) 1.5 x10^3/uL (1.0-4.8) 1.1 x10^3/uL (1.0-4.8) Monocytes # (Auto) 0.7 x10^3/uL (0.0-1.1) 0.8 x10^3/uL (0.0-1.1) Eosinophils # (Auto) 0.5 x10^3/uL (0.0-0.7) 0.5 x10^3/uL (0.0-0.7) Basophils # (Auto) 0.1 x10^3/uL (0.0-0.2) 0.1 x10^3/uL (0.0-0.2) Sodium Level 140 mmol/L (136-145) 140 mmol/L (136-145) Potassium Level 4.2 mmol/L (3.5-5.1) 4.6 mmol/L (3.5-5.1) Chloride Level 103 mmol/L (98-107) 103 mmol/L (98-107) Carbon Dioxide Level 31 mmol/L (21-32) 30 mmol/L (21-32) Anion Gap 6 (6-14) 7 (6-14) Blood Urea Nitrogen 14 mg/dL (8-26) 15 mg/dL (8-26) Creatinine 1.0 mg/dL (0.7-1.3) 1.0 mg/dL (0.7-1.3) Estimated GFR (Cockcroft-Gault) 78.5 78.5 BUN/Creatinine Ratio 14 (6-20) 15 (6-20) Glucose Level 94 mg/dL (70-99) 95 mg/dL (70-99) Calcium Level 9.3 mg/dL (8.5-10.1) 8.9 mg/dL (8.5-10.1) Total Bilirubin 0.3 mg/dL (0.2-1.0) 0.4 mg/dL (0.2-1.0) Aspartate Amino Transf (AST/SGOT) 11 U/L (15-37) 13 U/L (15-37) Alanine Aminotransferase (ALT/SGPT) 29 U/L (16-63) 29 U/L (16-63) Alkaline Phosphatase 79 U/L (46-116) 71 U/L (46-116) Total Protein 6.7 g/dL (6.4-8.2) 7.0 g/dL (6.4-8.2) Albumin 3.2 g/dL (3.4-5.0) 3.3 g/dL (3.4-5.0) Albumin/Globulin Ratio 0.9 (1.0-1.7) 0.9 (1.0-1.7) Laboratory Tests Test 12/21/17 05:30 White Blood Count 8.5 x10^3/uL (4.0-11.0) Red Blood Count 4.71 x10^6/uL (4.30-5.70) Hemoglobin 15.0 g/dL (13.0-17.5) Hematocrit 42.6 % (39.0-53.0) Mean Corpuscular Volume 90 fL (79-100) Mean Corpuscular Hemoglobin 32 pg (25-35) Mean Corpuscular Hemoglobin Concent 35 g/dL (31-37) Red Cell Distribution Width 14.4 % (11.5-14.5) Platelet Count 232 x10^3/uL (140-400) Neutrophils (%) (Auto) 72 % (31-73) Lymphocytes (%) (Auto) 12 % (24-48) Monocytes (%) (Auto) 9 % (0-9) Eosinophils (%) (Auto) 6 % (0-3) Basophils (%) (Auto) 1 % (0-3) Neutrophils # (Auto) 6.1 x10^3uL (1.8-7.7) Lymphocytes # (Auto) 1.1 x10^3/uL (1.0-4.8) Monocytes # (Auto) 0.8 x10^3/uL (0.0-1.1) Eosinophils # (Auto) 0.5 x10^3/uL (0.0-0.7) Basophils # (Auto) 0.1 x10^3/uL (0.0-0.2) Sodium Level 140 mmol/L (136-145) Potassium Level 4.6 mmol/L (3.5-5.1) Chloride Level 103 mmol/L (98-107) Carbon Dioxide Level 30 mmol/L (21-32) Anion Gap 7 (6-14) Blood Urea Nitrogen 15 mg/dL (8-26) Creatinine 1.0 mg/dL (0.7-1.3) Estimated GFR (Cockcroft-Gault) 78.5 BUN/Creatinine Ratio 15 (6-20) Glucose Level 95 mg/dL (70-99) Calcium Level 8.9 mg/dL (8.5-10.1) Total Bilirubin 0.4 mg/dL (0.2-1.0) Aspartate Amino Transf (AST/SGOT) 13 U/L (15-37) Alanine Aminotransferase (ALT/SGPT) 29 U/L (16-63) Alkaline Phosphatase 71 U/L (46-116) Total Protein 7.0 g/dL (6.4-8.2) Albumin 3.3 g/dL (3.4-5.0) Albumin/Globulin Ratio 0.9 (1.0-1.7) Microbiology 12/17/17 Anaerobic/Aerobic Culture - Preliminary, Resulted 12/17/17 Anaerobic Culture Result 1 (BO) - Preliminary, Resulted 12/17/17 Aerobic Culture - Final, Resulted 12/17/17 Aerobic Culture Result 1 (BO) - Final, Resulted 12/17/17 Antimicrobic Susceptibility - Final, Resulted 12/17/17 Gram Stain - Final, Resulted 12/17/17 Gram Stain Result 1 (BO) - Final, Resulted 12/17/17 Gram Stain Result 2 (BO) - Final, Resulted Medications Current Medications Lidocaine/ Epinephrine (LIDOCAINE 1%-EPI 1:100,000 Multi-Dose) 20 ml 1X ONCE INJ Last administered on 12/15/17at 14:56; Start 12/15/17 at 11:45; Stop at 12:56; Status DC Fentanyl Citrate (Fentanyl 2ml Vial) 50 mcg 1X ONCE IV Last administered on at 13:02; Start 12/15/17 at 12:30; Stop 12/15/17 at 12:56; Status DC Gelatin (Gelfoam Size 100) 1 each STK-MED ONCE .ROUTE ; Start 12/15/17 at 13:58 ; Stop 12/15/17 at 13:59; Status DC Gelatin (Gelfoam Size 100) 1 each 1X ONCE TP Last administered on 12/15/17at 14:06; Start 12/15/17 at 14:15; Stop 12/15/17 at 14:16; Status DC Lorazepam (Ativan) 1 mg 1X ONCE PO Last administered on 12/15/17at 16:16; Start 12/15/17 at 16:00; Stop 12/15/17 at 16:01; Status DC Ondansetron HCl (Zofran) 4 mg PRN Q8HRS PRN IV NAUSEA/VOMITING; Start 12/15/17 at 16:00; Stop 12/16/17 at 15:59; Status DC Fentanyl Citrate (Fentanyl 2ml Vial) 50 mcg PRN Q2HR PRN IV PAIN Last administered on 12/17/17at 08:51; Start 12/15/17 at 16:00; Stop 12/17/17 at 15:58 ; Status DC Oxycodone/ Acetaminophen (Percocet 5/325) 1 tab PRN Q4HRS PRN PO MODERATE- SEVERE PAIN Last administered on 12/21/17at 10:20; Start 12/15/17 at 17:30 Lorazepam (Ativan) 0.5 mg PRN Q8HRS PRN PO ANXIETY / AGITATION Last administered on 12/20/17at 23:07; Start 12/15/17 at 17:30 Influenza Virus Vaccine (Afluria Trivalent 5025-8284 Syringe) 0.5 ml ONCE ONCE VAX IM Last administered on 12/16/17at 11:20; Start 12/16/17 at 09:00; Stop at 09:01; Status DC Info (Do NOT chart on this placeholder) 1 each PRN 1X PRN MC SEE COMMENTS; Start 12/16/17 at 03:45; Status Cancel Ondansetron HCl (Zofran) 4 mg PRN Q6HRS PRN IV NAUSEA/VOMITING; Start 12/17/17 at 10:00; Stop 12/18/17 at 09:59; Status DC Fentanyl Citrate (Fentanyl 2ml Vial) 25 mcg PRN Q5MIN PRN IV MILD PAIN; Start 12/17/17 at 10:00; Stop 12/18/17 at 09:59; Status DC Fentanyl Citrate (Fentanyl 2ml Vial) 50 mcg PRN Q5MIN PRN IV MODERATE TO SEVERE PAIN Last administered on 12/17/17at 16:10; Start 12/17/17 at 10:00; Stop 12/18/17 at 09:59; Status DC Morphine Sulfate (Morphine Sulfate) 1 mg PRN Q10MIN PRN IV SEVERE PAIN; Start 12/17/17 at 10:00; Stop 12/18/17 at 09:59; Status DC Ringer's Solution 1,000 ml @ 30 mls/hr Q24H IV Last administered on 12/17/17at 09:53; Start 12/17/17 at 09:53; Stop 12/17/17 at 17:08; Status DC Lidocaine HCl (Xylocaine-Mpf 1% 2ml Vial) 2 ml 1X PRN PRN ID IV START; Start at 10:00; Stop 12/18/17 at 09:59; Status DC Hydromorphone HCl (Dilaudid) 0.5 mg PRN Q10MIN PRN IV SEV PAIN, Second choice; Start 12/17/17 at 10:00; Stop 12/18/17 at 09:59; Status DC Prochlorperazine Edisylate (Compazine) 5 mg PACU PRN PRN IV NAUSEA, MRX1; Start 12/17/17 at 10:00; Stop 12/18/17 at 09:59; Status DC Albuterol Sulfate (Ventolin Neb Soln) 2.5 mg PRN Q4HRS PRN NEB SHORTNESS OF BREATH; Start 12/17/17 at 13:00 Acetaminophen (Tylenol) 500 mg PRN Q6HRS PRN PO MILD PAIN / TEMP Last administered on 12/20/17at 17:12; Start 12/17/17 at 13:00 Dexamethasone Sodium Phosphate (Decadron) 20 mg STK-MED ONCE .ROUTE ; Start at 14:00; Stop 12/17/17 at 14:01; Status DC Famotidine (Pepcid Vial) 20 mg STK-MED ONCE .ROUTE ; Start 12/17/17 at 14:00; Stop 12/17/17 at 14:01; Status DC Ondansetron HCl (Zofran) 4 mg STK-MED ONCE .ROUTE ; Start 12/17/17 at 14:00; Stop 12/17/17 at 14:01; Status DC Propofol 20 ml @ As Directed STK-MED ONCE IV ; Start 12/17/17 at 14:00; Stop at 14:01; Status DC Fentanyl Citrate (Fentanyl 2ml Vial) 100 mcg STK-MED ONCE .ROUTE ; Start at 14:00; Stop 12/17/17 at 14:01; Status DC Midazolam HCl (Versed) 2 mg STK-MED ONCE .ROUTE ; Start 12/17/17 at 14:00; Stop 12/17/17 at 14:02; Status DC Phenylephrine HCl (PHENYLEPHRINE in 0.9% NACL PF) 1 mg STK-MED ONCE IV ; Start 12/17/17 at 15:01; Stop 12/17/17 at 15:02; Status DC Sevoflurane (Ultane) 30 ml STK-MED ONCE IH ; Start 12/17/17 at 15:08; Stop 12/17 at 15:09; Status DC Fentanyl Citrate (Fentanyl 2ml Vial) 100 mcg STK-MED ONCE .ROUTE ; Start at 15:41; Stop 12/17/17 at 15:42; Status DC Morphine Sulfate (Morphine Sulfate) 2 mg PRN Q4HRS PRN IV PAIN Last administered on 12/17/17at 20:06; Start 12/17/17 at 19:45 Iohexol (Omnipaque 300 Mg/ml) 75 ml 1X ONCE IT Last administered on 12/17/17at 22:00; Start 12/17/17 at 22:00; Stop 12/17/17 at 22:01; Status DC Info (CONTRAST GIVEN -- Rx MONITORING) 1 each PRN DAILY PRN MC SEE COMMENTS; Start 12/17/17 at 22:00; Stop 12/19/17 at 21:59; Status DC Enoxaparin Sodium (Lovenox 40mg Syringe) 40 mg 1X ONCE SQ ; Start 12/18/17 at 12:30; Stop 12/18/17 at 12:30; Status DC Docusate Sodium (Colace) 100 mg DAILY PO Last administered on 12/21/17at 08:35; Start 12/19/17 at 09:00 Docusate Sodium (Colace) 100 mg PRN DAILY PRN PO CONSTIPATION (1st Choice); Start 12/18/17 at 12:30 Polyethylene Glycol (miraLAX PACKET) 17 gm 1X ONCE PO Last administered on at 14:41; Start 12/18/17 at 12:30; Stop 12/18/17 at 12:31; Status DC Polyethylene Glycol (miraLAX PACKET) 17 gm DAILY PO Last administered on at 08:35; Start 12/19/17 at 09:00 Magnesium Hydroxide (Milk Of Magnesia) 2,400 mg PRN DAILY PRN PO CONSTIPATION ( 2nd Choice); Start 12/18/17 at 12:30 Bisacodyl (Dulcolax Supp) 10 mg PRN DAILY PRN [place] CONSTIPATION; Start 12/18/17 at 12:30 Rivaroxaban (Xarelto) 20 mg DAILYWSUP PO Last administered on 12/20/17at 17:05; Start 12/18/17 at 17:00 Info (Anti-Coagulation Monitoring By Pharmacy) 1 each PRN DAILY PRN MC SEE COMMENTS Last administered on 12/20/17at 14:24; Start 12/18/17 at 12:45 Gabapentin (Neurontin) 300 mg TID PO Last administered on 12/19/17at 14:54; Start 12/18/17 at 14:00; Stop 12/19/17 at 16:42; Status DC Gadobutrol (Gadavist) 9 mmol 1X ONCE IV Last administered on 12/18/17at 14:19; Start 12/18/17 at 14:00; Stop 12/18/17 at 14:01; Status DC Gabapentin (Neurontin) 400 mg TID PO Last administered on 12/21/17at 08:35; Start 12/19/17 at 21:00 Vancomycin HCl 1 gm/Sodium Chloride 250 ml @ 250 mls/hr Q12H IV ; Start at 17:45; Status UNV Vancomycin HCl 2 gm/Sodium Chloride 500 ml @ 250 mls/hr 1X ONCE IV Last administered on 12/20/17at 18:26; Start 12/20/17 at 18:00; Stop 12/20/17 at 19:59 ; Status DC Vancomycin HCl (Vanco Per Pharmacy) 1 each PRN DAILY PRN MC SEE COMMENTS Last administered on 12/20/17at 18:42; Start 12/20/17 at 18:00; Stop 12/21/17 at 10:25 ; Status DC Vancomycin HCl 1.5 gm/Sodium Chloride 500 ml @ 250 mls/hr Q12H IV Last administered on 12/21/17at 05:51; Start 12/21/17 at 06:30; Stop 12/21/17 at 10:25 ; Status DC Vancomycin HCl (Vancomycin Trough Level) 1 each 1X ONCE MC ; Start 12/22/17 at 06:00; Stop 12/22/17 at 06:01 Cefazolin Sodium 2 gm/Dextrose 50 ml @ 100 mls/hr Q8HRS IV ; Start 12/21/17 at 10:15; Status UNV Active Scripts Active Reported Xarelto (Rivaroxaban) 20 Mg Tablet 20 Mg PO DAILY Vitals/I & O Vital Sign - Last 24 Hours 12/20/17 12/20/17 12/20/17 12/20/17 11:00 13:30 15:00 19:00 Temp 97.9 98.4 98.4 97.9 98.4 98.4 Pulse 84 100 90 Resp 18 18 18 B/P (MAP) 142/78 (99) 140/95 (110) 139/88 (105) Pulse Ox 92 94 93 O2 Delivery Room Air Room Air Room Air Room Air 12/20/17 12/20/17 12/20/17 12/20/17 19:05 19:07 23:00 23:05 Temp 98.4 98.4 Pulse 90 Resp 16 18 14 B/P (MAP) 139/88 (105) Pulse Ox 94 93 93 O2 Delivery Room Air Room Air Room Air Room Air 12/21/17 12/21/17 12/21/17 12/21/17 03:00 05:49 06:35 07:00 Temp 97.6 97.8 97.6 97.8 Pulse 92 86 Resp 18 14 16 18 B/P (MAP) 147/95 (112) 144/94 (111) Pulse Ox 94 94 94 94 O2 Delivery Room Air Room Air Room Air Room Air 12/21/17 12/21/17 08:39 10:20 Temp 97.8 97.8 Pulse 86 Resp 18 B/P (MAP) 144/94 (111) Pulse Ox 94 O2 Delivery Room Air Room Air Intake and Output 12/20/17 12/20/17 12/21/17 15:00 23:00 07:00 Intake Total 1200 ml 740 ml Output Total 550 ml 600 ml Balance -550 ml 600 ml 740 ml KAREN LÓPEZ MD Dec 21, 2017 10:29
--- NOTE | 2017-12-21 10:33 | PDOC ---
Infectious Disease Note Vital Sign Vital Signs Vital Signs Date Time Temp Pulse Resp B/P (MAP) Pulse Ox O2 Delivery O2 Flow Rate FiO2 12/21/17 08:39 97.8 86 18 144/94 (111) 94 Room Air 97.8 Labs Lab Laboratory Tests Test 12/21/17 05:30 White Blood Count 8.5 x10^3/uL (4.0-11.0) Red Blood Count 4.71 x10^6/uL (4.30-5.70) Hemoglobin 15.0 g/dL (13.0-17.5) Hematocrit 42.6 % (39.0-53.0) Mean Corpuscular Volume 90 fL (79-100) Mean Corpuscular Hemoglobin 32 pg (25-35) Mean Corpuscular Hemoglobin Concent 35 g/dL (31-37) Red Cell Distribution Width 14.4 % (11.5-14.5) Platelet Count 232 x10^3/uL (140-400) Neutrophils (%) (Auto) 72 % (31-73) Lymphocytes (%) (Auto) 12 % (24-48) Monocytes (%) (Auto) 9 % (0-9) Eosinophils (%) (Auto) 6 % (0-3) Basophils (%) (Auto) 1 % (0-3) Neutrophils # (Auto) 6.1 x10^3uL (1.8-7.7) Lymphocytes # (Auto) 1.1 x10^3/uL (1.0-4.8) Monocytes # (Auto) 0.8 x10^3/uL (0.0-1.1) Eosinophils # (Auto) 0.5 x10^3/uL (0.0-0.7) Basophils # (Auto) 0.1 x10^3/uL (0.0-0.2) Sodium Level 140 mmol/L (136-145) Potassium Level 4.6 mmol/L (3.5-5.1) Chloride Level 103 mmol/L (98-107) Carbon Dioxide Level 30 mmol/L (21-32) Anion Gap 7 (6-14) Blood Urea Nitrogen 15 mg/dL (8-26) Creatinine 1.0 mg/dL (0.7-1.3) Estimated GFR (Cockcroft-Gault) 78.5 BUN/Creatinine Ratio 15 (6-20) Glucose Level 95 mg/dL (70-99) Calcium Level 8.9 mg/dL (8.5-10.1) Total Bilirubin 0.4 mg/dL (0.2-1.0) Aspartate Amino Transf (AST/SGOT) 13 U/L (15-37) Alanine Aminotransferase (ALT/SGPT) 29 U/L (16-63) Alkaline Phosphatase 71 U/L (46-116) Total Protein 7.0 g/dL (6.4-8.2) Albumin 3.3 g/dL (3.4-5.0) Albumin/Globulin Ratio 0.9 (1.0-1.7) Micro Staphylococcus aureus 4+ Based on susceptibility to oxacillin this isolate would be susceptible to: *Penicillinase-stable penicillins, such as: Cloxacillin, Dicloxacillin, Nafcillin *Beta-lactam combination agents, such as: Amoxicillin-clavulanic acid, Ampicillin-sulbactam, Piperacillin-tazobactam *Oral cephems, such as: Cefaclor, Cefdinir, Cefpodoxime, Cefprozil, Cefuroxime, Cephalexin, Loracarbef *Parenteral cephems, such as: Cefazolin, Cefepime, Cefotaxime, Cefotetan, Ceftaroline, Ceftizoxime, Ceftriaxone, Cefuroxime *Carbapenems, such as: Doripenem, Ertapenem, Imipenem, Meropenem ANTIMICROBIAL SUSCEPTIBILITY Final Comment CONTINUED ON NEXT PAGE RUN DATE: 12/20/17 PAGE 2 RUN TIME: [address] [facility] [address] [place] [address] Chencho Sifuentes M.D., Mechanical Engineering Teacher SPEC: [id number] PATIENT: NICCI BULL [id number] ( Continued) Procedure Result ANTIMICROBIAL SUSCEPTIBILITY Final (continued) S = Susceptible; I = Intermediate; R = Resistant P = Positive; N = Negative MICS are expressed in micrograms per mL Antibiotic RSLT#1 RSLT#2 RSLT#3 RSLT#4 Ciprofloxacin S<=0.5 Clindamycin R =R Erythromycin R>=8 Gentamicin S<=0.5 Levofloxacin S =0.25 Linezolid S =2 Moxifloxacin S<=0.25 Oxacillin S =0.5 Penicillin R>=0.5 Quinupristin/Dalfopristin S<=0.25 Rifampin S<=0.5 Tetracycline S<=1 Trimethoprim/Sulfa S<=10 Vancomycin S<=0.5 Microbiology 12/17/17 Anaerobic/Aerobic Culture - Preliminary, Resulted 12/17/17 Anaerobic Culture Result 1 (BO) - Preliminary, Resulted 12/17/17 Aerobic Culture - Final, Resulted 12/17/17 Aerobic Culture Result 1 (BO) - Final, Resulted 12/17/17 Antimicrobic Susceptibility - Final, Resulted 12/17/17 Gram Stain - Final, Resulted 12/17/17 Gram Stain Result 1 (BO) - Final, Resulted 12/17/17 Gram Stain Result 2 (BO) - Final, Resulted Objective Assessment LLE infection MSSA Left LE hematoma ? Clot Left peroneal vein Plan Plan of Care D/c vanc Begin Cefazolin Cont elevation Await further Ortho xiomy' F/u labs Thank you # [phone] CHARLES MASON MD Dec 21, 2017 10:33
--- NOTE | 2017-12-21 13:26 | CONS ---
DATE OF CONSULTATION: 12/21/2017 INFECTIOUS DISEASE CONSULTATION LOCATION: The patient is in room 516. REQUESTING PHYSICIAN: Dr. Wilson. REASON FOR CONSULTATION: Leg infection. HISTORY OF PRESENT ILLNESS: The patient is a 52-year-old gentleman, currently incarcerated, who states that he was getting down from his bunk when he struck his left leg on a metal chair. He did have a history of a right lower extremity DVT and was taking Xarelto and essentially had excessive bleeding. He was brought to [facility] and was found to have a hematoma of his left lower extremity. He was taken to the operating room on 12/17/[address] Wilson and underwent evacuation of the hematoma and cultures were obtained. They now returned positive for Staph and I have been consulted. Currently, he is on vancomycin. The patient is lying in bed. No fever, chills, sweats, nausea, vomiting, diarrhea, shortness of air, dysuria, frequency or urgency. He does have a little occasional abdominal cramps. Denies any rashes, but has a little bit increasing left leg pain this morning postprocedure. He did undergo a lower extremity ultrasound last evening and it is now showing a questionable clot in the left peroneal vein. PAST MEDICAL HISTORY: Positive for previous back surgery, history of previous right knee surgery and a history of appendectomy. 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 REVIEW OF SYSTEMS: Otherwise negative. ALLERGIES: No known drug allergies. SOCIAL HISTORY: He is incarcerated. No alcohol or drug use recently. FAMILY HISTORY: Noncontributory. CURRENT MEDICATIONS: Include IV vancomycin, Colace, Neurontin, Ativan and Xarelto. Other meds are available and reviewed in the chart. PHYSICAL EXAMINATION: VITAL SIGNS: He is afebrile. Temperature is 97.8, pulse 86, respirations 18, blood pressure 124/94 and satting 94% on room air. CONSTITUTIONAL: He is cooperative. He is in no acute distress. HEENT: Pupils are equal and reactive. He has normal conjunctivae. Oral cavity, pharynx is clear. NECK: Supple, with good range of motion. LUNGS: Clear to auscultation bilaterally. HEART: S1, S2. ABDOMEN: Soft, nontender and nondistended. He has got positive bowel sounds and a well-healed scar. EXTREMITIES: Without clubbing or cyanosis. Left lower extremity has a fair amount of erythema on the anterior aspect. Incision is clean. There is some tenderness at the lower end of the area of erythema. There is no gross bloody drainage. SKIN: Otherwise warm to touch. NEUROLOGIC: Nonfocal. PSYCHIATRIC: Affect is appropriate. LABORATORY DATA: White count 8.5, hemoglobin 15, platelets 232,000, neutrophils 72 and lymphs 12. Creatinine of 1. AST 13. Cultures again positive for MSSA from 12/17/2017. Lower extremity ultrasound reviewed in the history of present illness. He is consulted for left lower extremity infection. IMPRESSION: 1. Left lower extremity infection. 2. Methicillin-susceptible Staphylococcus aureus. 3. Left lower extremity hematoma. 4. Clot in the left peroneal vein. RECOMMENDATIONS: We will discontinue vancomycin and begin cefazolin. Continue elevation. Await further Ortho evaluation. Follow up labs. Thank you for allowing me to see to participate in the patient's care. Should you have any further questions, please do not hesitate to contact me. CHARLES MASON MD DR: BLU/perez JOB#: [id number] / [id number]
[2017-12-21] MEDS: ANTI-COAG MONITOR BY PHARMACY. MC PRN (14:15)
[2017-12-21] MEDS: RIVAROXABAN 10 MG TABLET. PO SCH (16:50)
--- NOTE | 2017-12-21 17:25 | PDOC ---
PROGRESS NOTES Subjective Subjective Problems overnight: Left leg is sore hurts to walk Objective Vital Signs Vital Signs Date Time Temp Pulse Resp B/P (MAP) Pulse Ox O2 Delivery O2 Flow Rate FiO2 12/21/17 11:43 Room Air 12/21/17 11:00 98.3 92 18 141/97 (112) 93 98.3 12/17/17 16:40 10.0 Physical Exam On examination there is really been no reaccumulation of his hematoma he does have bruising throughout the area surrounding the laceration. The distal portion of the "v" in the upper skin flap is somewhat dusky but adjacent tissue appears viable. No odor or purulence is detected. He is able to flex and extend the ankle and toes with minimal discomfort Labs Laboratory Tests Test 12/20/17 04:50 12/21/17 05:30 White Blood Count 8.6 x10^3/uL (4.0-11.0) 8.5 x10^3/uL (4.0-11.0) Red Blood Count 4.58 x10^6/uL (4.30-5.70) 4.71 x10^6/uL (4.30-5.70) Hemoglobin 14.5 g/dL (13.0-17.5) 15.0 g/dL (13.0-17.5) Hematocrit 41.6 % (39.0-53.0) 42.6 % (39.0-53.0) Mean Corpuscular Volume 91 fL (79-100) 90 fL (79-100) Mean Corpuscular Hemoglobin 32 pg (25-35) 32 pg (25-35) Mean Corpuscular Hemoglobin Concent 35 g/dL (31-37) 35 g/dL (31-37) Red Cell Distribution Width 14.6 % (11.5-14.5) 14.4 % (11.5-14.5) Platelet Count 231 x10^3/uL (140-400) 232 x10^3/uL (140-400) Neutrophils (%) (Auto) 67 % (31-73) 72 % (31-73) Lymphocytes (%) (Auto) 18 % (24-48) 12 % (24-48) Monocytes (%) (Auto) 9 % (0-9) 9 % (0-9) Eosinophils (%) (Auto) 6 % (0-3) 6 % (0-3) Basophils (%) (Auto) 1 % (0-3) 1 % (0-3) Neutrophils # (Auto) 5.8 x10^3uL (1.8-7.7) 6.1 x10^3uL (1.8-7.7) Lymphocytes # (Auto) 1.5 x10^3/uL (1.0-4.8) 1.1 x10^3/uL (1.0-4.8) Monocytes # (Auto) 0.7 x10^3/uL (0.0-1.1) 0.8 x10^3/uL (0.0-1.1) Eosinophils # (Auto) 0.5 x10^3/uL (0.0-0.7) 0.5 x10^3/uL (0.0-0.7) Basophils # (Auto) 0.1 x10^3/uL (0.0-0.2) 0.1 x10^3/uL (0.0-0.2) Sodium Level 140 mmol/L (136-145) 140 mmol/L (136-145) Potassium Level 4.2 mmol/L (3.5-5.1) 4.6 mmol/L (3.5-5.1) Chloride Level 103 mmol/L (98-107) 103 mmol/L (98-107) Carbon Dioxide Level 31 mmol/L (21-32) 30 mmol/L (21-32) Anion Gap 6 (6-14) 7 (6-14) Blood Urea Nitrogen 14 mg/dL (8-26) 15 mg/dL (8-26) Creatinine 1.0 mg/dL (0.7-1.3) 1.0 mg/dL (0.7-1.3) Estimated GFR (Cockcroft-Gault) 78.5 78.5 BUN/Creatinine Ratio 14 (6-20) 15 (6-20) Glucose Level 94 mg/dL (70-99) 95 mg/dL (70-99) Calcium Level 9.3 mg/dL (8.5-10.1) 8.9 mg/dL (8.5-10.1) Total Bilirubin 0.3 mg/dL (0.2-1.0) 0.4 mg/dL (0.2-1.0) Aspartate Amino Transf (AST/SGOT) 11 U/L (15-37) 13 U/L (15-37) Alanine Aminotransferase (ALT/SGPT) 29 U/L (16-63) 29 U/L (16-63) Alkaline Phosphatase 79 U/L (46-116) 71 U/L (46-116) Total Protein 6.7 g/dL (6.4-8.2) 7.0 g/dL (6.4-8.2) Albumin 3.2 g/dL (3.4-5.0) 3.3 g/dL (3.4-5.0) Albumin/Globulin Ratio 0.9 (1.0-1.7) 0.9 (1.0-1.7) Laboratory Tests Test 12/21/17 05:30 White Blood Count 8.5 x10^3/uL (4.0-11.0) Red Blood Count 4.71 x10^6/uL (4.30-5.70) Hemoglobin 15.0 g/dL (13.0-17.5) Hematocrit 42.6 % (39.0-53.0) Mean Corpuscular Volume 90 fL (79-100) Mean Corpuscular Hemoglobin 32 pg (25-35) Mean Corpuscular Hemoglobin Concent 35 g/dL (31-37) Red Cell Distribution Width 14.4 % (11.5-14.5) Platelet Count 232 x10^3/uL (140-400) Neutrophils (%) (Auto) 72 % (31-73) Lymphocytes (%) (Auto) 12 % (24-48) Monocytes (%) (Auto) 9 % (0-9) Eosinophils (%) (Auto) 6 % (0-3) Basophils (%) (Auto) 1 % (0-3) Neutrophils # (Auto) 6.1 x10^3uL (1.8-7.7) Lymphocytes # (Auto) 1.1 x10^3/uL (1.0-4.8) Monocytes # (Auto) 0.8 x10^3/uL (0.0-1.1) Eosinophils # (Auto) 0.5 x10^3/uL (0.0-0.7) Basophils # (Auto) 0.1 x10^3/uL (0.0-0.2) Sodium Level 140 mmol/L (136-145) Potassium Level 4.6 mmol/L (3.5-5.1) Chloride Level 103 mmol/L (98-107) Carbon Dioxide Level 30 mmol/L (21-32) Anion Gap 7 (6-14) Blood Urea Nitrogen 15 mg/dL (8-26) Creatinine 1.0 mg/dL (0.7-1.3) Estimated GFR (Cockcroft-Gault) 78.5 BUN/Creatinine Ratio 15 (6-20) Glucose Level 95 mg/dL (70-99) Calcium Level 8.9 mg/dL (8.5-10.1) Total Bilirubin 0.4 mg/dL (0.2-1.0) Aspartate Amino Transf (AST/SGOT) 13 U/L (15-37) Alanine Aminotransferase (ALT/SGPT) 29 U/L (16-63) Alkaline Phosphatase 71 U/L (46-116) Total Protein 7.0 g/dL (6.4-8.2) Albumin 3.3 g/dL (3.4-5.0) Albumin/Globulin Ratio 0.9 (1.0-1.7) Assessment Assessment POD# [], S/P [irrigation debridement left leg hematoma] Plan Plan of Care Cultures show sensitive staph aureus, appreciate infectious disease consult He certainly does have surrounding bruising and duskiness of the overlying skin flap however no gross purulence or findings in my view that require additional debridement at this time Recommend continued wound care to facilitate granulation and of the underlying area continued antibiotics as directed LISA BRUMFIELD MD Dec 21, 2017 17:25
[2017-12-21] MEDS: LACTOBACILLUS RHAMNOSUS GG 1 CAPSULE. PO SCH (20:59)
[2017-12-22] MEDS: oxyCODONE/APAP 5/325 1 TAB TABLET PO PRN ×5 (00:47→21:15)
[2017-12-22 03:00] VITALS: BP 126/87
[2017-12-22 07:00] VITALS: BP 121/92
[2017-12-22] MEDS: DOCUSATE SODIUM 100 MG CAPSULE. PO SCH (08:45)
[2017-12-22] MEDS: POLYETHYLENE GLYCOL 3350 17 GM PACKET. PO SCH (08:45)
[2017-12-22] MEDS: LACTOBACILLUS RHAMNOSUS GG 1 CAPSULE. PO SCH ×2 (08:45→21:11)
[2017-12-22] MEDS: GABAPENTIN 400 MG CAPSULE. PO SCH ×3 (08:45→21:11)
--- NOTE | 2017-12-22 09:23 | PDOC ---
Infectious Disease Note Subjective Subjective some better but still pain No F/C/S/n/V but occ cramps No SOA/Rash ROS ROS o/w neg Vital Sign Vital Signs Vital Signs Date Time Temp Pulse Resp B/P (MAP) Pulse Ox O2 Delivery O2 Flow Rate FiO2 12/22/17 08:35 96 Room Air 12/22/17 07:00 98.1 90 18 121/92 (102) 98.1 Physical Exam PHYSICAL EXAM CONSTITUTIONAL: He is cooperative. He is in no acute distress. HEENT: Pupils are equal and reactive. He has normal conjunctivae. Oral cavity, pharynx is clear. NECK: Supple, with good range of motion. LUNGS: Clear to auscultation bilaterally. HEART: S1, S2. ABDOMEN: Soft, nontender and nondistended. He has got positive bowel sounds and a well-healed scar. EXTREMITIES: Without clubbing or cyanosis. Left lower extremity has a fair amount of erythema on the anterior aspect but impproving. Incision is clean. There is some tenderness at the lower end of the area of erythema but less. There is no gross bloody drainage. SKIN: Otherwise warm to touch. NEUROLOGIC: Nonfocal. PSYCHIATRIC: Affect is appropriate. Labs Micro Staphylococcus aureus 4+ Based on susceptibility to oxacillin this isolate would be susceptible to: *Penicillinase-stable penicillins, such as: Cloxacillin, Dicloxacillin, Nafcillin *Beta-lactam combination agents, such as: Amoxicillin-clavulanic acid, Ampicillin-sulbactam, Piperacillin-tazobactam *Oral cephems, such as: Cefaclor, Cefdinir, Cefpodoxime, Cefprozil, Cefuroxime, Cephalexin, Loracarbef *Parenteral cephems, such as: Cefazolin, Cefepime, Cefotaxime, Cefotetan, Ceftaroline, Ceftizoxime, Ceftriaxone, Cefuroxime *Carbapenems, such as: Doripenem, Ertapenem, Imipenem, Meropenem ANTIMICROBIAL SUSCEPTIBILITY Final Comment CONTINUED ON NEXT PAGE RUN DATE: 12/20/17 PAGE 2 RUN TIME: 1911 [facility] [address] [place] [address] Chencho Sifuentes M.D., Rn Resource Nurse SPEC: [id number] PATIENT: NICCI BULL [id number] ( Continued) Procedure Result ANTIMICROBIAL SUSCEPTIBILITY Final (continued) S = Susceptible; I = Intermediate; R = Resistant P = Positive; N = Negative MICS are expressed in micrograms per mL Antibiotic RSLT#1 RSLT#2 RSLT#3 RSLT#4 Ciprofloxacin S<=0.5 Clindamycin R =R Erythromycin R>=8 Gentamicin S<=0.5 Levofloxacin S =0.25 Linezolid S =2 Moxifloxacin S<=0.25 Oxacillin S =0.5 Penicillin R>=0.5 Quinupristin/Dalfopristin S<=0.25 Rifampin S<=0.5 Tetracycline S<=1 Trimethoprim/Sulfa S<=10 Vancomycin S<=0.5 Microbiology 12/17/17 Anaerobic/Aerobic Culture - Preliminary, Resulted 12/17/17 Anaerobic Culture Result 1 (BO) - Preliminary, Resulted 12/17/17 Aerobic Culture - Final, Resulted 12/17/17 Aerobic Culture Result 1 (BO) - Final, Resulted 12/17/17 Antimicrobic Susceptibility - Final, Resulted 12/17/17 Gram Stain - Final, Resulted 12/17/17 Gram Stain Result 1 (BO) - Final, Resulted 12/17/17 Gram Stain Result 2 (BO) - Final, Resulted Objective Assessment LLE infection MSSA Left LE hematoma ? Clot Left peroneal vein Plan Plan of Care Cont Cefazolin - change to po in next day or so Cont elevation heme eval - recurrent clots and ? family history F/u labs CHARLES MASON MD Dec 22, 2017 09:23
--- NOTE | 2017-12-22 09:50 | PDOC ---
PROGRESS NOTES Chief Complaint Chief Complaint blunt injury to soft tissue anterior LLE leg laceration, with marked blood loss s/p deep sutures on xarelto for contralateral leg DVT incarcerated anxiety d/o, right arm and leg weakness with parathesia, allodynia and tingling pain, CELLULITIS OF WOUND SITE LEFT LEG, MARKED MSSA Left LE hematoma Clot Left peroneal vein continue xarelto PLAN D/C IV VANC, BEGIN IV ANCEF ID FOLLOWING History of Present Illness History of Present Illness s/p surg Dr. Wilson, area looks much improved from admit, less swollen restarted Xarelto for right leg DVT - Dx October 2017, first episode, Creatinine is normal anxiety is better today 12/19 will MRI C-spine showed mult problems, discussed with Dr. Figueroa, probable Meralgia paresthetica Vitals Vitals Vital Signs Date Time Temp Pulse Resp B/P (MAP) Pulse Ox O2 Delivery O2 Flow Rate FiO2 12/22/17 08:35 96 Room Air 12/22/17 07:00 98.1 90 18 121/92 (102) 98.1 Physical Exam Physical Exam CONSTITUTIONAL: He is cooperative. He is in no acute distress. HEENT: Pupils are equal and reactive. He has normal conjunctivae. Oral cavity, pharynx is clear. NECK: Supple, with good range of motion. LUNGS: Clear to auscultation bilaterally. HEART: S1, S2. ABDOMEN: Soft, nontender and nondistended. He has got positive bowel sounds and a well-healed scar. EXTREMITIES: Without clubbing or cyanosis. Left lower extremity has a fair amount of erythema on the anterior aspect. Incision is clean. There is some tenderness at the lower end of the area of erythema. There is no gross bloody drainage. SKIN: Otherwise warm to touch. NEUROLOGIC: Nonfocal. PSYCHIATRIC: Affect is appropriate. General: Alert, Oriented X3, Cooperative, No acute distress, mild distress Heart: Regular rate, Normal S1, Normal S2 Lungs: Clear Abdomen: Normal bowel sounds, Soft Extremities: No cyanosis, Other (LLE with some edema, pulses present, skin edges in wound) Skin: No rashes, No significant lesion, Other (laceration dressed, REMOVED STILL LOOKS ANGRY, SWOLLEN) Assessment and Plan Assessmemt and Plan Problems Medical Problems: (1) Contusion of left lower leg, initial encounter Status: Acute (2) Laceration of left lower leg without foreign body Status: Acute Comment Review of Relevant I have reviewed the following items jono (where applicable) has been applied. Labs Laboratory Tests Test 12/21/17 05:30 White Blood Count 8.5 x10^3/uL (4.0-11.0) Red Blood Count 4.71 x10^6/uL (4.30-5.70) Hemoglobin 15.0 g/dL (13.0-17.5) Hematocrit 42.6 % (39.0-53.0) Mean Corpuscular Volume 90 fL (79-100) Mean Corpuscular Hemoglobin 32 pg (25-35) Mean Corpuscular Hemoglobin Concent 35 g/dL (31-37) Red Cell Distribution Width 14.4 % (11.5-14.5) Platelet Count 232 x10^3/uL (140-400) Neutrophils (%) (Auto) 72 % (31-73) Lymphocytes (%) (Auto) 12 % (24-48) Monocytes (%) (Auto) 9 % (0-9) Eosinophils (%) (Auto) 6 % (0-3) Basophils (%) (Auto) 1 % (0-3) Neutrophils # (Auto) 6.1 x10^3uL (1.8-7.7) Lymphocytes # (Auto) 1.1 x10^3/uL (1.0-4.8) Monocytes # (Auto) 0.8 x10^3/uL (0.0-1.1) Eosinophils # (Auto) 0.5 x10^3/uL (0.0-0.7) Basophils # (Auto) 0.1 x10^3/uL (0.0-0.2) Sodium Level 140 mmol/L (136-145) Potassium Level 4.6 mmol/L (3.5-5.1) Chloride Level 103 mmol/L (98-107) Carbon Dioxide Level 30 mmol/L (21-32) Anion Gap 7 (6-14) Blood Urea Nitrogen 15 mg/dL (8-26) Creatinine 1.0 mg/dL (0.7-1.3) Estimated GFR (Cockcroft-Gault) 78.5 BUN/Creatinine Ratio 15 (6-20) Glucose Level 95 mg/dL (70-99) Calcium Level 8.9 mg/dL (8.5-10.1) Total Bilirubin 0.4 mg/dL (0.2-1.0) Aspartate Amino Transf (AST/SGOT) 13 U/L (15-37) Alanine Aminotransferase (ALT/SGPT) 29 U/L (16-63) Alkaline Phosphatase 71 U/L (46-116) Total Protein 7.0 g/dL (6.4-8.2) Albumin 3.3 g/dL (3.4-5.0) Albumin/Globulin Ratio 0.9 (1.0-1.7) Microbiology 12/17/17 Anaerobic/Aerobic Culture - Preliminary, Resulted 12/17/17 Anaerobic Culture Result 1 (BO) - Preliminary, Resulted 12/17/17 Aerobic Culture - Final, Resulted 12/17/17 Aerobic Culture Result 1 (BO) - Final, Resulted 12/17/17 Antimicrobic Susceptibility - Final, Resulted 12/17/17 Gram Stain - Final, Resulted 12/17/17 Gram Stain Result 1 (BO) - Final, Resulted 12/17/17 Gram Stain Result 2 (BO) - Final, Resulted Medications Current Medications Lidocaine/ Epinephrine (LIDOCAINE 1%-EPI 1:100,000 Multi-Dose) 20 ml 1X ONCE INJ Last administered on 12/15/17at 14:56; Start 12/15/17 at 11:45; Stop at 12:56; Status DC Fentanyl Citrate (Fentanyl 2ml Vial) 50 mcg 1X ONCE IV Last administered on at 13:02; Start 12/15/17 at 12:30; Stop 12/15/17 at 12:56; Status DC Gelatin (Gelfoam Size 100) 1 each STK-MED ONCE .ROUTE ; Start 12/15/17 at 13:58 ; Stop 12/15/17 at 13:59; Status DC Gelatin (Gelfoam Size 100) 1 each 1X ONCE TP Last administered on 12/15/17at 14:06; Start 12/15/17 at 14:15; Stop 12/15/17 at 14:16; Status DC Lorazepam (Ativan) 1 mg 1X ONCE PO Last administered on 12/15/17at 16:16; Start 12/15/17 at 16:00; Stop 12/15/17 at 16:01; Status DC Ondansetron HCl (Zofran) 4 mg PRN Q8HRS PRN IV NAUSEA/VOMITING; Start 12/15/17 at 16:00; Stop 12/16/17 at 15:59; Status DC Fentanyl Citrate (Fentanyl 2ml Vial) 50 mcg PRN Q2HR PRN IV PAIN Last administered on 12/17/17at 08:51; Start 12/15/17 at 16:00; Stop 12/17/17 at 15:58 ; Status DC Oxycodone/ Acetaminophen (Percocet 5/325) 1 tab PRN Q4HRS PRN PO MODERATE- SEVERE PAIN Last administered on 12/22/17at 05:20; Start 12/15/17 at 17:30 Lorazepam (Ativan) 0.5 mg PRN Q8HRS PRN PO ANXIETY / AGITATION Last administered on 12/20/17at 23:07; Start 12/15/17 at 17:30 Influenza Virus Vaccine (Afluria Trivalent [id number] Syringe) 0.5 ml ONCE ONCE VAX IM Last administered on 12/16/17at 11:20; Start 12/16/17 at 09:00; Stop at 09:01; Status DC Info (Do NOT chart on this placeholder) 1 each PRN 1X PRN MC SEE COMMENTS; Start 12/16/17 at 03:45; Status Cancel Ondansetron HCl (Zofran) 4 mg PRN Q6HRS PRN IV NAUSEA/VOMITING; Start 12/17/17 at 10:00; Stop 12/18/17 at 09:59; Status DC Fentanyl Citrate (Fentanyl 2ml Vial) 25 mcg PRN Q5MIN PRN IV MILD PAIN; Start 12/17/17 at 10:00; Stop 12/18/17 at 09:59; Status DC Fentanyl Citrate (Fentanyl 2ml Vial) 50 mcg PRN Q5MIN PRN IV MODERATE TO SEVERE PAIN Last administered on 12/17/17at 16:10; Start 12/17/17 at 10:00; Stop 12/18/17 at 09:59; Status DC Morphine Sulfate (Morphine Sulfate) 1 mg PRN Q10MIN PRN IV SEVERE PAIN; Start 12/17/17 at 10:00; Stop 12/18/17 at 09:59; Status DC Ringer's Solution 1,000 ml @ 30 mls/hr Q24H IV Last administered on 12/17/17at 09:53; Start 12/17/17 at 09:53; Stop 12/17/17 at 17:08; Status DC Lidocaine HCl (Xylocaine-Mpf 1% 2ml Vial) 2 ml 1X PRN PRN ID IV START; Start at 10:00; Stop 12/18/17 at 09:59; Status DC Hydromorphone HCl (Dilaudid) 0.5 mg PRN Q10MIN PRN IV SEV PAIN, Second choice; Start 12/17/17 at 10:00; Stop 12/18/17 at 09:59; Status DC Prochlorperazine Edisylate (Compazine) 5 mg PACU PRN PRN IV NAUSEA, MRX1; Start 12/17/17 at 10:00; Stop 12/18/17 at 09:59; Status DC Albuterol Sulfate (Ventolin Neb Soln) 2.5 mg PRN Q4HRS PRN NEB SHORTNESS OF BREATH; Start 12/17/17 at 13:00 Acetaminophen (Tylenol) 500 mg PRN Q6HRS PRN PO MILD PAIN / TEMP Last administered on 12/20/17at 17:12; Start 12/17/17 at 13:00 Dexamethasone Sodium Phosphate (Decadron) 20 mg STK-MED ONCE .ROUTE ; Start at 14:00; Stop 12/17/17 at 14:01; Status DC Famotidine (Pepcid Vial) 20 mg STK-MED ONCE .ROUTE ; Start 12/17/17 at 14:00; Stop 12/17/17 at 14:01; Status DC Ondansetron HCl (Zofran) 4 mg STK-MED ONCE .ROUTE ; Start 12/17/17 at 14:00; Stop 12/17/17 at 14:01; Status DC Propofol 20 ml @ As Directed STK-MED ONCE IV ; Start 12/17/17 at 14:00; Stop at 14:01; Status DC Fentanyl Citrate (Fentanyl 2ml Vial) 100 mcg STK-MED ONCE .ROUTE ; Start at 14:00; Stop 12/17/17 at 14:01; Status DC Midazolam HCl (Versed) 2 mg STK-MED ONCE .ROUTE ; Start 12/17/17 at 14:00; Stop 12/17/17 at 14:02; Status DC Phenylephrine HCl (PHENYLEPHRINE in 0.9% NACL PF) 1 mg STK-MED ONCE IV ; Start 12/17/17 at 15:01; Stop 12/17/17 at 15:02; Status DC Sevoflurane (Ultane) 30 ml STK-MED ONCE IH ; Start 12/17/17 at 15:08; Stop 12/17 at 15:09; Status DC Fentanyl Citrate (Fentanyl 2ml Vial) 100 mcg STK-MED ONCE .ROUTE ; Start at 15:41; Stop 12/17/17 at 15:42; Status DC Morphine Sulfate (Morphine Sulfate) 2 mg PRN Q4HRS PRN IV PAIN Last administered on 12/17/17at 20:06; Start 12/17/17 at 19:45 Iohexol (Omnipaque 300 Mg/ml) 75 ml 1X ONCE IT Last administered on 12/17/17at 22:00; Start 12/17/17 at 22:00; Stop 12/17/17 at 22:01; Status DC Info (CONTRAST GIVEN -- Rx MONITORING) 1 each PRN DAILY PRN MC SEE COMMENTS; Start 12/17/17 at 22:00; Stop 12/19/17 at 21:59; Status DC Enoxaparin Sodium (Lovenox 40mg Syringe) 40 mg 1X ONCE SQ ; Start 12/18/17 at 12:30; Stop 12/18/17 at 12:30; Status DC Docusate Sodium (Colace) 100 mg DAILY PO Last administered on 12/22/17at 08:45; Start 12/19/17 at 09:00 Docusate Sodium (Colace) 100 mg PRN DAILY PRN PO CONSTIPATION (1st Choice); Start 12/18/17 at 12:30 Polyethylene Glycol (miraLAX PACKET) 17 gm 1X ONCE PO Last administered on at 14:41; Start 12/18/17 at 12:30; Stop 12/18/17 at 12:31; Status DC Polyethylene Glycol (miraLAX PACKET) 17 gm DAILY PO Last administered on at 08:45; Start 12/19/17 at 09:00 Magnesium Hydroxide (Milk Of Magnesia) 2,400 mg PRN DAILY PRN PO CONSTIPATION ( 2nd Choice); Start 12/18/17 at 12:30 Bisacodyl (Dulcolax Supp) 10 mg PRN DAILY PRN UT CONSTIPATION; Start 12/18/17 at 12:30 Rivaroxaban (Xarelto) 20 mg DAILYWSUP PO Last administered on 12/21/17at 16:50; Start 12/18/17 at 17:00 Info (Anti-Coagulation Monitoring By Pharmacy) 1 each PRN DAILY PRN MC SEE COMMENTS Last administered on 12/21/17at 14:15; Start 12/18/17 at 12:45 Gabapentin (Neurontin) 300 mg TID PO Last administered on 12/19/17at 14:54; Start 12/18/17 at 14:00; Stop 12/19/17 at 16:42; Status DC Gadobutrol (Gadavist) 9 mmol 1X ONCE IV Last administered on 12/18/17at 14:19; Start 12/18/17 at 14:00; Stop 12/18/17 at 14:01; Status DC Gabapentin (Neurontin) 400 mg TID PO Last administered on 12/22/17at 08:45; Start 12/19/17 at 21:00 Vancomycin HCl 1 gm/Sodium Chloride 250 ml @ 250 mls/hr Q12H IV ; Start at 17:45; Status UNV Vancomycin HCl 2 gm/Sodium Chloride 500 ml @ 250 mls/hr 1X ONCE IV Last administered on 12/20/17at 18:26; Start 12/20/17 at 18:00; Stop 12/20/17 at 19:59 ; Status DC Vancomycin HCl (Vanco Per Pharmacy) 1 each PRN DAILY PRN MC SEE COMMENTS Last administered on 12/20/17at 18:42; Start 12/20/17 at 18:00; Stop 12/21/17 at 10:25 ; Status DC Vancomycin HCl 1.5 gm/Sodium Chloride 500 ml @ 250 mls/hr Q12H IV Last administered on 12/21/17at 05:51; Start 12/21/17 at 06:30; Stop 12/21/17 at 10:25 ; Status DC Vancomycin HCl (Vancomycin Trough Level) 1 each 1X ONCE MC ; Start 12/22/17 at 06:00; Stop 12/22/17 at 06:00; Status DC Cefazolin Sodium 2 gm/Dextrose 50 ml @ 100 mls/hr Q8HRS IV ; Start 12/21/17 at 10:15; Status UNV Cefazolin Sodium/ Dextrose 50 ml @ 100 mls/hr Q8HRS IV Last administered on at 05:14; Start 12/21/17 at 11:00 Lactobacillus Rhamnosus (Culturelle) 1 cap BID PO Last administered on at 08:45; Start 12/21/17 at 21:00 Active Scripts Active Reported Xarelto (Rivaroxaban) 20 Mg Tablet 20 Mg PO DAILY Vitals/I & O Vital Sign - Last 24 Hours 12/21/17 12/21/17 12/21/17 12/21/17 10:20 11:00 15:00 19:00 Temp 98.3 98.6 98.4 98.3 98.6 98.4 Pulse 92 97 98 Resp 18 18 18 B/P (MAP) 141/97 (112) 123/87 (99) 141/89 (106) Pulse Ox 93 94 98 O2 Delivery Room Air Room Air Room Air Room Air 12/21/17 12/21/17 12/21/17 12/22/17 19:13 19:22 23:00 00:47 Temp 98.1 98.1 Pulse 94 Resp 18 B/P (MAP) 133/88 (103) Pulse Ox 94 94 94 O2 Delivery Room Air Room Air Room Air Room Air 12/22/17 12/22/17 12/22/17 12/22/17 03:00 05:20 06:18 07:00 Temp 97.7 98.1 97.7 98.1 Pulse 83 90 Resp 18 18 B/P (MAP) 126/87 (100) 121/92 (102) Pulse Ox 93 94 94 97 O2 Delivery Room Air Room Air Room Air Room Air 12/22/17 08:35 Pulse Ox 96 O2 Delivery Room Air Intake and Output 12/21/17 12/21/17 12/22/17 15:00 23:00 07:00 Intake Total 790 ml 530 ml 1710 ml Output Total 700 ml 2350 ml 1100 ml Balance 90 ml -1820 ml 610 ml KAREN LÓPEZ MD Dec 22, 2017 09:50
[2017-12-22 11:00] VITALS: BP 137/89
--- NOTE | 2017-12-22 12:31 | PDOC ---
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 Plan Continue Neurontin Wound care, left LE.. Treat medical diseases. I get a flavor of nonorganic overlay, but we could consider outpatient EMG for completeness. Okay for discharge any time from neurological perspective Subjective He says numbness is better today Objective Vital Signs Date Time Temp Pulse Resp B/P (MAP) Pulse Ox O2 Delivery O2 Flow Rate FiO2 12/22/17 11:01 18 96 Room Air 10.0 12/22/17 11:00 97.5 97 137/89 (105) 97.5 Intake and Output 12/22/17 07:00 Intake Total 3030 ml Output Total 4150 ml Balance -1120 ml Intake Oral 2380 ml IV Total 650 ml Output Urine Total 4150 ml PHYSICAL EXAM Alert. Oriented to time, place and person. PERRL. EOMI. CN: no focal findings. Muscle tone: normal. Muscle strength: 5/5 DTR: 2+ Plantar reflex: flexor Gait: not examined. Sensory exam: Normal No cerebellar signs elicited. Review of Relevant I have reviewed the following items jono (where applicable) has been applied. Labs Laboratory Tests Test 12/21/17 05:30 White Blood Count 8.5 x10^3/uL (4.0-11.0) Red Blood Count 4.71 x10^6/uL (4.30-5.70) Hemoglobin 15.0 g/dL (13.0-17.5) Hematocrit 42.6 % (39.0-53.0) Mean Corpuscular Volume 90 fL (79-100) Mean Corpuscular Hemoglobin 32 pg (25-35) Mean Corpuscular Hemoglobin Concent 35 g/dL (31-37) Red Cell Distribution Width 14.4 % (11.5-14.5) Platelet Count 232 x10^3/uL (140-400) Neutrophils (%) (Auto) 72 % (31-73) Lymphocytes (%) (Auto) 12 % (24-48) Monocytes (%) (Auto) 9 % (0-9) Eosinophils (%) (Auto) 6 % (0-3) Basophils (%) (Auto) 1 % (0-3) Neutrophils # (Auto) 6.1 x10^3uL (1.8-7.7) Lymphocytes # (Auto) 1.1 x10^3/uL (1.0-4.8) Monocytes # (Auto) 0.8 x10^3/uL (0.0-1.1) Eosinophils # (Auto) 0.5 x10^3/uL (0.0-0.7) Basophils # (Auto) 0.1 x10^3/uL (0.0-0.2) Sodium Level 140 mmol/L (136-145) Potassium Level 4.6 mmol/L (3.5-5.1) Chloride Level 103 mmol/L (98-107) Carbon Dioxide Level 30 mmol/L (21-32) Anion Gap 7 (6-14) Blood Urea Nitrogen 15 mg/dL (8-26) Creatinine 1.0 mg/dL (0.7-1.3) Estimated GFR (Cockcroft-Gault) 78.5 BUN/Creatinine Ratio 15 (6-20) Glucose Level 95 mg/dL (70-99) Calcium Level 8.9 mg/dL (8.5-10.1) Total Bilirubin 0.4 mg/dL (0.2-1.0) Aspartate Amino Transf (AST/SGOT) 13 U/L (15-37) Alanine Aminotransferase (ALT/SGPT) 29 U/L (16-63) Alkaline Phosphatase 71 U/L (46-116) Total Protein 7.0 g/dL (6.4-8.2) Albumin 3.3 g/dL (3.4-5.0) Albumin/Globulin Ratio 0.9 (1.0-1.7) Microbiology 12/17/17 Anaerobic/Aerobic Culture - Preliminary, Resulted 12/17/17 Anaerobic Culture Result 1 (BO) - Preliminary, Resulted 12/17/17 Aerobic Culture - Final, Resulted 12/17/17 Aerobic Culture Result 1 (BO) - Final, Resulted 12/17/17 Antimicrobic Susceptibility - Final, Resulted 12/17/17 Gram Stain - Final, Resulted 12/17/17 Gram Stain Result 1 (BO) - Final, Resulted 12/17/17 Gram Stain Result 2 (BO) - Final, Resulted Medications Current Medications Lidocaine/ Epinephrine (LIDOCAINE 1%-EPI 1:100,000 Multi-Dose) 20 ml 1X ONCE INJ Last administered on 12/15/17at 14:56; Start 12/15/17 at 11:45; Stop at 12:56; Status DC Fentanyl Citrate (Fentanyl 2ml Vial) 50 mcg 1X ONCE IV Last administered on at 13:02; Start 12/15/17 at 12:30; Stop 12/15/17 at 12:56; Status DC Gelatin (Gelfoam Size 100) 1 each STK-MED ONCE .ROUTE ; Start 12/15/17 at 13:58 ; Stop 12/15/17 at 13:59; Status DC Gelatin (Gelfoam Size 100) 1 each 1X ONCE TP Last administered on 12/15/17at 14:06; Start 12/15/17 at 14:15; Stop 12/15/17 at 14:16; Status DC Lorazepam (Ativan) 1 mg 1X ONCE PO Last administered on 12/15/17at 16:16; Start 12/15/17 at 16:00; Stop 12/15/17 at 16:01; Status DC Ondansetron HCl (Zofran) 4 mg PRN Q8HRS PRN IV NAUSEA/VOMITING; Start 12/15/17 at 16:00; Stop 12/16/17 at 15:59; Status DC Fentanyl Citrate (Fentanyl 2ml Vial) 50 mcg PRN Q2HR PRN IV PAIN Last administered on 12/17/17at 08:51; Start 12/15/17 at 16:00; Stop 12/17/17 at 15:58 ; Status DC Oxycodone/ Acetaminophen (Percocet 5/325) 1 tab PRN Q4HRS PRN PO MODERATE- SEVERE PAIN Last administered on 12/22/17at 10:01; Start 12/15/17 at 17:30 Lorazepam (Ativan) 0.5 mg PRN Q8HRS PRN PO ANXIETY / AGITATION Last administered on 12/20/17at 23:07; Start 12/15/17 at 17:30 Influenza Virus Vaccine (Afluria Trivalent [id number] Syringe) 0.5 ml ONCE ONCE VAX IM Last administered on 12/16/17at 11:20; Start 12/16/17 at 09:00; Stop at 09:01; Status DC Info (Do NOT chart on this placeholder) 1 each PRN 1X PRN MC SEE COMMENTS; Start 12/16/17 at 03:45; Status Cancel Ondansetron HCl (Zofran) 4 mg PRN Q6HRS PRN IV NAUSEA/VOMITING; Start 12/17/17 at 10:00; Stop 12/18/17 at 09:59; Status DC Fentanyl Citrate (Fentanyl 2ml Vial) 25 mcg PRN Q5MIN PRN IV MILD PAIN; Start 12/17/17 at 10:00; Stop 12/18/17 at 09:59; Status DC Fentanyl Citrate (Fentanyl 2ml Vial) 50 mcg PRN Q5MIN PRN IV MODERATE TO SEVERE PAIN Last administered on 12/17/17at 16:10; Start 12/17/17 at 10:00; Stop 12/18/17 at 09:59; Status DC Morphine Sulfate (Morphine Sulfate) 1 mg PRN Q10MIN PRN IV SEVERE PAIN; Start 12/17/17 at 10:00; Stop 12/18/17 at 09:59; Status DC Ringer's Solution 1,000 ml @ 30 mls/hr Q24H IV Last administered on 12/17/17at 09:53; Start 12/17/17 at 09:53; Stop 12/17/17 at 17:08; Status DC Lidocaine HCl (Xylocaine-Mpf 1% 2ml Vial) 2 ml 1X PRN PRN ID IV START; Start at 10:00; Stop 12/18/17 at 09:59; Status DC Hydromorphone HCl (Dilaudid) 0.5 mg PRN Q10MIN PRN IV SEV PAIN, Second choice; Start 12/17/17 at 10:00; Stop 12/18/17 at 09:59; Status DC Prochlorperazine Edisylate (Compazine) 5 mg PACU PRN PRN IV NAUSEA, MRX1; Start 12/17/17 at 10:00; Stop 12/18/17 at 09:59; Status DC Albuterol Sulfate (Ventolin Neb Soln) 2.5 mg PRN Q4HRS PRN NEB SHORTNESS OF BREATH; Start 12/17/17 at 13:00 Acetaminophen (Tylenol) 500 mg PRN Q6HRS PRN PO MILD PAIN / TEMP Last administered on 12/20/17at 17:12; Start 12/17/17 at 13:00 Dexamethasone Sodium Phosphate (Decadron) 20 mg STK-MED ONCE .ROUTE ; Start at 14:00; Stop 12/17/17 at 14:01; Status DC Famotidine (Pepcid Vial) 20 mg STK-MED ONCE .ROUTE ; Start 12/17/17 at 14:00; Stop 12/17/17 at 14:01; Status DC Ondansetron HCl (Zofran) 4 mg STK-MED ONCE .ROUTE ; Start 12/17/17 at 14:00; Stop 12/17/17 at 14:01; Status DC Propofol 20 ml @ As Directed STK-MED ONCE IV ; Start 12/17/17 at 14:00; Stop at 14:01; Status DC Fentanyl Citrate (Fentanyl 2ml Vial) 100 mcg STK-MED ONCE .ROUTE ; Start at 14:00; Stop 12/17/17 at 14:01; Status DC Midazolam HCl (Versed) 2 mg STK-MED ONCE .ROUTE ; Start 12/17/17 at 14:00; Stop 12/17/17 at 14:02; Status DC Phenylephrine HCl (PHENYLEPHRINE in 0.9% NACL PF) 1 mg STK-MED ONCE IV ; Start 12/17/17 at 15:01; Stop 12/17/17 at 15:02; Status DC Sevoflurane (Ultane) 30 ml STK-MED ONCE IH ; Start 12/17/17 at 15:08; Stop 12/17 at 15:09; Status DC Fentanyl Citrate (Fentanyl 2ml Vial) 100 mcg STK-MED ONCE .ROUTE ; Start at 15:41; Stop 12/17/17 at 15:42; Status DC Morphine Sulfate (Morphine Sulfate) 2 mg PRN Q4HRS PRN IV PAIN Last administered on 12/17/17at 20:06; Start 12/17/17 at 19:45 Iohexol (Omnipaque 300 Mg/ml) 75 ml 1X ONCE IT Last administered on 12/17/17at 22:00; Start 12/17/17 at 22:00; Stop 12/17/17 at 22:01; Status DC Info (CONTRAST GIVEN -- Rx MONITORING) 1 each PRN DAILY PRN MC SEE COMMENTS; Start 12/17/17 at 22:00; Stop 12/19/17 at 21:59; Status DC Enoxaparin Sodium (Lovenox 40mg Syringe) 40 mg 1X ONCE SQ ; Start 12/18/17 at 12:30; Stop 12/18/17 at 12:30; Status DC Docusate Sodium (Colace) 100 mg DAILY PO Last administered on 12/22/17at 08:45; Start 12/19/17 at 09:00 Docusate Sodium (Colace) 100 mg PRN DAILY PRN PO CONSTIPATION (1st Choice); Start 12/18/17 at 12:30 Polyethylene Glycol (miraLAX PACKET) 17 gm 1X ONCE PO Last administered on at 14:41; Start 12/18/17 at 12:30; Stop 12/18/17 at 12:31; Status DC Polyethylene Glycol (miraLAX PACKET) 17 gm DAILY PO Last administered on at 08:45; Start 12/19/17 at 09:00 Magnesium Hydroxide (Milk Of Magnesia) 2,400 mg PRN DAILY PRN PO CONSTIPATION ( 2nd Choice); Start 12/18/17 at 12:30 Bisacodyl (Dulcolax Supp) 10 mg PRN DAILY PRN CO CONSTIPATION; Start 12/18/17 at 12:30 Rivaroxaban (Xarelto) 20 mg DAILYWSUP PO Last administered on 12/21/17at 16:50; Start 12/18/17 at 17:00 Info (Anti-Coagulation Monitoring By Pharmacy) 1 each PRN DAILY PRN MC SEE COMMENTS Last administered on 12/21/17at 14:15; Start 12/18/17 at 12:45 Gabapentin (Neurontin) 300 mg TID PO Last administered on 12/19/17at 14:54; Start 12/18/17 at 14:00; Stop 12/19/17 at 16:42; Status DC Gadobutrol (Gadavist) 9 mmol 1X ONCE IV Last administered on 12/18/17at 14:19; Start 12/18/17 at 14:00; Stop 12/18/17 at 14:01; Status DC Gabapentin (Neurontin) 400 mg TID PO Last administered on 12/22/17at 08:45; Start 12/19/17 at 21:00 Vancomycin HCl 1 gm/Sodium Chloride 250 ml @ 250 mls/hr Q12H IV ; Start at 17:45; Status UNV Vancomycin HCl 2 gm/Sodium Chloride 500 ml @ 250 mls/hr 1X ONCE IV Last administered on 12/20/17at 18:26; Start 12/20/17 at 18:00; Stop 12/20/17 at 19:59 ; Status DC Vancomycin HCl (Vanco Per Pharmacy) 1 each PRN DAILY PRN MC SEE COMMENTS Last administered on 12/20/17at 18:42; Start 12/20/17 at 18:00; Stop 12/21/17 at 10:25 ; Status DC Vancomycin HCl 1.5 gm/Sodium Chloride 500 ml @ 250 mls/hr Q12H IV Last administered on 12/21/17at 05:51; Start 12/21/17 at 06:30; Stop 12/21/17 at 10:25 ; Status DC Vancomycin HCl (Vancomycin Trough Level) 1 each 1X ONCE MC ; Start 12/22/17 at 06:00; Stop 12/22/17 at 06:00; Status DC Cefazolin Sodium 2 gm/Dextrose 50 ml @ 100 mls/hr Q8HRS IV ; Start 12/21/17 at 10:15; Status UNV Cefazolin Sodium/ Dextrose 50 ml @ 100 mls/hr Q8HRS IV Last administered on at 05:14; Start 12/21/17 at 11:00 Lactobacillus Rhamnosus (Culturelle) 1 cap BID PO Last administered on at 08:45; Start 12/21/17 at 21:00 Active Scripts Active Reported Xarelto (Rivaroxaban) 20 Mg Tablet 20 Mg PO DAILY Vitals/I & O Vital Sign - Last 24 Hours 12/21/17 12/21/17 12/21/17 12/21/17 15:00 19:00 19:13 19:22 Temp 98.6 98.4 98.6 98.4 Pulse 97 98 Resp 18 18 B/P (MAP) 123/87 (99) 141/89 (106) Pulse Ox 94 98 94 O2 Delivery Room Air Room Air Room Air Room Air 9/12/22/17 12/22/17 12/22/17 23:00 00:47 03:00 05:20 Temp 98.1 97.7 98.1 97.7 Pulse 94 83 Resp 18 18 B/P (MAP) 133/88 (103) 126/87 (100) Pulse Ox 94 94 93 94 O2 Delivery Room Air Room Air Room Air Room Air 12/22/17 12/22/17 12/22/17 12/22/17 07:00 08:00 08:35 10:01 Temp 98.1 98.1 Pulse 90 Resp 18 18 B/P (MAP) 121/92 (102) Pulse Ox 97 96 96 O2 Delivery Room Air Room Air Room Air Room Air O2 Flow Rate 10.0 10.0 12/22/17 12/22/17 11:00 11:01 Temp 97.5 97.5 Pulse 97 Resp 18 18 B/P (MAP) 137/89 (105) Pulse Ox 95 96 O2 Delivery Room Air Room Air O2 Flow Rate 10.0 Intake and Output 12/21/17 12/21/17 12/22/17 15:00 23:00 07:00 Intake Total 790 ml 530 ml 1710 ml Output Total 700 ml 2350 ml 1100 ml Balance 90 ml -1820 ml 610 ml MANSI SANTOS MD Dec 22, 2017 12:31
[2017-12-22] MEDS: ACETAMINOPHEN 500 MG TABLET PO PRN (13:57)
[2017-12-22 15:00] VITALS: BP 138/87
[2017-12-22] MEDS: ANTI-COAG MONITOR BY PHARMACY. MC PRN (16:20)
[2017-12-22] MEDS: RIVAROXABAN 10 MG TABLET. PO SCH (17:34)
--- NOTE | 2017-12-22 18:17 | PDOC2 ---
CONSULT Date of Consult Date of Consult DATE: 12/22/17 TIME: 18:02 Reason for consultation: Possible clotting disorder? Consult: Hematology oncology, Dr. Jason Lindsay History of present illness: He is a 52-year-old male who comes to us from snf , for left lower extremity injury associated with cellulitis after a laceration , on antibiotics, with a history of blood clotting. Regarding his clotting he had right upper extremity pain in early 2016 in [place] (right knee was replaced in 2014 without physical therapy afterwards and some slight limited range of motion), he tells me an ultrasound showed a blood clot and he was placed on Xarelto for 1 month, as it was too expensive he did not continue this. And then fast forward to October 2017 he had another ultrasound in [facility] for continued right thigh pain and he tells me it showed a clot in his calf at that time and he was placed back on Xarelto. He has remained on Xarelto since, though it was stopped intermittently due to some blood loss associated with the recent trauma and laceration. He's currently back on Xarelto as blood loss from the laceration has stopped after it was sutured. We were consulted due to concern for hypercoagulability. He's not sure of a family history of clotting, though an ultrasound did show poss clot in one of the left LE peroneal veins on 20 December and he has had immobility recently related to this leg trauma. Typically in [place] he's been walking several miles a day. Regarding his leg injury, it is on the left lower extremity, acutely noted after recent fall, with pain extending from calf to his whole leg, associated with swelling, and redness, improving with antibiotics, and was associated with bleeding but that has since stopped. Past medical history: PTSD Osteoarthritis Anxiety Degenerative disc disease Cervical spine stenosis/spondylosis History of right lower extremity clot inadequately treated 2016 History of right calf clot noted October 2017 History of possible left peroneal vein thrombosis November 2017 associated with trauma and injury and immobility Past surgical history: Leg sutures Right knee replacement 2014 Allergies: No known drug allergies Medications: See attached list Social history: In snf, was homeless prior, in snf for drug charges, currently no tobacco (here, has smoked in snf) or alcohol, has been in snf in [place] before Family history: Father with [place], unsure of any known thrombosis in his family Review of systems: Shortness of breath, leg pain, sweating, constipation, headache, numbness and tingling on his right side, rash associated with the cellulitis of the left leg, leg swelling, otherwise 10 point review of systems negative Physical exam: Vitals reviewed Gen.: Well-nourished and well-developed in no acute distress, handcuffed to bed HEENT: mucous membranes moist, head normocephalic atraumatic Neck: Supple, no lymphadenopathy Lymph nodes: No palpable lymphadenopathy neck or axilla Lungs: Breathing comfortably on room air, no evidence of respiratory distress Heart: Regular rate and rhythm Abdomen: Soft, nontender, nondistended Extremities: Some mild edema left lower extremity with cellulitis and bandage over the left anterior calf Skin: Cellulitis left anterior calf, multiple tattoos Neuro: Alert and oriented 3 Psych: Normal mood and affect Lab reviewed: White count 8.5, hemoglobin 15, platelets 232, MCV of 90 INR 2.0 Creatinine 1.0 B12 358 TSH 1.3 Urine drug screen positive for opiates Rads reviewed: Left tib-fib x-ray 15 December 2017 no fracture [address] angiogram no evidence of PE 20 December 2017 LLE u/s questionable clot 1 of 2 paired peroneal veins limited by swelling Case discussed with: Patient, records reviewed in [facility], including labs and radiology, please see note for summary details. Assessment and Plan: He is a 52-year-old male with recent left lower extremity trauma and cellulitis, with a history of right lower extremity thrombosis inadequately treated early 2016, with evidence of persistent clot October 2017 restarted on Xarelto, and possible clot at the left peroneal vein noted recently after left lower extremity trauma and immobility. He continues on Xarelto and is currently tolerating it without active bleeding at this time. 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 Vein thromboses: Would continue Xarelto, it would not be unreasonable to check a hypercoagulable workup, however its best to check them these days after anticoagulation is complete, would recommend 3 months of anticoagulation and then follow-up with me , we can determine if his symptoms have improved enough to stop anticoagulation and whether or not repeat ultrasounds will be needed and then can check a hypercoagulable workup when anticoagulation is complete Cellulitis: Improving with antibiotics, ID is involved Recent bleeding: It appears to have stopped and he can continue his Xarelto at this time Disposition: Per others, we can arrange follow-up once he is discharged as needed Thank you kindly for this consultation, I will return on Wednesday morning but am available in the interim by phone for any further questions. Past Medical History Cardiovascular: No pertinent hx Psych: Anxiety Rheumatologic: No pertinent hx Infectious disease: No pertinent hx ENT: No pertinent hx Social History No ALCOHOL: none Drugs: None, Other Current Problem List Problem List Problems Medical Problems: (1) Contusion of left lower leg, initial encounter Status: Acute (2) Laceration of left lower leg without foreign body Status: Acute Current Medications Current Medications Current Medications Lidocaine/ Epinephrine (LIDOCAINE 1%-EPI 1:100,000 Multi-Dose) 20 ml 1X ONCE INJ Last administered on 12/15/17at 14:56; Start 12/15/17 at 11:45; Stop at 12:56; Status DC Fentanyl Citrate (Fentanyl 2ml Vial) 50 mcg 1X ONCE IV Last administered on at 13:02; Start 12/15/17 at 12:30; Stop 12/15/17 at 12:56; Status DC Gelatin (Gelfoam Size 100) 1 each STK-MED ONCE .ROUTE ; Start 12/15/17 at 13:58 ; Stop 12/15/17 at 13:59; Status DC Gelatin (Gelfoam Size 100) 1 each 1X ONCE TP Last administered on 12/15/17at 14:06; Start 12/15/17 at 14:15; Stop 12/15/17 at 14:16; Status DC Lorazepam (Ativan) 1 mg 1X ONCE PO Last administered on 12/15/17at 16:16; Start 12/15/17 at 16:00; Stop 12/15/17 at 16:01; Status DC Ondansetron HCl (Zofran) 4 mg PRN Q8HRS PRN IV NAUSEA/VOMITING; Start 12/15/17 at 16:00; Stop 12/16/17 at 15:59; Status DC Fentanyl Citrate (Fentanyl 2ml Vial) 50 mcg PRN Q2HR PRN IV PAIN Last administered on 12/17/17at 08:51; Start 12/15/17 at 16:00; Stop 12/17/17 at 15:58 ; Status DC Oxycodone/ Acetaminophen (Percocet 5/325) 1 tab PRN Q4HRS PRN PO MODERATE- SEVERE PAIN Last administered on 12/22/17at 15:54; Start 12/15/17 at 17:30 Lorazepam (Ativan) 0.5 mg PRN Q8HRS PRN PO ANXIETY / AGITATION Last administered on 12/20/17at 23:07; Start 12/15/17 at 17:30 Influenza Virus Vaccine (Afluria Trivalent [id number] Syringe) 0.5 ml ONCE ONCE VAX IM Last administered on 12/16/17at 11:20; Start 12/16/17 at 09:00; Stop at 09:01; Status DC Info (Do NOT chart on this placeholder) 1 each PRN 1X PRN MC SEE COMMENTS; Start 12/16/17 at 03:45; Status Cancel Ondansetron HCl (Zofran) 4 mg PRN Q6HRS PRN IV NAUSEA/VOMITING; Start 12/17/17 at 10:00; Stop 12/18/17 at 09:59; Status DC Fentanyl Citrate (Fentanyl 2ml Vial) 25 mcg PRN Q5MIN PRN IV MILD PAIN; Start 12/17/17 at 10:00; Stop 12/18/17 at 09:59; Status DC Fentanyl Citrate (Fentanyl 2ml Vial) 50 mcg PRN Q5MIN PRN IV MODERATE TO SEVERE PAIN Last administered on 12/17/17at 16:10; Start 12/17/17 at 10:00; Stop 12/18/17 at 09:59; Status DC Morphine Sulfate (Morphine Sulfate) 1 mg PRN Q10MIN PRN IV SEVERE PAIN; Start 12/17/17 at 10:00; Stop 12/18/17 at 09:59; Status DC Ringer's Solution 1,000 ml @ 30 mls/hr Q24H IV Last administered on 12/17/17at 09:53; Start 12/17/17 at 09:53; Stop 12/17/17 at 17:08; Status DC Lidocaine HCl (Xylocaine-Mpf 1% 2ml Vial) 2 ml 1X PRN PRN ID IV START; Start at 10:00; Stop 12/18/17 at 09:59; Status DC Hydromorphone HCl (Dilaudid) 0.5 mg PRN Q10MIN PRN IV SEV PAIN, Second choice; Start 12/17/17 at 10:00; Stop 12/18/17 at 09:59; Status DC Prochlorperazine Edisylate (Compazine) 5 mg PACU PRN PRN IV NAUSEA, MRX1; Start 12/17/17 at 10:00; Stop 12/18/17 at 09:59; Status DC Albuterol Sulfate (Ventolin Neb Soln) 2.5 mg PRN Q4HRS PRN NEB SHORTNESS OF BREATH; Start 12/17/17 at 13:00 Acetaminophen (Tylenol) 500 mg PRN Q6HRS PRN PO MILD PAIN / TEMP Last administered on 12/22/17at 13:57; Start 12/17/17 at 13:00 Dexamethasone Sodium Phosphate (Decadron) 20 mg STK-MED ONCE .ROUTE ; Start at 14:00; Stop 12/17/17 at 14:01; Status DC Famotidine (Pepcid Vial) 20 mg STK-MED ONCE .ROUTE ; Start 12/17/17 at 14:00; Stop 12/17/17 at 14:01; Status DC Ondansetron HCl (Zofran) 4 mg STK-MED ONCE .ROUTE ; Start 12/17/17 at 14:00; Stop 12/17/17 at 14:01; Status DC Propofol 20 ml @ As Directed STK-MED ONCE IV ; Start 12/17/17 at 14:00; Stop at 14:01; Status DC Fentanyl Citrate (Fentanyl 2ml Vial) 100 mcg STK-MED ONCE .ROUTE ; Start at 14:00; Stop 12/17/17 at 14:01; Status DC Midazolam HCl (Versed) 2 mg STK-MED ONCE .ROUTE ; Start 12/17/17 at 14:00; Stop 12/17/17 at 14:02; Status DC Phenylephrine HCl (PHENYLEPHRINE in 0.9% NACL PF) 1 mg STK-MED ONCE IV ; Start 12/17/17 at 15:01; Stop 12/17/17 at 15:02; Status DC Sevoflurane (Ultane) 30 ml STK-MED ONCE IH ; Start 12/17/17 at 15:08; Stop 12/17 at 15:09; Status DC Fentanyl Citrate (Fentanyl 2ml Vial) 100 mcg STK-MED ONCE .ROUTE ; Start at 15:41; Stop 12/17/17 at 15:42; Status DC Morphine Sulfate (Morphine Sulfate) 2 mg PRN Q4HRS PRN IV PAIN Last administered on 12/17/17at 20:06; Start 12/17/17 at 19:45 Iohexol (Omnipaque 300 Mg/ml) 75 ml 1X ONCE IT Last administered on 12/17/17at 22:00; Start 12/17/17 at 22:00; Stop 12/17/17 at 22:01; Status DC Info (CONTRAST GIVEN -- Rx MONITORING) 1 each PRN DAILY PRN MC SEE COMMENTS; Start 12/17/17 at 22:00; Stop 12/19/17 at 21:59; Status DC Enoxaparin Sodium (Lovenox 40mg Syringe) 40 mg 1X ONCE SQ ; Start 12/18/17 at 12:30; Stop 12/18/17 at 12:30; Status DC Docusate Sodium (Colace) 100 mg DAILY PO Last administered on 12/22/17at 08:45; Start 12/19/17 at 09:00 Docusate Sodium (Colace) 100 mg PRN DAILY PRN PO CONSTIPATION (1st Choice); Start 12/18/17 at 12:30 Polyethylene Glycol (miraLAX PACKET) 17 gm 1X ONCE PO Last administered on at 14:41; Start 12/18/17 at 12:30; Stop 12/18/17 at 12:31; Status DC Polyethylene Glycol (miraLAX PACKET) 17 gm DAILY PO Last administered on at 08:45; Start 12/19/17 at 09:00 Magnesium Hydroxide (Milk Of Magnesia) 2,400 mg PRN DAILY PRN PO CONSTIPATION ( 2nd Choice); Start 12/18/17 at 12:30 Bisacodyl (Dulcolax Supp) 10 mg PRN DAILY PRN MD CONSTIPATION; Start 12/18/17 at 12:30 Rivaroxaban (Xarelto) 20 mg DAILYWSUP PO Last administered on 12/22/17at 17:34; Start 12/18/17 at 17:00 Info (Anti-Coagulation Monitoring By Pharmacy) 1 each PRN DAILY PRN MC SEE COMMENTS Last administered on 12/22/17at 16:20; Start 12/18/17 at 12:45 Gabapentin (Neurontin) 300 mg TID PO Last administered on 12/19/17at 14:54; Start 12/18/17 at 14:00; Stop 12/19/17 at 16:42; Status DC Gadobutrol (Gadavist) 9 mmol 1X ONCE IV Last administered on 12/18/17at 14:19; Start 12/18/17 at 14:00; Stop 12/18/17 at 14:01; Status DC Gabapentin (Neurontin) 400 mg TID PO Last administered on 12/22/17at 13:57; Start 12/19/17 at 21:00 Vancomycin HCl 1 gm/Sodium Chloride 250 ml @ 250 mls/hr Q12H IV ; Start at 17:45; Status UNV Vancomycin HCl 2 gm/Sodium Chloride 500 ml @ 250 mls/hr 1X ONCE IV Last administered on 12/20/17at 18:26; Start 12/20/17 at 18:00; Stop 12/20/17 at 19:59 ; Status DC Vancomycin HCl (Vanco Per Pharmacy) 1 each PRN DAILY PRN MC SEE COMMENTS Last administered on 12/20/17at 18:42; Start 12/20/17 at 18:00; Stop 12/21/17 at 10:25 ; Status DC Vancomycin HCl 1.5 gm/Sodium Chloride 500 ml @ 250 mls/hr Q12H IV Last administered on 12/21/17at 05:51; Start 12/21/17 at 06:30; Stop 12/21/17 at 10:25 ; Status DC Vancomycin HCl (Vancomycin Trough Level) 1 each 1X ONCE MC ; Start 12/22/17 at 06:00; Stop 12/22/17 at 06:00; Status DC Cefazolin Sodium 2 gm/Dextrose 50 ml @ 100 mls/hr Q8HRS IV ; Start 12/21/17 at 10:15; Status UNV Cefazolin Sodium/ Dextrose 50 ml @ 100 mls/hr Q8HRS IV Last administered on at 13:57; Start 12/21/17 at 11:00 Lactobacillus Rhamnosus (Culturelle) 1 cap BID PO Last administered on at 08:45; Start 12/21/17 at 21:00 Active Scripts Active Reported Xarelto (Rivaroxaban) 20 Mg Tablet 20 Mg PO DAILY Allergies Allergies: Coded Allergies: No Known Drug Allergies (Unverified , 12/15/17) Vitals VITALS Vital Signs Date Time Temp Pulse Resp B/P (MAP) Pulse Ox O2 Delivery O2 Flow Rate FiO2 12/22/17 16:55 18 96 Room Air 10.0 12/22/17 15:00 97.9 93 138/87 (104) 97.9 Labs Labs Laboratory Tests Test 12/21/17 05:30 White Blood Count 8.5 x10^3/uL (4.0-11.0) Red Blood Count 4.71 x10^6/uL (4.30-5.70) Hemoglobin 15.0 g/dL (13.0-17.5) Hematocrit 42.6 % (39.0-53.0) Mean Corpuscular Volume 90 fL (79-100) Mean Corpuscular Hemoglobin 32 pg (25-35) Mean Corpuscular Hemoglobin Concent 35 g/dL (31-37) Red Cell Distribution Width 14.4 % (11.5-14.5) Platelet Count 232 x10^3/uL (140-400) Neutrophils (%) (Auto) 72 % (31-73) Lymphocytes (%) (Auto) 12 % (24-48) Monocytes (%) (Auto) 9 % (0-9) Eosinophils (%) (Auto) 6 % (0-3) Basophils (%) (Auto) 1 % (0-3) Neutrophils # (Auto) 6.1 x10^3uL (1.8-7.7) Lymphocytes # (Auto) 1.1 x10^3/uL (1.0-4.8) Monocytes # (Auto) 0.8 x10^3/uL (0.0-1.1) Eosinophils # (Auto) 0.5 x10^3/uL (0.0-0.7) Basophils # (Auto) 0.1 x10^3/uL (0.0-0.2) Sodium Level 140 mmol/L (136-145) Potassium Level 4.6 mmol/L (3.5-5.1) Chloride Level 103 mmol/L (98-107) Carbon Dioxide Level 30 mmol/L (21-32) Anion Gap 7 (6-14) Blood Urea Nitrogen 15 mg/dL (8-26) Creatinine 1.0 mg/dL (0.7-1.3) Estimated GFR (Cockcroft-Gault) 78.5 BUN/Creatinine Ratio 15 (6-20) Glucose Level 95 mg/dL (70-99) Calcium Level 8.9 mg/dL (8.5-10.1) Total Bilirubin 0.4 mg/dL (0.2-1.0) Aspartate Amino Transf (AST/SGOT) 13 U/L (15-37) Alanine Aminotransferase (ALT/SGPT) 29 U/L (16-63) Alkaline Phosphatase 71 U/L (46-116) Total Protein 7.0 g/dL (6.4-8.2) Albumin 3.3 g/dL (3.4-5.0) Albumin/Globulin Ratio 0.9 (1.0-1.7) JASON LINDSAY MD Dec 22, 2017 18:17
[2017-12-22 19:00] VITALS: BP 142/90
[2017-12-22] MEDS: MORPHINE SULFATE 2 MG/ML VIAL. IV PRN (22:10)
[2017-12-22 23:00] VITALS: BP 164/106
[2017-12-23 00:10] VITALS: BP 144/97
[2017-12-23 03:00] VITALS: BP 150/93
[2017-12-23 07:00] VITALS: BP 151/103
--- NOTE | 2017-12-23 08:57 | PDOC ---
Infectious Disease Note Subjective Subjective some better but still pain No F/C/S/n/V but occ cramps No SOA/Rash ROS ROS o/w neg Vital Sign Vital Signs Vital Signs Date Time Temp Pulse Resp B/P (MAP) Pulse Ox O2 Delivery O2 Flow Rate FiO2 12/23/17 07:00 97.7 94 17 151/103 (119) 95 Room Air 97.7 12/22/17 16:55 10.0 Physical Exam PHYSICAL EXAM CONSTITUTIONAL: He is cooperative. He is in no acute distress. HEENT: Pupils are equal and reactive. He has normal conjunctivae. Oral cavity, pharynx is clear. NECK: Supple, with good range of motion. LUNGS: Clear to auscultation bilaterally. HEART: S1, S2. ABDOMEN: Soft, nontender and nondistended. He has got positive bowel sounds and a well-healed scar. EXTREMITIES: Without clubbing or cyanosis. Left lower extremity has improved erythema on the anterior aspect. Incision is clean but draining some clear fluid. There is no warmth. Edema is better SKIN: Otherwise warm to touch. NEUROLOGIC: Nonfocal. PSYCHIATRIC: Affect is appropriate. Labs Micro Staphylococcus aureus 4+ Based on susceptibility to oxacillin this isolate would be susceptible to: *Penicillinase-stable penicillins, such as: Cloxacillin, Dicloxacillin, Nafcillin *Beta-lactam combination agents, such as: Amoxicillin-clavulanic acid, Ampicillin-sulbactam, Piperacillin-tazobactam *Oral cephems, such as: Cefaclor, Cefdinir, Cefpodoxime, Cefprozil, Cefuroxime, Cephalexin, Loracarbef *Parenteral cephems, such as: Cefazolin, Cefepime, Cefotaxime, Cefotetan, Ceftaroline, Ceftizoxime, Ceftriaxone, Cefuroxime *Carbapenems, such as: Doripenem, Ertapenem, Imipenem, Meropenem ANTIMICROBIAL SUSCEPTIBILITY Final Comment CONTINUED ON NEXT PAGE RUN DATE: 12/20/17 PAGE 2 RUN TIME: 1911 [facility] [address] [place] [address] Chencho Sifuentes M.D., State Manager SPEC: [id number] PATIENT: NICCI BULL [id number] ( Continued) Procedure Result ANTIMICROBIAL SUSCEPTIBILITY Final (continued) S = Susceptible; I = Intermediate; R = Resistant P = Positive; N = Negative MICS are expressed in micrograms per mL Antibiotic RSLT#1 RSLT#2 RSLT#3 RSLT#4 Ciprofloxacin S<=0.5 Clindamycin R =R Erythromycin R>=8 Gentamicin S<=0.5 Levofloxacin S =0.25 Linezolid S =2 Moxifloxacin S<=0.25 Oxacillin S =0.5 Penicillin R>=0.5 Quinupristin/Dalfopristin S<=0.25 Rifampin S<=0.5 Tetracycline S<=1 Trimethoprim/Sulfa S<=10 Vancomycin S<=0.5 Microbiology 12/17/17 Anaerobic/Aerobic Culture - Preliminary, Resulted 12/17/17 Anaerobic Culture Result 1 (BO) - Preliminary, Resulted 12/17/17 Aerobic Culture - Final, Resulted 12/17/17 Aerobic Culture Result 1 (BO) - Final, Resulted 12/17/17 Antimicrobic Susceptibility - Final, Resulted 12/17/17 Gram Stain - Final, Resulted 12/17/17 Gram Stain Result 1 (BO) - Final, Resulted 12/17/17 Gram Stain Result 2 (BO) - Final, Resulted Objective Assessment LLE infection MSSA Left LE hematoma ? Clot Left peroneal vein Plan Plan of Care Discont Cefazolin - change to po Cephalexin for 10 days Cont elevation Appreciate heme CHARLES Chanel MD Dec 23, 2017 08:57
[2017-12-23] MEDS: POLYETHYLENE GLYCOL 3350 17 GM PACKET. PO SCH (10:18)
[2017-12-23] MEDS: DOCUSATE SODIUM 100 MG CAPSULE. PO SCH (10:18)
[2017-12-23] MEDS: GABAPENTIN 400 MG CAPSULE. PO SCH ×2 (10:18→13:14)
[2017-12-23] MEDS: LACTOBACILLUS RHAMNOSUS GG 1 CAPSULE. PO SCH (10:25)
[2017-12-23] MEDS: oxyCODONE/APAP 5/325 1 TAB TABLET PO PRN (10:26)
--- NOTE | 2017-12-23 10:37 | PDOC ---
PROGRESS NOTES Chief Complaint Chief Complaint blunt injury to soft tissue anterior LLE leg laceration, with marked blood loss s/p deep sutures, IMPROVED on xarelto for contralateral leg DVT incarcerated anxiety d/o, right arm and leg weakness with parathesia, allodynia and tingling pain, CELLULITIS OF WOUND SITE LEFT LEG, IMPROVING MSSA Left LE hematoma Clot Left peroneal vein continue xarelto PLAN d/c IV ANCEF start keflex 500mg poqid x 10 days see PCP 2-3 DAYS History of Present Illness History of Present Illness s/p surg Dr. Wilson, area looks much improved from admit, less swollen restarted Xarelto for right leg DVT - Dx October 2017, first episode, Creatinine is normal anxiety is better today 12/19 will MRI C-spine showed mult problems, discussed with Dr. Figueroa, probable Meralgia paresthetica Vitals Vitals Vital Signs Date Time Temp Pulse Resp B/P (MAP) Pulse Ox O2 Delivery O2 Flow Rate FiO2 12/23/17 10:26 20 95 Room Air 12/23/17 07:00 97.7 94 151/103 (119) 97.7 12/22/17 16:55 10.0 Physical Exam Physical Exam CONSTITUTIONAL: He is cooperative. He is in no acute distress. HEENT: Pupils are equal and reactive. He has normal conjunctivae. Oral cavity, pharynx is clear. NECK: Supple, with good range of motion. LUNGS: Clear to auscultation bilaterally. HEART: S1, S2. ABDOMEN: Soft, nontender and nondistended. He has got positive bowel sounds and a well-healed scar. EXTREMITIES: Without clubbing or cyanosis. Left lower extremity has improved erythema on the anterior aspect. Incision is clean but draining some clear fluid. There is no warmth. Edema is better SKIN: Otherwise warm to touch. NEUROLOGIC: Nonfocal. PSYCHIATRIC: Affect is appropriate. General: Alert, Oriented X3, Cooperative, No acute distress, mild distress Heart: Regular rate, Normal S1, Normal S2 Lungs: Clear Abdomen: Normal bowel sounds, Soft Extremities: No cyanosis, Other (LLE with some edema, pulses present, skin edges in wound) Skin: No rashes, No significant lesion, Other (laceration dressed, REMOVED STILL LOOKS ANGRY, SWOLLEN) Assessment and Plan Assessmemt and Plan Problems Medical Problems: (1) Contusion of left lower leg, initial encounter Status: Acute (2) Laceration of left lower leg without foreign body Status: Acute Comment Review of Relevant I have reviewed the following items jono (where applicable) has been applied. Labs Microbiology 12/17/17 Anaerobic/Aerobic Culture - Final, Complete 12/17/17 Anaerobic Culture Result 1 (BO) - Final, Complete 12/17/17 Aerobic Culture - Final, Complete 12/17/17 Aerobic Culture Result 1 (BO) - Final, Complete 12/17/17 Antimicrobic Susceptibility - Final, Complete 12/17/17 Gram Stain - Final, Complete 12/17/17 Gram Stain Result 1 (BO) - Final, Complete 12/17/17 Gram Stain Result 2 (BO) - Final, Complete Medications Current Medications Lidocaine/ Epinephrine (LIDOCAINE 1%-EPI 1:100,000 Multi-Dose) 20 ml 1X ONCE INJ Last administered on 12/15/17at 14:56; Start 12/15/17 at 11:45; Stop at 12:56; Status DC Fentanyl Citrate (Fentanyl 2ml Vial) 50 mcg 1X ONCE IV Last administered on at 13:02; Start 12/15/17 at 12:30; Stop 12/15/17 at 12:56; Status DC Gelatin (Gelfoam Size 100) 1 each STK-MED ONCE .ROUTE ; Start 12/15/17 at 13:58 ; Stop 12/15/17 at 13:59; Status DC Gelatin (Gelfoam Size 100) 1 each 1X ONCE TP Last administered on 12/15/17at 14:06; Start 12/15/17 at 14:15; Stop 12/15/17 at 14:16; Status DC Lorazepam (Ativan) 1 mg 1X ONCE PO Last administered on 12/15/17at 16:16; Start 12/15/17 at 16:00; Stop 12/15/17 at 16:01; Status DC Ondansetron HCl (Zofran) 4 mg PRN Q8HRS PRN IV NAUSEA/VOMITING; Start 12/15/17 at 16:00; Stop 12/16/17 at 15:59; Status DC Fentanyl Citrate (Fentanyl 2ml Vial) 50 mcg PRN Q2HR PRN IV PAIN Last administered on 12/17/17at 08:51; Start 12/15/17 at 16:00; Stop 12/17/17 at 15:58 ; Status DC Oxycodone/ Acetaminophen (Percocet 5/325) 1 tab PRN Q4HRS PRN PO MODERATE- SEVERE PAIN Last administered on 12/23/17at 10:26; Start 12/15/17 at 17:30 Lorazepam (Ativan) 0.5 mg PRN Q8HRS PRN PO ANXIETY / AGITATION Last administered on 12/20/17at 23:07; Start 12/15/17 at 17:30 Influenza Virus Vaccine (Afluria Trivalent [id number] Syringe) 0.5 ml ONCE ONCE VAX IM Last administered on 12/16/17at 11:20; Start 12/16/17 at 09:00; Stop at 09:01; Status DC Info (Do NOT chart on this placeholder) 1 each PRN 1X PRN MC SEE COMMENTS; Start 12/16/17 at 03:45; Status Cancel Ondansetron HCl (Zofran) 4 mg PRN Q6HRS PRN IV NAUSEA/VOMITING; Start 12/17/17 at 10:00; Stop 12/18/17 at 09:59; Status DC Fentanyl Citrate (Fentanyl 2ml Vial) 25 mcg PRN Q5MIN PRN IV MILD PAIN; Start 12/17/17 at 10:00; Stop 12/18/17 at 09:59; Status DC Fentanyl Citrate (Fentanyl 2ml Vial) 50 mcg PRN Q5MIN PRN IV MODERATE TO SEVERE PAIN Last administered on 12/17/17at 16:10; Start 12/17/17 at 10:00; Stop 12/18/17 at 09:59; Status DC Morphine Sulfate (Morphine Sulfate) 1 mg PRN Q10MIN PRN IV SEVERE PAIN; Start 12/17/17 at 10:00; Stop 12/18/17 at 09:59; Status DC Ringer's Solution 1,000 ml @ 30 mls/hr Q24H IV Last administered on 12/17/17at 09:53; Start 12/17/17 at 09:53; Stop 12/17/17 at 17:08; Status DC Lidocaine HCl (Xylocaine-Mpf 1% 2ml Vial) 2 ml 1X PRN PRN ID IV START; Start at 10:00; Stop 12/18/17 at 09:59; Status DC Hydromorphone HCl (Dilaudid) 0.5 mg PRN Q10MIN PRN IV SEV PAIN, Second choice; Start 12/17/17 at 10:00; Stop 12/18/17 at 09:59; Status DC Prochlorperazine Edisylate (Compazine) 5 mg PACU PRN PRN IV NAUSEA, MRX1; Start 12/17/17 at 10:00; Stop 12/18/17 at 09:59; Status DC Albuterol Sulfate (Ventolin Neb Soln) 2.5 mg PRN Q4HRS PRN NEB SHORTNESS OF BREATH; Start 12/17/17 at 13:00 Acetaminophen (Tylenol) 500 mg PRN Q6HRS PRN PO MILD PAIN / TEMP Last administered on 12/22/17at 13:57; Start 12/17/17 at 13:00 Dexamethasone Sodium Phosphate (Decadron) 20 mg STK-MED ONCE .ROUTE ; Start at 14:00; Stop 12/17/17 at 14:01; Status DC Famotidine (Pepcid Vial) 20 mg STK-MED ONCE .ROUTE ; Start 12/17/17 at 14:00; Stop 12/17/17 at 14:01; Status DC Ondansetron HCl (Zofran) 4 mg STK-MED ONCE .ROUTE ; Start 12/17/17 at 14:00; Stop 12/17/17 at 14:01; Status DC Propofol 20 ml @ As Directed STK-MED ONCE IV ; Start 12/17/17 at 14:00; Stop at 14:01; Status DC Fentanyl Citrate (Fentanyl 2ml Vial) 100 mcg STK-MED ONCE .ROUTE ; Start at 14:00; Stop 12/17/17 at 14:01; Status DC Midazolam HCl (Versed) 2 mg STK-MED ONCE .ROUTE ; Start 12/17/17 at 14:00; Stop 12/17/17 at 14:02; Status DC Phenylephrine HCl (PHENYLEPHRINE in 0.9% NACL PF) 1 mg STK-MED ONCE IV ; Start 12/17/17 at 15:01; Stop 12/17/17 at 15:02; Status DC Sevoflurane (Ultane) 30 ml STK-MED ONCE IH ; Start 12/17/17 at 15:08; Stop 12/17 at 15:09; Status DC Fentanyl Citrate (Fentanyl 2ml Vial) 100 mcg STK-MED ONCE .ROUTE ; Start at 15:41; Stop 12/17/17 at 15:42; Status DC Morphine Sulfate (Morphine Sulfate) 2 mg PRN Q4HRS PRN IV PAIN Last administered on 12/22/17at 22:10; Start 12/17/17 at 19:45 Iohexol (Omnipaque 300 Mg/ml) 75 ml 1X ONCE IT Last administered on 12/17/17at 22:00; Start 12/17/17 at 22:00; Stop 12/17/17 at 22:01; Status DC Info (CONTRAST GIVEN -- Rx MONITORING) 1 each PRN DAILY PRN MC SEE COMMENTS; Start 12/17/17 at 22:00; Stop 12/19/17 at 21:59; Status DC Enoxaparin Sodium (Lovenox 40mg Syringe) 40 mg 1X ONCE SQ ; Start 12/18/17 at 12:30; Stop 12/18/17 at 12:30; Status DC Docusate Sodium (Colace) 100 mg DAILY PO Last administered on 12/23/17at 10:18; Start 12/19/17 at 09:00 Docusate Sodium (Colace) 100 mg PRN DAILY PRN PO CONSTIPATION (1st Choice); Start 12/18/17 at 12:30 Polyethylene Glycol (miraLAX PACKET) 17 gm 1X ONCE PO Last administered on at 14:41; Start 12/18/17 at 12:30; Stop 12/18/17 at 12:31; Status DC Polyethylene Glycol (miraLAX PACKET) 17 gm DAILY PO Last administered on at 10:18; Start 12/19/17 at 09:00 Magnesium Hydroxide (Milk Of Magnesia) 2,400 mg PRN DAILY PRN PO CONSTIPATION ( 2nd Choice); Start 12/18/17 at 12:30 Bisacodyl (Dulcolax Supp) 10 mg PRN DAILY PRN [place] CONSTIPATION; Start 12/18/17 at 12:30 Rivaroxaban (Xarelto) 20 mg DAILYWSUP PO Last administered on 12/22/17at 17:34; Start 12/18/17 at 17:00 Info (Anti-Coagulation Monitoring By Pharmacy) 1 each PRN DAILY PRN MC SEE COMMENTS Last administered on 12/22/17at 16:20; Start 12/18/17 at 12:45 Gabapentin (Neurontin) 300 mg TID PO Last administered on 12/19/17at 14:54; Start 12/18/17 at 14:00; Stop 12/19/17 at 16:42; Status DC Gadobutrol (Gadavist) 9 mmol 1X ONCE IV Last administered on 12/18/17at 14:19; Start 12/18/17 at 14:00; Stop 12/18/17 at 14:01; Status DC Gabapentin (Neurontin) 400 mg TID PO Last administered on 12/23/17at 10:18; Start 12/19/17 at 21:00 Vancomycin HCl 1 gm/Sodium Chloride 250 ml @ 250 mls/hr Q12H IV ; Start at 17:45; Status UNV Vancomycin HCl 2 gm/Sodium Chloride 500 ml @ 250 mls/hr 1X ONCE IV Last administered on 12/20/17at 18:26; Start 12/20/17 at 18:00; Stop 12/20/17 at 19:59 ; Status DC Vancomycin HCl (Vanco Per Pharmacy) 1 each PRN DAILY PRN MC SEE COMMENTS Last administered on 12/20/17at 18:42; Start 12/20/17 at 18:00; Stop 12/21/17 at 10:25 ; Status DC Vancomycin HCl 1.5 gm/Sodium Chloride 500 ml @ 250 mls/hr Q12H IV Last administered on 12/21/17at 05:51; Start 12/21/17 at 06:30; Stop 12/21/17 at 10:25 ; Status DC Vancomycin HCl (Vancomycin Trough Level) 1 each 1X ONCE MC ; Start 12/22/17 at 06:00; Stop 12/22/17 at 06:00; Status DC Cefazolin Sodium 2 gm/Dextrose 50 ml @ 100 mls/hr Q8HRS IV ; Start 12/21/17 at 10:15; Status UNV Cefazolin Sodium/ Dextrose 50 ml @ 100 mls/hr Q8HRS IV Last administered on at 05:37; Start 12/21/17 at 11:00; Stop 12/23/17 at 09:27; Status DC Lactobacillus Rhamnosus (Culturelle) 1 cap BID PO Last administered on at 10:25; Start 12/21/17 at 21:00 Cephalexin HCl (Keflex) 500 mg QID PO ; Start 12/23/17 at 13:00 Active Scripts Active Reported Xarelto (Rivaroxaban) 20 Mg Tablet 20 Mg PO DAILY Vitals/I & O Vital Sign - Last 24 Hours 12/22/17 12/22/17 12/22/17 12/22/17 11:00 15:00 15:54 16:55 Temp 97.5 97.9 97.5 97.9 Pulse 97 93 Resp 18 18 18 B/P (MAP) 137/89 (105) 138/87 (104) Pulse Ox 95 94 96 96 O2 Delivery Room Air Room Air Room Air O2 Flow Rate 10.0 10.0 12/22/17 12/22/17 12/22/17 12/22/17 19:00 21:10 21:15 22:10 Temp 97.9 97.9 Pulse 94 Resp 16 20 20 B/P (MAP) 142/90 (107) Pulse Ox 96 O2 Delivery Room Air Room Air Room Air Room Air 12/22/17 12/22/17 12/22/17 12/23/17 22:10 22:40 23:00 00:10 Temp 97.9 97.9 Pulse 118 Resp 20 20 18 B/P (MAP) 164/106 (125) 144/97 (113) Pulse Ox 93 O2 Delivery Room Air Room Air Room Air 12/23/17 12/23/17 12/23/17 03:00 07:00 10:26 Temp 97.9 97.7 97.9 97.7 Pulse 89 94 Resp 17 17 20 B/P (MAP) 150/93 (112) 151/103 (119) Pulse Ox 94 95 95 O2 Delivery Room Air Room Air Room Air Intake and Output 12/22/17 12/22/17 12/23/17 15:00 23:00 07:00 Intake Total 360 ml 230 ml 50 ml Output Total 1250 ml 1500 ml Balance 360 ml -1020 ml -1450 ml KAREN LÓPEZ MD Dec 23, 2017 10:37
[2017-12-23 11:00] VITALS: BP 137/74
--- NOTE | 2017-12-23 11:48 | PDOC3 ---
Discharge Summary Date of Admission: Dec 15, 2017 Date of Discharge: Dec 23, 2017 Follow-Up: 3-5 days Admitting Diagnosis comment: DISCHARGE DIAGNOSIS====== Chief Complaint blunt injury to soft tissue anterior LLE leg laceration, with marked blood loss s/p deep sutures, IMPROVED on xarelto for contralateral leg DVT incarcerated anxiety d/o, right arm and leg weakness with parathesia, allodynia and tingling pain, CELLULITIS OF WOUND SITE LEFT LEG, IMPROVING MSSA Left LE hematoma Clot Left peroneal vein continue xarelto PLAN d/c IV ANCEF start keflex 500mg poqid x 10 days see PCP 2-3 DAYS History of Present Illness History of Present Illness s/p surg Dr. Wilson, area looks much improved from admit, less swollen restarted Xarelto for right leg DVT - Dx October 2017, first episode, Creatinine is normal anxiety is better today 12/19 will MRI C-spine showed mult problems, discussed with Dr. Figueroa, probable Meralgia paresthetica HEME OK WITH D/C SEE HER IN 4 MONTHS IS ON ROOM AIR CV RRR CHEST CTA ALERT, NAD FINAL DIAGNOSIS Problems Medical Problems: (1) Contusion of left lower leg, initial encounter Status: Acute (2) Laceration of left lower leg without foreign body Status: Acute Brief Hospital Course Mr. Villarreal is a 52 old [sex] who presented with [DEEP LEG WOUND/CELLULITIS ] CONDITION AT DISCHARGE: Improved Discharge Medications Current Medications Lidocaine/ Epinephrine (LIDOCAINE 1%-EPI 1:100,000 Multi-Dose) 20 ml 1X ONCE INJ Last administered on 12/15/17at 14:56; Start 12/15/17 at 11:45; Stop at 12:56; Status DC Fentanyl Citrate (Fentanyl 2ml Vial) 50 mcg 1X ONCE IV Last administered on at 13:02; Start 12/15/17 at 12:30; Stop 12/15/17 at 12:56; Status DC Gelatin (Gelfoam Size 100) 1 each STK-MED ONCE .ROUTE ; Start 12/15/17 at 13:58 ; Stop 12/15/17 at 13:59; Status DC Gelatin (Gelfoam Size 100) 1 each 1X ONCE TP Last administered on 12/15/17at 14:06; Start 12/15/17 at 14:15; Stop 12/15/17 at 14:16; Status DC Lorazepam (Ativan) 1 mg 1X ONCE PO Last administered on 12/15/17at 16:16; Start 12/15/17 at 16:00; Stop 12/15/17 at 16:01; Status DC Ondansetron HCl (Zofran) 4 mg PRN Q8HRS PRN IV NAUSEA/VOMITING; Start 12/15/17 at 16:00; Stop 12/16/17 at 15:59; Status DC Fentanyl Citrate (Fentanyl 2ml Vial) 50 mcg PRN Q2HR PRN IV PAIN Last administered on 12/17/17at 08:51; Start 12/15/17 at 16:00; Stop 12/17/17 at 15:58 ; Status DC Oxycodone/ Acetaminophen (Percocet 5/325) 1 tab PRN Q4HRS PRN PO MODERATE- SEVERE PAIN Last administered on 12/23/17at 10:26; Start 12/15/17 at 17:30 Lorazepam (Ativan) 0.5 mg PRN Q8HRS PRN PO ANXIETY / AGITATION Last administered on 12/20/17at 23:07; Start 12/15/17 at 17:30 Influenza Virus Vaccine (Afluria Trivalent [id number] Syringe) 0.5 ml ONCE ONCE VAX IM Last administered on 12/16/17at 11:20; Start 12/16/17 at 09:00; Stop at 09:01; Status DC Info (Do NOT chart on this placeholder) 1 each PRN 1X PRN MC SEE COMMENTS; Start 12/16/17 at 03:45; Status Cancel Ondansetron HCl (Zofran) 4 mg PRN Q6HRS PRN IV NAUSEA/VOMITING; Start 12/17/17 at 10:00; Stop 12/18/17 at 09:59; Status DC Fentanyl Citrate (Fentanyl 2ml Vial) 25 mcg PRN Q5MIN PRN IV MILD PAIN; Start 12/17/17 at 10:00; Stop 12/18/17 at 09:59; Status DC Fentanyl Citrate (Fentanyl 2ml Vial) 50 mcg PRN Q5MIN PRN IV MODERATE TO SEVERE PAIN Last administered on 12/17/17at 16:10; Start 12/17/17 at 10:00; Stop 12/18/17 at 09:59; Status DC Morphine Sulfate (Morphine Sulfate) 1 mg PRN Q10MIN PRN IV SEVERE PAIN; Start 12/17/17 at 10:00; Stop 12/18/17 at 09:59; Status DC Ringer's Solution 1,000 ml @ 30 mls/hr Q24H IV Last administered on 12/17/17at 09:53; Start 12/17/17 at 09:53; Stop 12/17/17 at 17:08; Status DC Lidocaine HCl (Xylocaine-Mpf 1% 2ml Vial) 2 ml 1X PRN PRN ID IV START; Start at 10:00; Stop 12/18/17 at 09:59; Status DC Hydromorphone HCl (Dilaudid) 0.5 mg PRN Q10MIN PRN IV SEV PAIN, Second choice; Start 12/17/17 at 10:00; Stop 12/18/17 at 09:59; Status DC Prochlorperazine Edisylate (Compazine) 5 mg PACU PRN PRN IV NAUSEA, MRX1; Start 12/17/17 at 10:00; Stop 12/18/17 at 09:59; Status DC Albuterol Sulfate (Ventolin Neb Soln) 2.5 mg PRN Q4HRS PRN NEB SHORTNESS OF BREATH; Start 12/17/17 at 13:00 Acetaminophen (Tylenol) 500 mg PRN Q6HRS PRN PO MILD PAIN / TEMP Last administered on 12/22/17at 13:57; Start 12/17/17 at 13:00 Dexamethasone Sodium Phosphate (Decadron) 20 mg STK-MED ONCE .ROUTE ; Start at 14:00; Stop 12/17/17 at 14:01; Status DC Famotidine (Pepcid Vial) 20 mg STK-MED ONCE .ROUTE ; Start 12/17/17 at 14:00; Stop 12/17/17 at 14:01; Status DC Ondansetron HCl (Zofran) 4 mg STK-MED ONCE .ROUTE ; Start 12/17/17 at 14:00; Stop 12/17/17 at 14:01; Status DC Propofol 20 ml @ As Directed STK-MED ONCE IV ; Start 12/17/17 at 14:00; Stop at 14:01; Status DC Fentanyl Citrate (Fentanyl 2ml Vial) 100 mcg STK-MED ONCE .ROUTE ; Start at 14:00; Stop 12/17/17 at 14:01; Status DC Midazolam HCl (Versed) 2 mg STK-MED ONCE .ROUTE ; Start 12/17/17 at 14:00; Stop 12/17/17 at 14:02; Status DC Phenylephrine HCl (PHENYLEPHRINE in 0.9% NACL PF) 1 mg STK-MED ONCE IV ; Start 12/17/17 at 15:01; Stop 12/17/17 at 15:02; Status DC Sevoflurane (Ultane) 30 ml STK-MED ONCE IH ; Start 12/17/17 at 15:08; Stop 12/17 at 15:09; Status DC Fentanyl Citrate (Fentanyl 2ml Vial) 100 mcg STK-MED ONCE .ROUTE ; Start at 15:41; Stop 12/17/17 at 15:42; Status DC Morphine Sulfate (Morphine Sulfate) 2 mg PRN Q4HRS PRN IV PAIN Last administered on 12/22/17at 22:10; Start 12/17/17 at 19:45 Iohexol (Omnipaque 300 Mg/ml) 75 ml 1X ONCE IT Last administered on 12/17/17at 22:00; Start 12/17/17 at 22:00; Stop 12/17/17 at 22:01; Status DC Info (CONTRAST GIVEN -- Rx MONITORING) 1 each PRN DAILY PRN MC SEE COMMENTS; Start 12/17/17 at 22:00; Stop 12/19/17 at 21:59; Status DC Enoxaparin Sodium (Lovenox 40mg Syringe) 40 mg 1X ONCE SQ ; Start 12/18/17 at 12:30; Stop 12/18/17 at 12:30; Status DC Docusate Sodium (Colace) 100 mg DAILY PO Last administered on 12/23/17at 10:18; Start 12/19/17 at 09:00 Docusate Sodium (Colace) 100 mg PRN DAILY PRN PO CONSTIPATION (1st Choice); Start 12/18/17 at 12:30 Polyethylene Glycol (miraLAX PACKET) 17 gm 1X ONCE PO Last administered on at 14:41; Start 12/18/17 at 12:30; Stop 12/18/17 at 12:31; Status DC Polyethylene Glycol (miraLAX PACKET) 17 gm DAILY PO Last administered on at 10:18; Start 12/19/17 at 09:00 Magnesium Hydroxide (Milk Of Magnesia) 2,400 mg PRN DAILY PRN PO CONSTIPATION ( 2nd Choice); Start 12/18/17 at 12:30 Bisacodyl (Dulcolax Supp) 10 mg PRN DAILY PRN [place] CONSTIPATION; Start 12/18/17 at 12:30 Rivaroxaban (Xarelto) 20 mg DAILYWSUP PO Last administered on 12/22/17at 17:34; Start 12/18/17 at 17:00 Info (Anti-Coagulation Monitoring By Pharmacy) 1 each PRN DAILY PRN MC SEE COMMENTS Last administered on 12/22/17at 16:20; Start 12/18/17 at 12:45 Gabapentin (Neurontin) 300 mg TID PO Last administered on 12/19/17at 14:54; Start 12/18/17 at 14:00; Stop 12/19/17 at 16:42; Status DC Gadobutrol (Gadavist) 9 mmol 1X ONCE IV Last administered on 12/18/17at 14:19; Start 12/18/17 at 14:00; Stop 12/18/17 at 14:01; Status DC Gabapentin (Neurontin) 400 mg TID PO Last administered on 12/23/17at 10:18; Start 12/19/17 at 21:00 Vancomycin HCl 1 gm/Sodium Chloride 250 ml @ 250 mls/hr Q12H IV ; Start at 17:45; Status UNV Vancomycin HCl 2 gm/Sodium Chloride 500 ml @ 250 mls/hr 1X ONCE IV Last administered on 12/20/17at 18:26; Start 12/20/17 at 18:00; Stop 12/20/17 at 19:59 ; Status DC Vancomycin HCl (Vanco Per Pharmacy) 1 each PRN DAILY PRN MC SEE COMMENTS Last administered on 12/20/17at 18:42; Start 12/20/17 at 18:00; Stop 12/21/17 at 10:25 ; Status DC Vancomycin HCl 1.5 gm/Sodium Chloride 500 ml @ 250 mls/hr Q12H IV Last administered on 12/21/17at 05:51; Start 12/21/17 at 06:30; Stop 12/21/17 at 10:25 ; Status DC Vancomycin HCl (Vancomycin Trough Level) 1 each 1X ONCE MC ; Start 12/22/17 at 06:00; Stop 12/22/17 at 06:00; Status DC Cefazolin Sodium 2 gm/Dextrose 50 ml @ 100 mls/hr Q8HRS IV ; Start 12/21/17 at 10:15; Status UNV Cefazolin Sodium/ Dextrose 50 ml @ 100 mls/hr Q8HRS IV Last administered on at 05:37; Start 12/21/17 at 11:00; Stop 12/23/17 at 09:27; Status DC Lactobacillus Rhamnosus (Culturelle) 1 cap BID PO Last administered on at 10:25; Start 12/21/17 at 21:00 Cephalexin HCl (Keflex) 500 mg QID PO ; Start 12/23/17 at 13:00 Active Scripts Active Reported Xarelto (Rivaroxaban) 20 Mg Tablet 20 Mg PO DAILY Vital Signs Vital Signs Date Time Temp Pulse Resp B/P (MAP) Pulse Ox O2 Delivery O2 Flow Rate FiO2 12/23/17 11:26 20 93 Room Air 12/23/17 11:00 97.5 89 137/74 (95) 97.5 12/22/17 16:55 10.0 Allergies Allergies Coded Allergies Type Severity Reaction Last Updated Verified No Known Drug Allergies 12/15/17 No Disposition/Orders: Other (BACK TO CORRECTION) Patient Instructions D/C PLANNING 35 MIN KAREN LÓPEZ MD Dec 23, 2017 11:48
[2017-12-23] MEDS ORDERED: POLY17PO3 PO (11:52)
[2017-12-23] MEDS ORDERED: CEPH250C PO (11:52)
[2017-12-23] MEDS ORDERED: LACT1CAP19 PO (11:52)
[2017-12-23] MEDS ORDERED: GABA400C7 PO (11:52)
[2017-12-23] MEDS ORDERED: CEPHALEXIN 250 MG CAPSULE. PO SCH (13:00)
== END 2017-12-23 14:35 | DRG 570 ==
LOC: ER 11:01 → EEVIPCON 11:01 → 5 NORTH 15:46
PROVIDERS: ADMIT Internal Medicine; ATTEND Internal Medicine
PROC: 0YQJXZZ Repair Left Lower Leg, External Approach (ICD-10-PCS; 2017-12-15)
PROC: 0JBP0ZZ Excision of Left Lower Leg Subcutaneous Tissue and Fascia, Open Approach (ICD-10-PCS; principal; 2017-12-17 15:00)
DX: S81.812A Laceration without foreign body, left lower leg, initial encounter (principal); E41 Nutritional marasmus; E44.0 Moderate protein-calorie malnutrition; L03.116 Cellulitis of left lower limb; S80.12XA Contusion of left lower leg, initial encounter; F43.10 Post-traumatic stress disorder, unspecified; M47.9 Spondylosis, unspecified; M50.322 Other cervical disc degeneration at C5-C6 level; W06.XXXA Fall from bed, initial encounter; Y92.003 Bedroom of unspecified non-institutional (private) residence as the place of occurrence of the external cause; Z79.01 Long term (current) use of anticoagulants; Z82.49 Family history of ischemic heart disease and other diseases of the circulatory system; Z59.0 Homelessness; Z86.718 Personal history of other venous thrombosis and embolism; Z90.49 Acquired absence of other specified parts of digestive tract; Z96.651 Presence of right artificial knee joint; M19.90 Unspecified osteoarthritis, unspecified site; M48.02 Spinal stenosis, cervical region; Y93.89 Activity, other specified; Y99.8 Other external cause status; Z68.26 Body mass index [BMI] 26.0-26.9, adult; B95.61 Methicillin susceptible Staphylococcus aureus infection as the cause of diseases classified elsewhere
CPT/HCPCS: 12002; 36415; 70551; 71275; 72156; 73590; 80053; 80307; 82607; 84443; 85007; 85025; 85610; 85651; 87071; 87075; 87186; 87641; 90471; 90756; 93971; 94640; 96374; A9585; J0690; J1100; J2250; J2270; J2370; J2405; J2704; J3010; J3370; J3490; J7030; J7040; J7120; Q9967; S0028; 99285-25; A4461; G0479; Q2035

== ENCOUNTER 2018-01-01 16:51 | Emergency (ER) | payer OTHER ==
[~2018-01-01] VITALS: Ht 188 cm; Wt 99.8 kg
[~2018-01-01 16:51] MED LIST: CEPH250C PO; GABA400C7 PO; LACT1CAP19 PO; POLY17PO3 PO; RIVA20TA2 PO
[2018-01-01] MEDS: HYDROcodone/APAP 5/325MG 1 TAB TABLET PO ONE (17:55)
--- NOTE | 2018-01-01 17:56 | PHYS DOC ---
Past Medical History Past Medical History: DVT Additional Past Medical Histor: DVT IN R LEG, 10/2017 Past Surgical History: Knee Replacement Additional Past Surgical Histo: I AND D TO LLE ON Alcohol Use: None Drug Use: None Adult General Chief Complaint Chief Complaint: LOWER EXTREMITY SWELLING HPI HPI Patient is a 52 year old male patient in police custody, who presents to the ER with increased swelling of LLE and foul smelling drainage from wound site. Pt states that yesterday he did not receive his antibiotics and that his dressing had not been changed in 3 days. He is currently taking xarelto for blood clots in both of his legs and clindamycin for the infection in his wound. He denies any fever, cough, shortness of breath, or chest pain. Currently, he rates his pain a 8 out of 10 and states he has been taking gabapentin for relief of the pain. Pt is hand cuffed and shackled to the bed with 2 fpc guards present. Review of Systems Review of Systems Constitutional: Denies fever or chills [] Musculoskeletal: Denies back pain or joint pain; reports pain in LLE [] Integument: Denies rash, reports wound of LLE that is draining foul smelling pus Neurologic: Denies headache, focal weakness or sensory changes [] All other systems were reviewed and found to be within normal limits, except as documented in this note. Current Medications Current Medications Current Medications Medications (Trade) Dose Ordered Sig/Francia Start Time Stop Time Status Last Admin Dose Admin Acetaminophen/ Hydrocodone Bitart (Lortab 5/325) 1 tab 1X ONCE 01/01/18 18:00 01/01/18 18:01 DC 01/01/18 17:55 1 TAB Allergies Allergies Allergies Coded Allergies Type Severity Reaction Last Updated Verified No Known Drug Allergies 12/15/17 No Physical Exam Physical Exam Constitutional: Well developed, well nourished, no acute distress, non-toxic appearance. [] HENT: Normocephalic, atraumatic, bilateral external ears normal, nose normal. [ ] Eyes: PERRLA, conjunctiva normal, no discharge. [] Skin: Warm, dry, no erythema, no rash; open wound to LLE measures 5 cm x 3 cm with clear fluid and blood tinged drainage present. [] Extremities: No cyanosis, no clubbing, ROM intact; 2+ edema to LLE with erythema and warmth surrounding wound site. Neurologic: Alert and oriented X 3, normal motor function, normal sensory function, no focal deficits noted. [] Psychologic: Affect normal, judgement normal, mood normal. [] Current Patient Data Vital Signs Vital Signs Date Time Temp Pulse Resp B/P (MAP) Pulse Ox O2 Delivery O2 Flow Rate FiO2 01/01/18 19:48 94 18 163/116 (132) 94 01/01/18 17:55 Room Air 01/01/18 17:17 98.2 98.2 Lab Values Laboratory Tests Test 01/01/18 17:55 White Blood Count 7.9 x10^3/uL (4.0-11.0) Red Blood Count 4.11 x10^6/uL (4.30-5.70) L Hemoglobin 13.0 g/dL (13.0-17.5) Hematocrit 37.1 % (39.0-53.0) L Mean Corpuscular Volume 90 fL (79-100) Mean Corpuscular Hemoglobin 32 pg (25-35) Mean Corpuscular Hemoglobin Concent 35 g/dL (31-37) Red Cell Distribution Width 14.2 % (11.5-14.5) Platelet Count 282 x10^3/uL (140-400) Neutrophils (%) (Auto) 74 % (31-73) H Lymphocytes (%) (Auto) 15 % (24-48) L Monocytes (%) (Auto) 7 % (0-9) Eosinophils (%) (Auto) 4 % (0-3) H Basophils (%) (Auto) 1 % (0-3) Neutrophils # (Auto) 5.8 x10^3uL (1.8-7.7) Lymphocytes # (Auto) 1.2 x10^3/uL (1.0-4.8) Monocytes # (Auto) 0.5 x10^3/uL (0.0-1.1) Eosinophils # (Auto) 0.3 x10^3/uL (0.0-0.7) Basophils # (Auto) 0.1 x10^3/uL (0.0-0.2) Sodium Level 142 mmol/L (136-145) Potassium Level 4.1 mmol/L (3.5-5.1) Chloride Level 106 mmol/L (98-107) Carbon Dioxide Level 27 mmol/L (21-32) Anion Gap 9 (6-14) Blood Urea Nitrogen 8 mg/dL (8-26) Creatinine 0.8 mg/dL (0.7-1.3) Estimated GFR (Cockcroft-Gault) 101.5 BUN/Creatinine Ratio 10 (6-20) Glucose Level 97 mg/dL (70-99) Calcium Level 9.2 mg/dL (8.5-10.1) Total Bilirubin 0.3 mg/dL (0.2-1.0) Aspartate Amino Transferase (AST) 16 U/L (15-37) Alanine Aminotransferase (ALT) 30 U/L (16-63) Alkaline Phosphatase 59 U/L (46-116) Total Protein 7.1 g/dL (6.4-8.2) Albumin 3.4 g/dL (3.4-5.0) Albumin/Globulin Ratio 0.9 (1.0-1.7) L Laboratory Tests 01/01/18 17:55 Laboratory Tests 01/01/18 17:55 EKG EKG [] Radiology/Procedures Radiology/Procedures PROCEDURE: DUPLEX LOWER EXT ARTERIAL LEFT EXAM: Left lower extremity arterial Doppler. HISTORY: Decreased pulses on the left. History of thrombosis. COMPARISON: None. FINDINGS: Grayscale and Doppler analysis of the left lower extremity arterial system was performed. There are triphasic waveforms throughout the left lower extremity. No elevated velocities suggestive of focal stenosis are seen. There is flow distally. IMPRESSION: 1. No evidence of hemodynamically significant stenosis. [] PROCEDURE: VENOUS LOWER EXTREMITY RIGHT EXAM: Right lower extremity venous Doppler. HISTORY: Right lower extremity pain/swelling. History of deep venous thrombosis. COMPARISON: None. FINDINGS: Grayscale and Doppler analysis of the right lower extremity deep venous system was performed with graded compression and augmentation. The common femoral, greater saphenous, superficial femoral, popliteal and calf veins were assessed. There is no evidence of deep venous thrombosis. IMPRESSION: 1. No evidence of deep venous thrombosis. Course & Med Decision Making Course & Med Decision Making Pertinent Labs and Imaging studies reviewed. (See chart for details) 1850- Informed pt of normal labs and unremarkable US of left leg. PT states that he forgot to mention increased pain in his R thigh for the last week, he reports concern because of hx of R leg DVT. Pt reports concern because he has not received his medications every day while incarcerated. Dx: wound recheck, cellulitis of LLE, R thigh pain Arterial US of LLE was unremarkable, labs WNL, US of RLE was negative for DVT. A wound cx of LLE was collected and sent. Wound was cleansed by nursing staff and then dressed. Pt was given one hydrocodone for pain and a meal tray was provided. Pt discharged back into police custody with written instructions for daily wound care and to continue medications as previously prescribed. Patient verbalized an understanding of home care, medications, follow-up, and return to ED instructions and was in agreement with the plan of care. Dragon Disclaimer Dragon Disclaimer This electronic medical record was generated, in whole or in part, using a voice recognition dictation system. Departure Departure Impression: Primary Impression: Cellulitis of left leg Additional Impressions: Wound of left lower extremity Right thigh pain Disposition: HOME, SELF-CARE Condition: STABLE Referrals: UNKNOWN PCP NAME (PCP) Patient Instructions: Cellulitis, [id number], Wound Check Additional Instructions: Continue taking antibiotics as previously prescribed. Recommend daily dressing changes to wound site. Tylenol or motrin as needed for pain. Follow up with your primary care physician for recheck of wound this week. Problem Qualifiers Additional Impressions: Wound of left lower extremity Encounter type: initial encounter Qualified Codes: S81.802A - Unspecified open wound, left lower leg, initial encounter VASYL MOREAU APRN Jan 01, 2018 17:56
[2018-01-01 18:06] LABS: BASO # 0.1 x10^3/uL (0.0-0.2); BASO % 1 % (0-3); EOS # 0.3 x10^3/uL (0.0-0.7); EOS % 4 % (0-3); HEMATOCRIT 37.1 % (39.0-53.0); LYMPH # 1.2 x10^3/uL (1.0-4.8); LYMPH % 15 % (24-48); MEAN CORPUSCULAR HEMOGLOBIN 32 pg (25-35); MEAN CORPUSCULAR HGB CONC 35 g/dL (31-37); MEAN CORPUSCULAR VOLUME 90 fL (79-100); MONO # 0.5 x10^3/uL (0.0-1.1); MONO % 7 % (0-9); NEUT # 5.8 x10^3uL (1.8-7.7); NEUT % 74 % (31-73); PLATELET COUNT 282 x10^3/uL (140-400); RED BLOOD COUNT 4.11 x10^6/uL (4.30-5.70); RED CELL DISTRIBUTION WIDTH 14.2 % (11.5-14.5); WHITE BLOOD COUNT 7.9 x10^3/uL (4.0-11.0)
[2018-01-01 18:15] LABS: CALCIUM 9.2 mg/dL (8.5-10.1); CREATININE 0.8 mg/dL (0.7-1.3); GFR 101.5; POTASSIUM 4.1 mmol/L (3.5-5.1)
[2018-01-01 18:21] LABS: ALBUMIN 3.4 g/dL (3.4-5.0); ALBUMIN/GLOBULIN RATIO 0.9 (1.0-1.7); TOTAL BILIRUBIN 0.3 mg/dL (0.2-1.0); TOTAL PROTEIN 7.1 g/dL (6.4-8.2)
--- NOTE | 2018-01-01 18:40 | RAD ---
EXAM: Left lower extremity arterial Doppler. HISTORY: Decreased pulses on the left. History of thrombosis. COMPARISON: None. FINDINGS: Grayscale and Doppler analysis of the left lower extremity arterial system was performed. There are triphasic waveforms throughout the left lower extremity. No elevated velocities suggestive of focal stenosis are seen. There is flow distally. IMPRESSION: 1. No evidence of hemodynamically significant stenosis. Electronically signed by: Yesenia Andersen MD (01/01/2018 6:37 PM) [facility]
--- NOTE | 2018-01-01 19:27 | RAD ---
EXAM: Right lower extremity venous Doppler. HISTORY: Right lower extremity pain/swelling. History of deep venous thrombosis. COMPARISON: None. FINDINGS: Grayscale and Doppler analysis of the right lower extremity deep venous system was performed with graded compression and augmentation. The common femoral, greater saphenous, superficial femoral, popliteal and calf veins were assessed. There is no evidence of deep venous thrombosis. IMPRESSION: 1. No evidence of deep venous thrombosis. Electronically signed by: Yesenia Andersen MD (01/01/2018 7:24 PM) [facility]
[2018-01-01 19:48] VITALS: BP 163/116
== END 2018-01-01 20:11 | disposition home or self-care (01) ==
LOC: EEVIPCON 16:51 → ER 16:51
DX: S81.802A Unspecified open wound, left lower leg, initial encounter (principal); L03.116 Cellulitis of left lower limb; M79.651 Pain in right thigh; Z86.718 Personal history of other venous thrombosis and embolism; X58.XXXA Exposure to other specified factors, initial encounter; Y93.89 Activity, other specified; Y92.89 Other specified places as the place of occurrence of the external cause; Y99.8 Other external cause status
CPT/HCPCS: 36415; 80053; 85025; 93926; 93971; 99285-25